=== PATIENT | female | born 1950 | race Caucasian/White ===

== ENCOUNTER 2022-01-06 03:29 | Day surgery (SDC) | payer BC, SELFPAY ==
[2021-12-20 15:04] VITALS: BMI 33.0
--- NOTE | 2022-01-05 16:10 | PM.HPGS ---
History of Present Illness History of Present Illness Consent: Risks, benefits, and alternatives have been discussed and questions answered. Patient agrees to proceed with procedure. Chief complaint: neoplasm screening Narrative: Lawanda Worthy is a 71 year old female Referred for colon cancer screening. Her last colonoscopy was 20 years ago Review of Systems Review of Systems: All systems reviewed & are unremarkable except as noted in HPI and below PMFSH Past Medical History Medical History Graves disease Hypothyroidism, unspecified Obesity Ovary removal, prophylactic Rotator cuff dysfunction Surgical History Surgical History H/O radioactive iodine thyroid ablation History of carpal tunnel release Hx of tonsillectomy Family History Family History Other Diabetes mellitus Family history of alcoholism Social History Social History Smoking status: Never smoker Alcohol intake: current Alcohol use details: 1 drink per month Substance use: never Substance use type: does not use Other substance usage details: CBD Living arrangements: with family Spiritual care concerns: No Meds Home Medications and Allergies Home Medications Medication Instructions Recorded Confirmed Type losartan 100 mg tablet 100 mg PO DAILY 02/28/19 12/20/21 History atorvastatin 10 mg tablet 10 mg PO QPM 02/27/20 12/20/21 History docusate sodium 100 mg capsule 100 mg PO ONCE PRN Constipation 02/27/20 12/20/21 History (Colace) baclofen 20 mg tablet 20 mg PO TID 09/01/20 12/20/21 History Jef's wort 300 mg capsule 300 mg PO DAILY 09/07/21 12/20/21 History ascorbic acid (vitamin C) 500 mg 500 mg PO DAILY 09/07/21 12/20/21 History capsule biotin 1 mg capsule 1 mg PO 3XW 09/07/21 12/20/21 History calcium carbonate 500 mg-vitamin 1 tablet PO DAILY 09/07/21 12/20/21 History D3 10 mcg (400 unit) tablet fluticasone propionate 50 1 spray intranasal DAILY PRN 09/07/21 12/20/21 History mcg/actuation nasal Allergy Symptoms spray,suspension (Allergy Relief (fluticasone)) magnesium 30 mg tablet 30 mg PO DAILY 09/07/21 12/20/21 History multivit with 1 tablet PO DAILY 09/07/21 12/20/21 History tneaglda-brvn-IR-lutein 8 mg iron-400 mcg-300 mcg tablet (Multivitamin Women 50 Plus) olopatadine 0.1 % eye drops 1 drp EACH EYE DAILY 09/07/21 12/20/21 History oxycodone-acetaminophen 5 mg-325 1 tablet PO DAILY 09/07/21 12/20/21 History mg tablet (Percocet) vitamin E 200 unit capsule 200 unit PO DAILY 09/07/21 12/20/21 History levothyroxine 137 mcg tablet 137 mcg PO DAILY #90 tabs 10/04/21 12/20/21 Rx (Synthroid) lidocaine 5 % topical patch 1 patch topical PRN PRN Pain 12/20/21 12/20/21 History lifitegrast 5 % eye drops in a 1 drp EACH EYE BID 12/20/21 12/20/21 History dropperette (Xiidra) valacyclovir 500 mg tablet 500 mg PO DAILY PRN other 12/20/21 12/20/21 History liothyronine 5 mcg tablet See Rx Instructions .Route 12/23/21 Rx .COMPLEX #90 tabs sodium,potassium,mag sulfates 17.5 See Rx Instructions .Route 01/04/22 Rx gram-3.13 gram-1.6 gram oral soln .COMPLEX #1 dose pk (Suprep Bowel Prep Kit) Allergies Allergy/AdvReac Type Severity Reaction Status Date / Time diclofenac AdvReac Unknown unknown Verified 01/06/22 07:19 gluten AdvReac Unknown Unknown Verified 01/06/22 07:19 lactose AdvReac Unknown Unknown Verified 01/06/22 07:19 Exam Resp: Auscultation: clear to auscultation bilaterally Cardio: Rate: regular rate Rhythm: regular rhythm GI: GI Palp: Yes Soft to palpation and No Tenderness to palpation present (GI) Assessment and Plan Assessment and plan (1) Colon cancer screening: Code(s): Z12.11 - Encounter for screening for malignant neoplasm
[2022-01-06 07:20] VITALS: BP 167/91; PULSE 81; RESP 18; TEMP 36.2; O2SAT 99
[2022-01-06] MEDS: LACTATED RINGERS 1,000 ML 150 ML IV CONT (07:32)
--- NOTE | 2022-01-06 08:17 | WPDANESEPPF ---
Anes - Initial Pre Proc Eval Procedure: Operation Date: 01/06/22 08:30 Proposed Procedures p Screening Colonoscopy - Izaiah Del Rosario MD Date/Time: 01/06/22 08:17 Surgeon: Izaiah Del Rosario MD Pre Op Diagnosis: neoplasm screening Patient Data Age: 71 Gender: F Height: 1.63 m Weight: 87 kg Last Vital Signs Temp 97.2 F L 01/06/22 07:20 Pulse 81 01/06/22 07:20 Resp 18 01/06/22 07:20 BP 167/91 H 01/06/22 07:20 Pulse Ox 99 01/06/22 07:20 O2 Del Method Room Air 01/06/22 07:20 Allergies Allergy/AdvReac Type Severity Reaction Status Date / Time diclofenac AdvReac Unknown unknown Verified 01/06/22 07:19 gluten AdvReac Unknown Unknown Verified 01/06/22 07:19 lactose AdvReac Unknown Unknown Verified 01/06/22 07:19 Home Medications Medication Instructions Recorded Confirmed Type losartan 100 mg tablet 100 mg PO DAILY 02/28/19 12/20/21 History atorvastatin 10 mg tablet 10 mg PO QPM 02/27/20 12/20/21 History docusate sodium 100 mg capsule 100 mg PO ONCE PRN Constipation 02/27/20 12/20/21 History (Colace) baclofen 20 mg tablet 20 mg PO TID 09/01/20 12/20/21 History [place]'s wort 300 mg capsule 300 mg PO DAILY 09/07/21 12/20/21 History ascorbic acid (vitamin C) 500 mg 500 mg PO DAILY 09/07/21 12/20/21 History capsule biotin 1 mg capsule 1 mg PO 3XW 09/07/21 12/20/21 History calcium carbonate 500 mg-vitamin 1 tablet PO DAILY 09/07/21 12/20/21 History D3 10 mcg (400 unit) tablet fluticasone propionate 50 1 spray intranasal DAILY PRN 09/07/21 12/20/21 History mcg/actuation nasal Allergy Symptoms spray,suspension (Allergy Relief (fluticasone)) magnesium 30 mg tablet 30 mg PO DAILY 09/07/21 12/20/21 History multivit with 1 tablet PO DAILY 09/07/21 12/20/21 History mszoxbeo-wekp-QF-lutein 8 mg iron-400 mcg-300 mcg tablet (Multivitamin Women 50 Plus) olopatadine 0.1 % eye drops 1 drp EACH EYE DAILY 09/07/21 12/20/21 History oxycodone-acetaminophen 5 mg-325 1 tablet PO DAILY 09/07/21 12/20/21 History mg tablet (Percocet) vitamin E 200 unit capsule 200 unit PO DAILY 09/07/21 12/20/21 History levothyroxine 137 mcg tablet 137 mcg PO DAILY #90 tabs 10/04/21 12/20/21 Rx (Synthroid) lidocaine 5 % topical patch 1 patch topical PRN PRN Pain 12/20/21 12/20/21 History lifitegrast 5 % eye drops in a 1 drp EACH EYE BID 12/20/21 12/20/21 History dropperette (Xiidra) valacyclovir 500 mg tablet 500 mg PO DAILY PRN other 12/20/21 12/20/21 History liothyronine 5 mcg tablet See Rx Instructions .Route 12/23/21 Rx .COMPLEX #90 tabs sodium,potassium,mag sulfates 17.5 See Rx Instructions .Route 01/04/22 Rx gram-3.13 gram-1.6 gram oral soln .COMPLEX #1 dose pk (Suprep Bowel Prep Kit) Patient hx anesthesia problems: none Family hx anesthesia problems: none Results Review: All pre-operative results and documents have been reviewed as part of the pre-operative evaluation. [facility] Past Medical History Medical History Graves disease Hypothyroidism, unspecified Obesity Ovary removal, prophylactic Rotator cuff dysfunction Surgical History Surgical History H/O radioactive iodine thyroid ablation History of carpal tunnel release Hx of tonsillectomy Family History Family History Other Diabetes mellitus Family history of alcoholism Social History Social History Smoking status: Never smoker Alcohol intake: current Alcohol use details: 1 drink per month Substance use: never Substance use type: does not use Other substance usage details: CBD Living arrangements: with family Spiritual care concerns: No Anes - Eval Final PreProcedure Day of Procedure 10/13/22 08:17 Patient weight: obese Heart: regular rate and rhythm Lungs
[2022-01-06 08:58] VITALS: BP 145/70; PULSE 65; RESP 18; O2SAT 97
[2022-01-06 09:08] VITALS: BP 121/69; PULSE 66; RESP 23; O2SAT 97
[2022-01-06 09:18] VITALS: BP 146/70; PULSE 61; RESP 20; O2SAT 100
== END 2022-01-06 09:30 | disposition home or self-care (01) ==
PROVIDERS: PCP Family Medicine; Visit Provider Internal Medicine Gastroenterology
PROC: 0DJD8ZZ Inspection of Lower Intestinal Tract, Via Natural or Artificial Opening Endoscopic (ICD-10-PCS; CPT 45378; principal; 2022-01-06 08:30)
DX: Z12.11 Encounter for screening for malignant neoplasm of colon (principal); K57.30 Diverticulosis of large intestine without perforation or abscess without bleeding; E89.0 Postprocedural hypothyroidism; E66.9 Obesity, unspecified; Z68.32 Body mass index [BMI] 32.0-32.9, adult
CPT/HCPCS: 45378; J2704; J7120

== ENCOUNTER 2022-05-24 13:41 | Outpatient (CLI) | payer BC, SELFPAY ==
--- NOTE | ~2022-05-24 | XR_ITS ---
EXAM: XR shoulder LT min 2V DATE: 05/24/2022 14:25 HISTORY: PAIN IN UNSP HAND, PAIN IN UNSP KNEE, PAIN IN UNSP SHOULDER, . COMPARISON: None available. FINDINGS: Decreased mineralization. No fracture or dislocation. No lytic or blastic lesion. Senescen t changes in the lungs. Moderate AC joint and glenohumeral joint degenerative change. Subacromial sheryl rowing. Acromial tip enthesopathy and osteophytosis. Incidental note of multilevel degenerative loyola e in the thoracic spine. No erosion or periosteal change. Soft tissues within normal limits. 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 Likely rotator cuff pathology . Reviewed, dictated and finalized at location K. LATOR ASSEMBLER IMPRESSION: Moderate polyarticular osteoarthritis of the left shoulder. Likely rotator cuff pathology.
--- NOTE | ~2022-05-24 | XR_ITS ---
XR lumbar spine 2-3V 05/24/2022 14:25 Indication: Low back pain Procedure: 3 views of the lumbar spine Comparison: 08/21/2015 Findings: There is disc narrowing at all lumbar levels. There is advanced multilevel facet hypertroph y. There is grade 1 degenerative spondylolisthesis at L4-5. There is mild dextrocurvature of the lumb ar spine. Sacral foramen are symmetric. Impression: 1: Progression of severe lumbar spondylosis. Reviewed, dictated and finalized at location L. ETRICAL NURSE Impression: 1: Progression of severe lumbar spondylosis.
--- NOTE | ~2022-05-24 | XR_ITS ---
. XR cervical spine 4-5V 05/24/2022 14:25 Indication: Neck pain Procedure: 4 views of the cervical spine Comparison: No prior studies for comparison. Findings: Vertebral body heights are maintained. There is disc narrowing at C3-4, C4-5 and C5-6. No p revertebral soft tissue abnormality. There is facet osteoarthropathy at C3-4 through C6-C7, more so o n the left. Lung apices are normal. Odontoid process is normal. Impression: 1: Moderate cervical spondylosis. Reviewed, dictated and finalized at location L. T ROCK LAYER Impression: 1: Moderate cervical spondylosis.
--- NOTE | ~2022-05-24 | XR_ITS ---
EXAM: XR shoulder RT min 2V DATE: 05/24/2022 14:25 HISTORY: PAIN IN UNSP HAND, PAIN IN UNSP KNEE, PAIN IN UNSP SHOULDER, . COMPARISON: None available. FINDINGS: Decreased mineralization. No fracture or dislocation. No lytic or blastic lesion. Moderate AC joint and glenohumeral joint degenerative change. Acromial tip enthesopathy and osteophytosis wit h subacromial space narrowing. No erosion or periosteal change. Soft tissues within normal limits. Se nescent changes in the lungs IMPRESSION: Moderate polyarticular osteoarthritis. Likely rotator cuff pathology. Reviewed, dictated and finalized at location K. OYMENT ENGINEER IMPRESSION: Moderate polyarticular osteoarthritis. Likely rotator cuff patholog yRuma
--- NOTE | ~2022-05-24 | XR_ITS ---
EXAM: XR thoracic spine 3V DATE: 05/24/2022 14:25 HISTORY: PAIN IN UNSP HAND, PAIN IN UNSP KNEE, PAIN IN UNSP SHOULDER, . COMPARISON: 08/29/2017. FINDINGS: The T12-L1 disc space is not completely included in the [id number]-ye-lbgq. Calcified right uppe r lobe granuloma. Senescent changes in the lungs. Exaggerated thoracic kyphosis. 2 mm anterolisthesis at T2-3, alignment otherwise intact. Mild anterior wedge deformity at T11 and T12, stable. Remaining vertebral body heights are maintained. Multilevel disc space narrowing and marginal osteophytosis in cluding bridging anterior and lateral osteophytes at multiple levels. No traumatic malalignment or fr acture. Visualized lung parenchyma is clear. IMPRESSION: Exam limited by field of view, as noted above. Thoracic kyphosis. Minimal grade 1 anterol isthesis at T2-3. Multilevel moderate degenerative disc disease in the thoracic spine. Reviewed, dictated and finalized at location K. LANCE MODEL IMPRESSION: Exam limited by field of view, as noted above. Thoracic kyphosis. M inimal grade 1 anterolisthesis at T2-3. Multilevel moderate degenerative disc d isease in the thoracic spine.
--- NOTE | ~2022-05-24 | XR_ITS ---
EXAM: XR hand LT min 3V, XR hand RT min 3V DATE: 05/24/2022 14:25 HISTORY: PAIN IN UNSP HAND, PAIN IN UNSP KNEE, PAIN IN UNSP SHOULDER, . COMPARISON: None available. FINDINGS: Decreased mineralization. No fracture or dislocation. No lytic or blastic lesion. Scattere d mild-moderate degenerative changes in multiple joints in the bilateral hands, most evident in the D IP joints of the fingers and bilateral triscaphe joints. Mild chondrocalcinosis. No erosion or perios teal change. Soft tissues within normal limits. IMPRESSION: Mild-moderate polyarticular degenerative change, most evident in the DIP joints of the fi ngers and bilateral triscaphe joints. Chondrocalcinosis. Reviewed, dictated and finalized at location K. HAND IMPRESSION: Mild-moderate polyarticular degenerative change, most evident in th e DIP joints of the fingers and bilateral triscaphe joints. Chondrocalcinosis.
--- NOTE | ~2022-05-24 | XR_ITS ---
EXAM: XR_[id number]_CR, XR_[id number]_CR DATE: 05/24/2022 14:25 HISTORY: PAIN IN UNSP HAND, PAIN IN UNSP KNEE, PAIN IN UNSP SHOULDER, . COMPARISON: None available. FINDINGS: Decreased mineralization. No fracture or dislocation. No lytic or blastic lesion. Moderate bilateral medial joint space narrowing. Mild bilateral tricompartmental osteophytosis. No erosion or periosteal change. Soft tissues within normal limits. IMPRESSION: Tricompartmental bilateral knee osteoarthritis, moderate in the medial compartments. Reviewed, dictated and finalized at location K. ATTENDANT IMPRESSION: Tricompartmental bilateral knee osteoarthritis, moderate in the med ial compartments.
== END 2022-05-24 13:42 | disposition home or self-care (01) ==
LOC: ANHIMG 13:46
PROVIDERS: PCP Family Medicine; Visit Provider Pain Medicine Interventional Pain Medicine
DX: M79.643 Pain in unspecified hand (principal); M25.569 Pain in unspecified knee; M25.519 Pain in unspecified shoulder; M40.204 Unspecified kyphosis, thoracic region; M51.34 Other intervertebral disc degeneration, thoracic region; M47.26 Other spondylosis with radiculopathy, lumbar region; M47.22 Other spondylosis with radiculopathy, cervical region; M11.242 Other chondrocalcinosis, left hand; M11.241 Other chondrocalcinosis, right hand; M15.9 Polyosteoarthritis, unspecified
CPT/HCPCS: 72050; 72072; 72100; 73030; 73130; 73560

== ENCOUNTER → 2023-04-05 13:00 | Outpatient (CLI) | payer BC, SELFPAY ==
--- NOTE | ~2023-04-05 | DEXA_ITS ---
Bone Density Report Name: FLOR ALMARAZ Age: 72 Sex: Female Ethnicity: White Date of : 1950 Indication: postmenopausal; screening for osteoporosis; height loss; Referring Provider: Cassy Hamilton Study: Bone densitometry was performed. Exam Date: April 05, 2023 Accession number: [id number] Bone Density: Region BMD T-score Z-score Classification AP Spine (L1, L2) 1.063 0.8 3.0 Normal Femoral Neck (Left) 0.764 -0.8 1.3 Normal Total Hip (Left) 0.790 -1.2 0.5 Osteopenia Femoral Neck (Right) 0.713 -1.2 0.8 Osteopenia Total Hip (Right) 0.750 -1.6 0.2 Osteopenia Total Hip Mean 0.770 -1.4 0.4 Osteopenia World Health Organization criteria for BMD impression classify patients as: Normal (T-score at or above -1.0), Osteopenia (T-score between -1.0 and -2.5), or Osteoporosis (T-score at or below -2.5). 10-year Fracture Risk(1): Major Osteoporotic Fracture 10% Hip Fracture 1.7% Reported Risk Factors: [place] (), Neck BMD=0.713, BMI=27.9 (1) FRAX(R) Version 3.08. Fracture probability calculated for an untreated patient. Fracture probability may be lower if the patient has received treatment. Clinical Information Provided by Patient: Has used the following medications: Calcium, MTV Patient maximum height was 64 Menopause Age: 63 No regular weight bearing exercise Does not regularly consume dairy products Drinks caffeinated beverages Onset of menses at age 11 Number of children 4 Impression: The patient has low bone mass, based on the Right Total Hip T-score. The patient has an estimated ten-year risk of hip fracture of 1.7% and an estimated ten-year risk of major fracture of 10%, based on the WHO FRAX algorithm. Discussion: BONE DENSITY IS LOW AT ONE OR MORE SKELETAL SITES. This patient's lowest T-score is low at one or more skeletal sites. It meets the World Health Organization's (WHO) criteria for ?low bone mass? (T-score between -1.0 and -2.5). The patient's 10-year risk of fracture as calculated by FRAX is less than the threshold where pharmacological therapy is recommended by the National Osteoporosis Foundation (NOF). However, all treatment decisions require clinical judgment and consideration of individual patient factors, including patient preferences, comorbidities, previous drug use, risk factors not captured in the FRAX model (e.g., frailty, falls, vitamin D deficiency, increased bone turnover, interval significant decline in bone density) and possible under or overestimation of fracture risk by FRAX. The patient should follow a healthful lifestyle (good nutrition with adequate calcium and vitamin D, and appropriate weight-bearing exercise). Follow-Up: Consider repeating this study in 2 to 3 years to reassess this patient's status, or sooner if there is some new clinica
== END ==
PROVIDERS: PCP Internal Medicine Endocrinology, Diabetes & Metabolism; Visit Provider Internal Medicine Endocrinology, Diabetes & Metabolism
DX: Z78.0 Asymptomatic menopausal state (principal); M85.852 Other specified disorders of bone density and structure, left thigh; M85.851 Other specified disorders of bone density and structure, right thigh
CPT/HCPCS: 77080

== ENCOUNTER → 2023-04-05 13:01 | Outpatient (CLI) | payer BC, SELFPAY ==
--- NOTE | ~2023-04-05 | MM_ITS ---
EXAMINATION: MM screening chad BI w keisha HISTORY: Screening mammogram TECHNIQUE: Craniocaudal and mediolateral oblique 3-D tomosynthesis images were obtained and synthetic 2-D images were generated. CAD analysis was submitted and interpreted. COMPARISON: 04/15/2008 BREAST PARENCHYMAL COMPOSITION: The breasts are almost entirely fatty. FINDINGS: No suspicious mass, calcification, or architectural distortion are identified in either erika ast to suggest malignancy. There has been no suspicious interval change. IMPRESSION: 1. No mammographic evidence of malignancy. 2. Recommend routine screening mammography in one year. BI-RADS Category 1: Negative Reviewed, dictated and finalized at location A. ICAL APPLICATION MANAGER
== END ==
PROVIDERS: PCP Family Medicine; Visit Provider Family Medicine
DX: Z12.31 Encounter for screening mammogram for malignant neoplasm of breast (principal)
CPT/HCPCS: 77063; 77067

== ENCOUNTER 2023-06-16 12:17 | Outpatient (CLI) | payer BC, SELFPAY ==
--- NOTE | ~2023-06-16 | XR_ITS ---
XR lumbar spine 2-3V DATE: 06/16/2023 12:41 INDICATION: Back pain, radiculopathy. TECHNIQUE: AP, lateral, coned lateral lumbosacral views COMPARISON: May 24, 2022 lumbar spine FINDINGS: There is grade 1 anterolisthesis at L4-5 due to prominent degenerative changes apophyseal j oints. Multilevel degenerative disc disease, moderately severe at L4-5 and severe at the remaining lumbar an d lumbosacral interspaces, especially L5-S1. Minimal dextroscoliosis. The lumbar pedicles are intact. No fracture or bone destruction is evident. Normal alignment at the sacroiliac joints. Osteopenia. IMPRESSION: Osteopenia Minimal dextroscoliosis Multilevel moderately severe to severe degenerative disc disease Grade 1 anterolisthesis at L4-5 due to prominent degenerative change at the apophyseal joints. Reviewed, dictated and finalized at location B. IMPRESSION: Osteopenia Minimal dextroscoliosis Multilevel moderately severe to severe degenerative disc disease Grade 1 anterolisthesis at L4-5 due to prominent degenerative change at the apo physeal joints.
--- NOTE | ~2023-06-16 | XR_ITS ---
XR cervical spine 4-5V DATE: 06/16/2023 12:40 INDICATION: Chronic neck pain, radiculopathy. TECHNIQUE: AP, open-mouth, lateral and flexion and extension lateral views COMPARISON: May 24, 2022 cervical spine FINDINGS: C1 and C2 are normally aligned and the odontoid process is intact. There is stable minimal anterolisthesis at C2-3 and C3-4. No cervical instability is noted on flexion or extension. There is mild loss of interspace height at C4-5 moderately prominent loss of interspace height at C5- 6. There is posterior spurring at C5-6. No fracture or dislocation or locked facet or prevertebral soft tissue swelling is evident. There is prominent anterior change at the apophyseal joints of the cervical spine. IMPRESSION: Prominent degenerative changes of apophyseal joints Minimal anterolisthesis at C2-3 and C3-4 Mild loss of height at C4-5, moderately prominent loss of interspace height and mild posterior spurri ng at C5-6. Reviewed, dictated and finalized at location B. IMPRESSION: Prominent degenerative changes of apophyseal joints Minimal anterolisthesis at C2-3 and C3-4 Mild loss of height at C4-5, moderately prominent loss of interspace height and mild posterior spurring at C5-6.
--- NOTE | ~2023-06-16 | XR_ITS ---
XR thoracic spine 3V DATE: 06/16/2023 12:41 INDICATION: Chronic back pain, radiculopathy TECHNIQUE: AP, lateral, swimmer views COMPARISON: None FINDINGS: Osteopenia. Diffuse idiopathic skeletal hyperostosis of the thoracic spine. No fracture or dislocation or bone destruction. The thoracic pedicles appear intact. No paraspinal so ft tissue thickening. IMPRESSION: Osteopenia Diffuse idiopathic skeletal hyperostosis of the thoracic spine Reviewed, dictated and finalized at location B.
== END 2023-06-16 12:18 | disposition home or self-care (01) ==
LOC: ANHIMG 12:18
PROVIDERS: PCP Family Medicine; Visit Provider Pain Medicine Interventional Pain Medicine
DX: M51.36 Other intervertebral disc degeneration, lumbar region (principal); M85.88 Other specified disorders of bone density and structure, other site; M48.04 Spinal stenosis, thoracic region
CPT/HCPCS: 72050; 72072; 72100

== ENCOUNTER 2024-06-18 14:52 | Outpatient (CLI) | payer BC, SELFPAY ==
--- NOTE | ~2024-06-18 | XR_ITS ---
XR thoracic spine 3V 06/18/2024 15:23 Indication: Radiculopathy Procedure: 3 views thoracic spine Comparison: No prior studies for comparison. Findings: There is advanced multilevel degenerative spondylosis of the thoracic spine with accentuate d kyphosis. There are prominent marginal osteophytes of the mid and lower thoracic spine. Surrounding osseous structures within normal limits. No acute fracture is identified Impression: 1: Severe thoracic spondylosis with accentuated kyphosis. Reviewed, dictated and finalized at location A. Impression: 1: Severe thoracic spondylosis with accentuated kyphosis.
--- NOTE | ~2024-06-18 | XR_ITS ---
XR_CERV2-3V_CR 06/18/2024 15:23 Indication: Radiculopathy Procedure: 3 views cervical spine Comparison: 06/16/2023 Findings: Vertebral body heights are maintained. Normal alignment. No prevertebral soft tissue swelli ng. No acute fracture or traumatic dislocation. There is severe multilevel facet hypertrophy, left gr eater than right. There is multilevel uncinate hypertrophy. Lung apices are normal Impression: 1: Severe cervical spondylosis similar to prior examination. Reviewed, dictated and finalized at location A. Impression: 1: Severe cervical spondylosis similar to prior examination.
--- NOTE | ~2024-06-18 | XR_ITS ---
XR lumbar spine 2-3V 06/18/2024 15:23 Indication: Back pain Procedure: 3 views lumbar spine Comparison: 06/16/2023 Findings: There is disc narrowing at all visualized lower thoracic and lumbar disc levels. There is g rade 1-2 degenerative spondylolisthesis at L4-5 secondary to facet hypertrophy. There is severe facet hypertrophy at L3-4 through L5-S1. There is endplate degenerative change and marginal osteophytes at most levels. There is mild dextrocurvature of the lumbar spine. No fracture or traumatic malalignmen t. Impression: 1: Severe lumbar spondylosis. Reviewed, dictated and finalized at location A. Impression: 1: Severe lumbar spondylosis.
--- OUTSIDE RECORDS SUMMARY | 2024-06-18 17:28 | XMS_ITS | Clinical Summary ---
Author Organization [facility] Address [address] [place] [address] Phone Care Team Providers Care [employer] Certified Network Associate Name Role Phone Janet Adame MD Primary Care Provider [phone] Allergies No known active allergies Medications oxyCODONE-acetami nophen (PERCOCET) 5-325 mg tablet Take 1-2 Tablet by mouth every 6 hours as needed for Pain. Max Daily Amount: 8 Tablet 50 Tablet 0 08/11/19 16 Active atorvastatin (LIPITOR) 10 mg tablet Take 10 mg by mouth Daily LATE. Active baclofen (LIORESAL) 20 mg tablet Take 20 mg by mouth 3 times daily as needed for Pain. Active levothyroxine 125 mcg tablet Take 125 mcg by mouth daily manager of exhibitions and collections. Active liothyronine (CYTOMEL) 5 mcg Tablet Take 5 mcg by mouth daily. Active lisinopril (PRINIVIL) 40 mg tablet Take 40 mg by mouth daily. Active cetirizine (ZYRTEC) 10 mg tablet Take 10 mg by mouth daily. Active multivitamin,tx-i mel-ca-min (THERA-M) 27-0.4 mg Tablet Take 1 Tablet by mouth daily. Active calcium citrate-vitamin D3 (CITRACAL WITH VIT D) 200 mg calcium -250 unit Tablet Take by mouth. Activ e magnesium oxide 250 mg Tablet Take 250 mg by mouth. Active VITAMIN E, DL,TOCOPHERYL ACET, (VITAMIN E, DL,ACETATE,) 400 unit Capsule Take 400 Units by mouth daily. Active ascorbic acid (VITAMIN C) 1,000 mg Tablet Take 1,000 mg by mouth 2 times daily. Active docusate sodium (COLACE) 100 mg capsule Take 100 mg by mouth 2 times daily. Active fluticasone (FLONASE) 50 mcg/spray [place], Suspension Administer 2 Sprays in each nostril daily. Active losartan (COZAAR) 100 mg tablet Take 100 mg by mouth daily. Active omeprazole (PriLOSEC) 40 mg Capsule, Delayed Release(E.C.) 06/23/19 18 Active XIIDRA 5 % Dropperette 07/03/19 18 Active baclofen (LIORESAL) 20 mg tablet Take 1 Tablet (20 mg) by mouth every 8 hours as needed. 270 Tablet 2 12:45 PM CDT 08/27/19 22 Active lifitegrast (Xiidra) 5 % Dropperette Instill one drop into both eyes twice a day. 60 Each 11 3 1:15 PM CDT 09/10/19 22 Active clotrimazole-beta methasone (LOTRISONE) 1-0.05 % Cream APPLY TO THE AFFECTED AND SURROUNDING AREAS OF SKIN TWO TIMES A DAY (MORNING AND EVENING) FOR 2 WEEKS 45 Gram 3 2 2:01 PM CDT 09/14/19 22 Active sodium, potassium and magnesium sulfates (Suprep Bowel Prep Kit) 17.5-3.13-1.6 gram Recon Soln DILUTE; drink full amount early evening before AND next morning at least 2 hr before procedure; follow w 960 mL water 354 mL 2 12:09 PM CDT 01/05/20 22 Active lidocaine (LIDODERM) 5 % Adhesive Patch, Medicated Apply 1-2 patches to the skin daily as needed for 12 hours on and 12 hours off. 60 Patch 1 3 11:12 AM RACING MANAGER 01/29/20 22 Active oxyCODONE-acetami nophen (PERCOCET) 5-325 mg tablet Take 1 tablet by mouth once to twice daily as needed 40 Tablet 3 2:13 PM RACING MANAGER 04/22/19 23 Active trifluridine (VIROPTIC) 1 % solution Administer 1 Drop in right eye every 2 hours while awake. 7.5 mL 3 4:21 PM RACING MANAGER 04/29/19 23 Active valACYclovir (VALTREX) 1 gram tablet Take 1 tablet (1 gram) by mouth 3 times daily for 10 days. 30 Tablet 3 12:42 PM RACING MANAGER 04/29/19 23 Active valACYclovir (VALTREX) 500 mg tablet TAKE ONE TABLET BY MOUTH ONCE DAILY 30 Tablet 5 05/15/19 23 Active baclofen (LIORESAL) 20 mg tablet Take 1 Tablet (20 mg) by mouth every 8 hours as needed. 270 Tablet 1 3 5:40 PM RACING MANAGER 05/20/19 23 Active baclofen (LIORESAL) 20 mg tablet Take 1 Tablet (20 mg) by mouth every 8 hours as needed. 270 Tablet 05/28/19 23 Active oxyCODONE-acetami nophen (PERCOCET) 5-325 mg tablet Take 1 Tablet by mouth 2 times daily as needed. (Do not refill until 07/04/22) 10 Tablet 3 4:27 PM CDT 06/24/19 23 Active baclofen (LIORESAL) 20 mg tablet Take 1 tablet by mouth 3 times daily as needed. 270 Tablet 3 12:38 PM CDT 08/02/19 23 Active oxyCODONE-acetami nophen (PERCOCET) 5-325 mg tablet TAKE ONE TABLET BY MOUTH TWICE DAILY NEEDED. 40 Tablet 3 12:38 PM CDT 08/02/19 23 Active diclofenac sodium ([place]aid) 20 mg/gram /actuation(2 %) solution in metered-dose pumpIndications:P rimary osteoarthritis of both knees Apply 40 mg to affected area 2 times daily. 1 Each 1 08/09/19 23 Active neomycin-polymyxi n-dexAMETHasone (MAXITROL) 3.5mg/mL-10,000 unit/mL-0.1 % suspension Administer 1 Drop into affected eye(s) every 3-4 hours. 5 mL 3 3:16 PM CDT 08/18/19 23 Active oxyCODONE-acetami nophen (PERCOCET) 5-325 mg tablet Take 1 Tablet by mouth 2 times daily as needed. 40 Tablet 3 1:06 PM CDT 08/30/19 23 Active valACYclovir (VALTREX) 500 mg tablet Take 1 Tablet (500 mg) by mouth daily. 30 Tablet 5 3 1:16 PM CDT 09/06/19 23 Active liothyronine (CYTOMEL) 5 mcg Tablet Take 1 Tablet (5 mcg) by mouth daily. 90 Tablet 1 09/13/19 23 Active oxyCODONE-acetami nophen (PERCOCET) 5-325 mg tablet Take 1 Tablet by mouth 2 times daily as needed. 40 Tablet 3 2:03 PM CDT 12/06/19 23 Active lidocaine (LIDODERM) 5 % Adhesive Patch, Medicated APPLY 1-2 PATCHES TO AFFECTED AREA NEEDED. LEAVE ON FOR 12 HOURS, REMOVE FOR 12 HOURS. 60 Patch 1 4 4:38 PM CDT 01/03/20 23 Active esomeprazole (NexIUM) 40 mg Capsule, Delayed Release(E.C.) TAKE 1 CAPSULE BY MOUTH DAILY BEFORE MEALS 30 Capsule 3 3:25 PM RACING MANAGER 02/23/20 23 Active esomeprazole (NexIUM) 40 mg Capsule, Delayed Release(E.C.) TAKE 1 CAPSULE BY MOUTH DAILY BEFORE MEALS 30 Capsule 6 02/23/20 23 Active ondansetron (ZOFRAN ODT) 4 mg Tablet, Rapid Dissolve DISSOLVE 1 TABLET BY MOUTH THREE TIMES DAILY NEEDED 30 Tablet 2 3 3:25 PM RACING MANAGER 02/23/20 23 Active baclofen (LIORESAL) 20 mg tablet Take 1 Tablet (20 mg) by mouth 3 times daily as needed. 270 Tablet 3 4:05 PM RACING MANAGER 02/25/20 23 Active oxyCODONE-acetami nophen (PERCOCET) 5-325 mg tablet Take 1 Tablet by mouth 2 times daily as needed. 40 Tablet 3 10:55 AM RACING MANAGER 02/28/20 23 Active losartan (COZAAR) 100 mg tablet Take 1 Tablet (100 mg) by mouth daily. 90 Tablet 3 4 2:00 PM CDT 05/04/19 24 Active valACYclovir (VALTREX) 500 mg tablet Take 1 Tablet (500 mg) by mouth daily. 30 Tablet 5 4 11:21 AM CDT 06/26/19 24 Active oxyCODONE-acetami nophen (PERCOCET) 5-325 mg tablet Take one tablet by mouth twice daily as needed. m54.17 lumbar region radiculopathy 40 Tablet 4 5:04 PM CDT 09/06/19 24 Active baclofen (LIORESAL) 20 mg tablet Take 1 Tablet (20 mg) by mouth 3 times daily as needed. 270 Tablet 4 4:38 PM CDT 10/04/19 24 Active atorvastatin (LIPITOR) 10 mg tablet TAKE ONE TABLET BY MOUTH ONCE DAILY 90 Tablet 4 5 2:13 PM RACING MANAGER 10/31/19 24 Active losartan (COZAAR) 100 mg tablet Take 1 Tablet (100 mg) by mouth daily. 90 Tablet 3 5 2:18 PM RACING MANAGER 10/31/19 24 Active lifitegrast (Xiidra) 5 % Dropperette Instill one drop into both eyes twice a day 180 Each 4 5 4:22 PM CDT 11/01/19 24 Active Lidocaine 5 % Cream Apply topically to affected area two times daily as needed. 100 Gram 1 11/01/19 24 Active baclofen (LIORESAL) 20 mg tablet Take 1 Tablet (20 mg) by mouth 3 times daily as needed. 270 Tablet 4 12:48 PM CDT 12/27/19 24 Active Lidocaine 5 % Cream Apply to the affected area(s) twice daily as needed 100 Gram 1 12/27/19 24 Active lidocaine (LIDODERM) 5 % Adhesive Patch, Medicated APPLY 1-2 PATCHES ONCE DAILY NEEDED. LEAVE ON FOR 12 HOURS, OFF FOR 12 HOURS. 60 Patch 1 4 2:54 PM CDT 12/29/19 24 Active lidocaine (LIDODERM) 5 % Adhesive Patch, Medicated Apply 1-2 Patches to affected area for 12 hours on, then 12 hours off as needed 60 Patch 1 5 1:12 PM RACING MANAGER 02/20/20 24 Active liothyronine (CYTOMEL) 5 mcg Tablet Take 1 Tablet (5 mcg) by mouth daily. 90 Tablet 1 5 2:07 PM RACING MANAGER 03/11/20 24 Active valACYclovir (VALTREX) 500 mg tablet Take 1 Tablet (500 mg) by mouth 1 time daily as needed. 90 Tablet 4 11:39 AM RACING MANAGER 03/25/20 24 Active baclofen (LIORESAL) 20 mg tablet Take 1 Tablet (20 mg) by mouth 3 times daily as needed. 270 Tablet 5 2:44 PM RACING MANAGER 05/08/19 25 Active oxyCODONE-acetami nophen (PERCOCET) 5-325 mg tablet Take 1 Tablet by mouth 2 times daily as needed. Max Daily Amount: 2 Tablets 40 Tablet 5 2:44 PM RACING MANAGER 05/08/19 25 Active levothyroxine 100 mcg tablet Take 1 Tablet (100 mcg) by mouth daily. 90 Tablet 1 5 2:07 PM RACING MANAGER 05/29/19 25 Active lidocaine (LIDODERM) 5 % Adhesive Patch, Medicated APPLY 1-2 PATCHES TO AFFECTED AREA DAILY NEEDED. LEAVE ON FOR 12 HOURS, REMOVE FOR 12 HOURS. 60 Patch 1 5 4:22 PM CDT 06/11/19 25 Active levothyroxine 100 mcg tablet Take 1 Tablet (100 mcg) by mouth daily. 90 Tablet 1 4 12:03 PM RACING MANAGER 09/18/19 24 025 Discontin [facility], or Other Facility Administered Medication Ordered Dose Route Frequency Start Date End Date Status methylPREDNISolone acetate (DEPO-Medrol) 40 mg/mL injection 80 mgIndications:Troch anteric bursitis of left hip 80 mg Intra-arTICu ONE TIME ONLY 05/10/2016 Active Active Problems No known active problems Encounters Date Type Department Care Team Description 06/12/2024 External Device Data [facility] ABSTRACTION Provider, Abstract 06/01/2024 External Device Data [facility] ABSTRACTION Provider, Abstract 05/31/2024 External Device Data [facility] ABSTRACTION Provider, Abstract 05/28/2024 External Device Data [facility]STRACTION Provider, Abstract 05/14/2024 External Device Data [facility]STRACTION Provider, Abstract 04/23/2024 External Device Data [facility] ABSTRACTION Provider, Abstract 04/17/2024 External Device Data [facility] ABSTRACTION Provider, Abstract 04/17/2024 External Device Data [facility] ABSTRACTION Provider, Abstract 04/10/2024 External Device Data [facility] ABSTRACTION Provider, Abstract from Last 3 Months Immunizations Immunization Administration Dates Next Due (SHINGRIX)(50 YRS UP) ZOSTER VACCINE RECOMBINANT, 0.5 ML, IM 07/04/2023,04/21/2023 INFLUENZA VACCINE HIGH DOSE QUADRIVALENT 65 YR UP PF IM 02/04/2023,12/27/2021 INFLUENZA VACCINE HIGH DOSE TRIVALENT SPLIT VIRUS, (65 YR UP), 0.5ML (PF), IM 12/29/2023 Social History Tobacco Use Types Packs/Day Years Used Date Smoking Tobacco: Never Alcohol Use Standard Drinks/Week Comments Not Asked 0 (1 standard drink = 0.6 oz pur e alcohol) Comments Unknown Sex and Gender Information Value Date Recorded Sex Assigned at Not on file Legal Sex Female 4:44 PM CDT Gender Identity Not on file Sexual Orientation Not on file Last Filed Vital Signs Vital Sign Reading Time Taken Comments Blood Pressure 129/80 08/11/2015 10:42 AM CDT Pulse 73 08/11/2015 10:42 AM CDT Temperature - - Respiratory Rate - - Oxygen Saturation - - Inhaled Oxygen Concentration - - Weight 86.2 kg (190 lb) 09/02/2021 10:47 AM CDT Height 162.6 cm (5' 4 ) 09/02/2021 10:47 AM CDT Body Mass Index 32.61 09/02/2021 10:47 AM CDT Plan of Treatment Health Maintenance Due Date Last Done Comments DTAP/TDAP/TD VACCINES (1 - Tdap) 09/11/1967 COLORECTAL SCREENING 1993 Colorectal Cancer Screening 1993 FIT-DNA Q 3 years 1993 FIT/FOBT Q 1 year 1993 Flex Sig/CT Colonography Q 5 years 1993 PNEUMOCOCCAL VACCINE 50+ YEA RS (1 of 1 - PCV) 1998 OSTEOPOROSIS SCREENING 2013 RSV VACCINE (60+ or ) (1 - 1-dose 75+ series) 09/11/2023 ZOSTER VACCINE Completed 07/04/2023, 04/21/2023 INFLUENZA VACCINE Completed 12/29/2023, , 12/27/2021 Insurance [facility] FEDERAL RX [facility] [employer] Commercial RX DO PLANS (INTERNAL) [facility] Internal Plans Care Teams [employer] Certified Network Associate Relationship Specialty Start Date End Date Janet Adame MD PCP - General Family Practice 08/11/15
--- OUTSIDE RECORDS SUMMARY | 2024-06-18 17:29 | XMS_ITS | CONTINUITY OF CARE DOCUMENT ---
Author Name tuan kekemanuel Address Unknown Organization [facility] Address [address] [place] [address] [address] [place] [address] Phone [phone] Care Team Providers Care Route Relief Driver Name Role Phone Jovani De La Paz MD Unavailable [phone] DAVE ALBERT, MICHELADA Unavailable FRANCINE ACOSTA MD Unavailable PROBLEMS Condition Status Date Provider Notes HYPERCHOLESTEROLEMIA active ? Jovani De La Paz MD HTN ESSENTIAL-03/07 NUC NL EF 66 active ? Ryder Moeller RN HYPOTHYROIDISM active ? Jovani De La Paz MD ABN EKG- 02/05 HOLTER SR PVC HR 48-122 active ? Ryder Moeller RN ENCOUNTERS Date Type Provider Location Encounter Diag nosis - In-person encounter Office Visit Jovani De La Paz MD [facility] - In-person encounter Office Visit Jovani De La Paz MD [facility] HYPERCHOLESTEROLEMIAHTN ESSENTIAL-03/07 NUC NL EF 66HYPOTHYROIDISMABN EKG- 02/05 HOLTER SR PVC HR 48-122 VITAL SIGNS Date Observation Value Provider Body Mass Index (Ratio) 34.77 kg/m2 Eduardo [place] blood pressure, diastolic, left arm 96 mm [Hg] Karel [place] blood pressure, systolic, left arm 140 mm [Hg] Karel [place] blood pressure, diastolic, right arm 89 m m[Hg] Karel [place] blood pressure, systolic, right arm 146 m m[Hg] Karel [place] blood pressure, diastolic 89 mm[Hg] Marga olvera [place] blood pressure, systolic 146 mm[Hg] Dom rizzo [place] pulse rate 74 /min Karel [place] oxygen saturation, oximetry 96 % Karel [place] respiratory rate E&M 16 /min Karel [place] weight E&M 195.6 [lb_av] [facility], [facility], left arm 77 mm [Hg] Ryder Moeller RN blood pressure, systolic, left arm 138 mm [Hg] Ryder Moeller RN blood pressure, diastolic, right arm 88 m m[Hg] Ryder Moeller RN blood pressure, systolic, right arm 133 m m[Hg] Ryder Moeller RN blood pressure, diastolic 77 mm[Hg] Silvestre Moeller RN blood pressure, systolic 138 mm[Hg] Ryder Moeller RN pulse rate 63 /min Ryder Moeller RN oxygen saturation, oximetry 97 % Ryder Moeller RN respiratory rate E&M 16 /min Ryder mendoza RN weight E&M 194 [lb_av] Ryder Moeller RN height E&M 63 [in_i] Ryder Moeller RN ALLERGIES No Known Drug Allergies RESULTS Date Observation Value Provider Reference Range Interpretation Location lipoprotein, beta, serum, point, quantitative, calculated 84 mg/dL Brunilda Carballo cholesterol, serum 157 mg/dL Brunilda Carballo thyroid stimulating hormone, serum 0.126 u[IU]/mL Brunilda Carballo alanine aminotransferase (SGPT), serum 42 1/L Brunilda Carballo aspartate aminotransferase (SGOT), serum 26 1/L Brunilda Carballo creatinine, serum 0.69 mg/dL Brunilda Carballo potassium, serum 4.2 mmol/L Brunilda Carballo sodium, serum 143 mmol/L Brunilda Carballo HISTORY OF MEDICATION USE Medication Status Instructions Dates Provider Indications Com ments NYSTATIN-TRIAMCINOL ONE CREAM active Ryder Moeller RN FLUTICASONE PROPIONATE 50 MCG/ACT NASAL SUSPENSION active Ryder Moeller RN BACLOFEN 20 MG ORAL TABLET active THREE TIMES DAILY Ryder Meoller RN OXAPROZIN 600 MG ORAL TABLET active DAILY Ryder Moeller RN WAL-ZYR 10 MG ORAL TABLET active daily Ryder Moeller RN ATORVASTATIN CALCIUM 10 MG ORAL TABLET active daily Ryder Moeller RN ASPIRIN 81 MG ORAL TABLET active ONE TAB. DAILY Ryder Moeller RN LEVOTHYROXINE SODIUM 200 MCG ORAL TABLET active one tab daily Ryder Moeller RN LISINOPRIL 40 MG ORAL TABLET active ONE TAB. DAILY Ryder Moeller RN SOCIAL HISTORY Date Observation Value Provider social history reviewed E&M reviewed Ryder Moeller RN drug use no Ryder Moeller RN passive cigarette smoke exposure no Ryder Moeller RN social history E&M E thnicity: Ryder Moeller RN caffeine use, average drinks per day yes Ryder Moeller RN smoking status never smoker Ryder Moeller RN social history reviewed E&M reviewed Ryder Moeller RN MENTAL STATUS Date Observation Value Provider assessment of judgme nt and insight E&M Alert and oriented to time, place and person. Mood and affect are normal. Ryder Moeller RN assessment of judgme nt and insight E&M Alert and oriented to time, place and person. Mood and affect are normal. Ryder Moeller RN INSURANCE PROVIDERS Payer name Policy type / Coverage type [place] red [employer] party ID BLUE PREFERRED HMO Blue [facility] [id number] TREATMENT PLAN Date Name Holter Monitor 24 Hr Stress Test - Nuclea r Complete Echo
--- OUTSIDE RECORDS SUMMARY | 2024-06-18 17:29 | XMS_ITS | Data Portability ---
Author Organization [facility] [employer], Main Office Address [address] [place] [address] Assessment No assessment recorded. Plan of Treatment Reminders Order Date Submit Date Provider Last Modified By Organization Details Last Modified Time Details Appointments None recorded. Lab lipase, serum or plasma 2022 023 [email or web address] 11 vivio [facility], [address], [place], [address], 3 11:26:14 amylase, serum or plasma 2022 023 atolliver 11 vivio [facility], [address], [place], [address], 3 11:26:14 CBC w/ auto diff 2022 023 [email or web address] 11 vivio [facility], [address], [place], [address], 3 11:26:14 H. pylori, fingerstick 2022 023 [facility] 200 [facility] [address] Young, [place], [address], 3 11:54:28 TSH + free T4, serum 2022 023 [email or web address] 11 vivio [facility], [address], [place], [address], 3 11:26:15 CMP, serum or plasma 2022 023 [email or web address] 11 [employer], [address], [place], [address], 3 11:26:14 lipid panel, serum 2022 023 [email or web address] 11 [employer] [facility], [address], [place], [address], 3 11:26:14 CK (creatine kinase), total, serum 2022 023 [email or web address] 11 [employer] [facility] [facility], [address], Omar Desouza, [place], [address], 3 11:26:15 Referral None recorded. Procedures None recorded. Surgeries None recorded. Imaging MAMMO, screening, bilateral [address] (Imaging), [address] [place] [address] [address], [place], [address], 3 09:03:03 Medication Orders ondansetron 4 mg disintegrat ing tablet 2022 023 ANDERSON [facility], [address], [place], [place], [id number], 3 11:55:13 esomeprazol e magnesium 40 mg capsule,del ayed release 2022 023 [place] 200 [facility], [address], [place], [place], [id number], 3 11:54:26 Patient TargetsNo targets recorded. Patient Instructions Encounter Date Encounter Id Patient Instructions Last Modified By Organization Details Last Modified Time 02/22/2023 [id number] avoid the foods that aggravate this. Go to ED if not improving [id number] Not available 02/26/2023 10:05:24 Reason for Referral None Reported. Results Created Date Observation Date Name Description Value Unit Range Abnormal Flag Note LastModifiedBy Organization Detail LastModifiedTime 07/07/19 22 07/07/2021 COMPR EHENS RAFY METAB OLIC PANEL glucose 81 mg/dL 65-99 normal Fasti ng refer ence inter laron Not Available [address] [address] [place], [address], 07/07/2021 03:17:57 07/07/19 22 07/07/2021 COMPR EHENS RAFY METAB OLIC PANEL urea nitrogen (BUN) 17 mg/dL 7-25 normal Not Available [address], [address], 07/07/2021 03:17:57 07/07/19 22 07/07/2021 COMPR EHENS RAFY METAB OLIC PANEL creatinine 0.62 mg/dL 0.60-0 .93 normal For patie nts >49 years of age, the refer ence limit for Creat inine is appro ximat eugenio 13% highe r for peopl e ident ified as Afric an-Am forest n. Not Available [address] [address] [place], [address], 07/07/2021 03:17:57 07/07/19 22 07/07/2021 COMPR EHENS RAFY METAB OLIC PANEL eGFR non-afr. trinidadian 90 mL/mi n/1.7 3m2 > or = 60 normal Not Available [employer] [address] [address] [place], [address], 07/07/2021 03:17:57 07/07/19 22 07/07/2021 COMPR EHENS RAFY METAB OLIC PANEL eGFR 104 mL/mi n/1.7 3m2 > or = 60 normal Not Available [employer] [address] [address] [place], [address], 07/07/2021 03:17:57 07/07/19 22 07/07/2021 COMPR EHENS RAFY METAB OLIC PANEL BUN/creatini ne ratio not applic able (calc ) 6-22 Not Available [address], [address], 07/07/2021 03:17:57 07/07/19 22 07/07/2021 COMPR EHENS RAFY METAB OLIC PANEL sodium 144 mmol/ L 135-14 6 normal Not Available [address], [address], 07/07/2021 03:17:57 07/07/19 22 07/07/2021 COMPR EHENS RAFY METAB OLIC PANEL potassium 4.3 mmol/ L 3.5-5. 3 normal Not Available [address], [address], 07/07/2021 03:17:57 07/07/19 22 07/07/2021 COMPR EHENS RAFY METAB OLIC PANEL chloride 106 mmol/ L 98-110 normal Not Available [address], [address], 07/07/2021 03:17:57 07/07/19 22 07/07/2021 COMPR EHENS RAFY METAB OLIC PANEL carbon dioxide 31 mmol/ L 20-32 normal Not Available [address], [address], 07/07/2021 03:17:57 07/07/19 22 07/07/2021 COMPR EHENS RAFY METAB OLIC PANEL calcium 9.4 mg/dL 8.6-10 .4 normal Not Available [address], [address], 07/07/2021 03:17:57 07/07/19 22 07/07/2021 COMPR EHENS RAFY METAB OLIC PANEL protein, total 6.7 g/dL 6.1-8. 1 normal Not Available [address], [address], 07/07/2021 03:17:57 07/07/19 22 07/07/2021 COMPR EHENS RAFY METAB OLIC PANEL albumin 3.9 g/dL 3.6-5. 1 normal Not Available [address], [address], 07/07/2021 03:17:57 07/07/19 22 07/07/2021 COMPR EHENS RAFY METAB OLIC PANEL globulin 2.8 g/dL_ (calc ) 1.9-3. 7 normal Not Available [address], [address], 07/07/2021 03:17:57 07/07/19 22 07/07/2021 COMPR EHENS RAFY METAB OLIC PANEL albumin/glob ulin ratio 1.4 (calc ) 1.0-2. 5 normal Not Available [address], [address], 07/07/2021 03:17:57 07/07/19 22 07/07/2021 COMPR EHENS RAFY METAB OLIC PANEL bilirubin, total 0.5 mg/dL 0.2-1. 2 normal Not Available [address], [address], 07/07/2021 03:17:57 07/07/19 22 07/07/2021 COMPR EHENS RAFY METAB OLIC PANEL alkaline phosphatase 86 U/L 37-153 normal Not Available [address], [address], 07/07/2021 03:17:57 07/07/19 22 07/07/2021 COMPR EHENS RAFY METAB OLIC PANEL AST 17 U/L 10-35 normal Not Available [address], [address], 07/07/2021 03:17:57 07/07/19 22 07/07/2021 COMPR EHENS RAFY METAB OLIC PANEL ALT 20 U/L 6-29 normal Not Available [address] [address] [place], [address], 07/07/2021 03:17:57 07/07/19 22 07/07/2021 LIPID PANEL , STAND BARRY cholesterol, total 181 mg/dL <200 normal Not Available [address] [address] [place], [address], 07/07/2021 03:17:57 07/07/19 22 07/07/2021 LIPID PANEL , STAND BARRY HDL cholesterol 66 mg/dL > or = 50 normal Not Available [facility] [address] [address] [place], [address], 07/07/2021 03:17:57 07/07/19 22 07/07/2021 LIPID PANEL , STAND BARRY triglyceride s 121 mg/dL <150 normal Not Available [address] [address] [place], [address], 07/07/2021 03:17:57 07/07/1907/07/2021 LIPID PANEL , STAND BARRY LDL-choleste rol 93 mg/dL _(alexandra c) normal Refer ence range : <100 Karen able range <100 mg/dL for prima ry preve ntion ; <70 mg/dL for patie nts with CHD or diabe tic patie nts with > or = 2 CHD risk facto rs. LDL-C is now calcu lated using the Ana n-Hop kins calcu amy n, which is a valid ated novel metho d provi karyn simmons r accur acy than the Fried renetta equat ion in the estim ation of LDL-C . Ana iraheta SS et al. ENMANUEL. 2013; 310(1 9): 2061- 2068 (http ://ed ucati on.Qu Harish bagley tics. com/f aq/FA Q164) Not Available [facility] [address] [address] [place], [address], 07/07/2021 03:17:57 07/07/19 22 07/07/2021 LIPID PANEL , STAND BARRY chol/HDLC ratio 2.7 (calc ) <5.0 normal Not Available [facility] [address] [place], [address], 07/07/2021 03:17:57 07/07/19 22 07/07/2021 LIPID PANEL , STAND BARRY non HDL cholesterol 115 mg/dL _(alexandra c) <130 normal For patie nts with diabe edith plus 1 major ASCVD risk facto r, treat ing to a non-H DL-C goal of <100 mg/dL (LDL- C of <70 mg/dL ) is consi moreliad a thera peuti c optio n. Not Available [facility] [address] [address], [place], [address], 07/07/2021 03:17:57 02/23/20 23 02/22/2023 H. pylor i, stevee rstic k H PYLORI negati ve Not Available [facility] [address], [place], [address], 02/22/2023 11:41:00 04/05/19 24 04/05/2023 MAMMO , scree celine, bilat eral No observ ation record ed. [email or web address] [facility] [address], [place], [address], 04/24/2023 17:44:47 06/16/19 24 06/16/2023 XR, cervi alexandra spine , 2 or 3 view No observ ation record ed. [address] [facility] [address], [place], [address], 06/19/2023 10:51:55 06/16/19 24 06/16/2023 XR, thora cic spine , 3 view No observ ation record ed. [address] [facility] [address], [place], [address], 06/19/2023 10:51:34 06/16/19 24 06/16/2023 XR, lumba r spine , 2 view No observ ation record ed. [id number] [facility] [address], [place], [address], 06/19/2023 10:19:29 Result Notes None recorded. Problems Name Problem SNOMED Code Status Onset Date Resolution Date Notes Provider Name and Address Organization Details Recorded Time Achilles tendiniti s 07958541 Active Not Available [facility] 3 08:09:15 Disorder of shoulder 886181761 Active Not Available [facility] 3 08:09:15 On examinati on - lip swelling Active Not Available [facility] 3 08:09:15 Osteoarth ritis of knee 062650431 Active [facility] Available [facility] 3 08:09:16 Urinary symptoms 833237660 Active Not Available [facility] 3 08:09:16 Shoulder joint pain 602745074 Active Not Available [facility] 3 08:09:16 Loss of hair 807926891 Active Not Available [facility] 3 08:09:16 Low back pain 584485865 Active seeing pain management , they prescribe her Percocet EdSHEN Jones [address] [place] [address], [facility] [address], [place], [address] , [place] - [facility] 3 11:56:04 Orthostat ic hypotensi on 33754068 Active Not Available [facility] 3 08:09:16 Right upper quadrant pain 496062759 Active Not Available [facility] 3 08:09:16 Enthesopa thy of hip region 45910148 Active Not Available [facility] 3 08:09:16 Lesion of ulnar nerve 702174152 Active Not Available [facility] 3 08:09:16 Osteoarth ritis 634885517 Active Not Available [facility] 3 08:09:16 Visual impairmen t 888180383 Active Not Available [facility] 3 08:09:16 Dizziness 965704659 Active Not Available [facility] 3 08:09:16 Hypothyro idism 08253802 Active Not Available [facility] 3 08:09:16 Disorder of rotator cuff 306476487 Active Not Available [facility] 3 08:09:17 Ulcer of duodenum 63952001 Active Not Available [facility] 3 08:09:17 Hyperlipi demia 38341012 Active Not Available [facility] 3 08:09:17 Essential hypertens ion 76460950 Active Not Available [facility] 3 08:09:17 Degenerat ion of cervical intervert ebral disc 82987219 Active Not Available [facility] 3 08:09:17 Hemorrhoi ds 27521830 Active Not Available [facility] 3 08:09:17 Degenerat ion of intervert ebral disc 90526320 Active Not Available [facility] 3 08:09:17 Tinea corporis 02303761 Active Not Available [facility] 3 08:09:17 Acute conjuncti vitis 91579020 Active 2022 Janet Adame MD [address], [place], [address] , [employer] 3 12:48:08 Gastroeso phageal reflux disease 355550669 Active 2022 SHEN Minor [address], [place], [address] , [employer] 3 11:34:29 Nausea 566604739 Active 2022 SHEN Minor [address], [place], [address] , [employer] 3 11:53:46 Problem Notes None recorded. Procedures Surgical History Date Name Laterality Status Provider Name and Address Organization Details Recorded Time Tubal Ligation completed Not Available [facility] 05/25/2022 08:05:51 Rotator cuff surgery completed Not Available [facility] 05/25/2022 08:05:51 Tonsillectomy completed Not Available [facility] 05/25/2022 08:05:51 Imaging Results Imaging Date Name Status LastModified by Organiz ation Details LastModified Time 04/05/2023 MAMMO, screening, bilateral completed [email or web address] [place] [address] Imaging [address], [place], [address], 04/24/2023 17:44:47 06/16/2023 XR, cervical spine, 2 or 3 view completed [address], [address], 06/19/2023 10:51:55 06/16/2023 XR, thoracic spine, 3 view completed [address], [address], 06/19/2023 10:51:34 06/16/2023 XR, lumbar spine, 2 view completed [address], [address], 06/19/2023 10:19:29 Procedure Notes None recorded. Medical Equipment None Reported. Allergies Allergen ID Allergen Name Allergen Category Reaction Reaction Severity Criticality Documentation Date Start Date Code Code System Note Provider Name and Address Organization Details Recorded Time 39313 hydrocodo ne Not available other Not available Not available 05/25/2022 5489 RxNorm depre ssion Not Available [facility] 3 08:13:24 86354 diclofena c Not available diarrhea Not available Not available 05/25/2022 3355 RxNorm Not Available [facility] 3 08:13:24 Medications Name Sig Start Date Stop Date Status Note LastModified by Organization Details LastModified Time budesonide 32 mcg/actuati on nasal spray 12/08 completed Not Available Not Available Not Available fluconazole 100 mg tablet Take 1 tablet every day by oral route. active Not Available Not Available No t Available levothyroxi ne 175 mcg tablet active Not Available Not Available Not Available levothyroxi ne 137 mcg tablet active Not Available Not Available Not Available prednisone 10 mg tablet Take by oral route 3 pills daily x 3 days , 2pills daily for 3 days, 1 pill daily for 3 days then d/c active Not Available Not Available No t Available Anusol-HC 2.5 % rectal cream with applicator Insert 1 applicati on 3 times a day by rectal route. active Not Available Not Available No t Available albuterol sulfate 2.5 mg/3 mL (0.083 %) solution for nebulizatio n active Not Available Not Available Not Available atorvastati n 10 mg tablet TAKE ONE TABLET BY MOUTH ONCE DAILY active Not Available Not Available No t Available azithromyci n 250 mg tablet active Not Available Not Available Not Available valacyclovi r 1 gram tablet Take 2 tablets every 12 hours by oral route for 1 day. 09/14 completed Not Available Not Available Not Available hydrocodone 5 mg-acetamin ophen 325 mg tablet active Not Available Not Available No t Available DesOwen 0.05 % topical cream APPLY SPARINGLY AND RUB GENTLY INTO THE AFFECTED AREA(S) BY TOPICAL ROUTE 2 TIMES PER DAY 12/08 completed Not Available Not Available Not Available phenazopyri dine 200 mg tablet 10/02 completed Not Available Not Available Not Available [place] Thyroid 120 mg tablet active Not Available Not Available No t Available Zyrtec 10 mg tablet Take 1 tablet every day by oral route. 10/02 completed 03/28 tab Not Available Not Available Not Available valacyclovi r 500 mg tablet Take 1 Tablet (500 mg) by mouth daily. 2023 active Not Available Not Available Not Avai lable omeprazole 40 mg capsule,del ayed release 1 po daily active Not Available Not Available No t Available liothyronin e 5 mcg tablet TAKE ONE TABLET BY MOUTH ONCE DAILY active Not Available Not Available No t Available tramadol 50 mg tablet Take 1-2 TABLET EVERY 6 HOURS by oral route. 10/02 completed Not Available Not Available Not Available triamcinolo ne acetonide 0.1 % topical cream Apply 1 applicati on twice a day by topical route for 30 days. active Not Available Not Available No t Available baclofen 20 mg tablet 1 po TID active Not Available Not Available N ot Available trifluridin e 1 % eye drops 09/14 completed Not Available Not Available Not Available levothyroxi ne 100 mcg tablet Take 1 tablet every day by oral route. active Not Available Not Available No t Available oxycodone-a cetaminophe n 5 mg-325 mg tablet active Not Available Not Available No t Available prednisolon e acetate 1 % eye drops,suspe nsion active Not Available Not Available Not Available triamcinolo ne acetonide 0.025 % topical cream APPLY A THIN LAYER TO THE AFFECTED AREA(S) BY TOPICAL ROUTE 2 TIMES PER DAY active Not Available Not Available No t Available cephalexin 500 mg capsule Take 1 capsule twice a day by oral route for 7 days. 09/14 completed Not Available Not Available Not Available esomeprazol e magnesium 40 mg capsule,del ayed release Take 1 capsule every day by oral route before meals for 30 days. active Not Available Not Available No t Available levothyroxi ne 125 mcg tablet 09/14 completed Not Available Not Available Not Available neomycin-po lymyxin-dex ameth 3.5 mg/mL-10,00 0 unit/mL-0.1 % eye drops INSTILL 1 DROP INTO AFFECTED EYE(S) BY OPHTHALMI C ROUTE EVERY 3-4 HOURS active Not Available Not Available No t Available Cipro 500 mg tablet Take 1 tablet every 12 hours by oral route. 06/24 completed Not Available Not Available Not Available clotrimazol e-betametha sone 1 %-0.05 % topical cream APPLY TO THE AFFECTED AND SURROUNDI NG AREAS OF SKIN TWO TIMES A DAY (MORNING AND EVENING) FOR 2 WEEKS 09/14 completed Not Available Not Available Not Available lidocaine 5 % topical patch active Not Available Not Available Not Available Antivert 25 mg tablet Take 1 tablet 4 times a day by oral route for 30 days. 01/20 completed Not Available Not Available Not Available levothyroxi ne 150 mcg tablet Take 1 tablet every day by oral route. active Not Available Not Available No t Available gabapentin 300 mg capsule 10/02 completed Not Available Not Available Not Available diclofenac sodium 75 mg tablet,kojo yed release active Not Available Not Available Not Available hydrocortis one 2.5 % topical cream 12/08 completed Not Available Not Available Not Available codeine 10 mg-guaifene sin 100 mg/5 mL oral liquid active Not Available Not Available Not Available azelastine 137 mcg (0.1 %) nasal spray active Not Available Not Available Not Available oxaprozin 600 mg tablet 1 tab BID active Not Available Not Available No t Available methylpredn isolone 4 mg tablets in a dose pack Take by oral routeas directed 12/08 completed Not Available Not Available Not Available hydrocortis one 2.5 % topical ointment 10/02 completed Not Available Not Available Not Available lisinopril 40 mg tablet 1 po daily 12/08 completed Not Available Not Available Not Available ondansetron 4 mg disintegrat ing tablet Place 1 tablet 3 times a day by transling ual route as needed for 30 days. active Not Available Not Available No t Available cefdinir 300 mg capsule active Not Available Not Available Not Available losartan 100 mg tablet Take 1 Tablet (100 mg) by mouth daily. active Not Available Not Available No t Available fluticasone propionate 50 mcg/actuati on nasal spray,suspe nsion 2 sprays in each nostril daily 12/08 completed Not Available Not Available Not Available levothyroxi ne 112 mcg tablet active Not Available Not Available Not Available nabumetone 500 mg tablet active Not Available Not Available Not Available Tylenol 650 mg tablet,exte nded release Take 2 tablets every 8 hours by oral route. 12/08 completed Not Available Not Available Not Available [facility] Wort 300 mg tablet Take by oral route. 2013 active Not Available Not Available Not Avai lable Vigamox 0.5 % eye drops active Not Available Not Available Not Available nitrofurant oin monohydrate /macrocryst als 100 mg capsule 10/02 completed Not Available Not Available Not Available Nevanac 0.1 % eye drops,suspe nsion active Not Available Not Available Not Available magnesium 2015 active Not Available Not Available Not Avai lable melatonin 2013 active Not Available Not Available Not Avai lable Artificial Tears 06/24 completed Not Available Not Available Not Available Citracal plus D 2013 active Not Available Not Available Not Avai lable biotin 06/24 completed Not Available Not Available Not Available Colace once daily 06/24 completed Not Available Not Available Not Available ginkgo biloba 2013 active Not Available Not Available Not Avai lable Prilosec 2015 active Not Available Not Available Not Avai lable Mar Aspirin 81 mg daily 09/14 completed Not Available Not Available Not Available Centrum 2013 active Not Available Not Available Not Avai lable ProAir HFA 90 mcg/actuati on aerosol inhaler active Not Available Not Available Not Available levothyroxi ne 150 mcg capsule Take 1 capsule every day by oral route. 2012 active Not Available Not Available Not Avai lable B12 09/14 completed Not Available Not Available Not Available Afluria 2819-6349(P F) 45 mcg (15 mcg x 3)/0.5 mL intramuscul ar syringe active Not Available Not Available N ot Available Pennsaid 20 mg/gram/act uation (2 %) topical soln in metered-dos e pump APPLY 2 PUMPS TO THE AFFECTED AREA(S) TWICE A DAY FOR 30 DAYS 06/24 completed Not Available Not Available Not Available Afluria 4374-7871(P F) 45 mcg (15 mcg x 3)/0.5 mL intramuscul ar syringe active Not Available Not Available N ot Available Fluarix Quad 6670-7991 (PF) 60 mcg (15 mcg x 4)/0.5 mL IM syringe active Not Available Not Available N ot Available Fluarix Quad 4484-7244 (PF) 60 mcg (15 mcg x 4)/0.5 mL IM syringe 12/08 completed Not Available Not Available Not Available Xiidra 5 % eye drops in a dropperette active Not Available Not Available Not Available Afluria Quad 4928-9594 (PF) 60 mcg/0.5 mL intramuscul ar syringe 10/02 completed Not Available Not Available Not Available Flucelvax Quad 60 mcg (15 mcg x 4)/0.5 mL IM suspension 10/02 completed Not Available Not Available Not Available Vitals Date Recorded Body mass index (BMI) Body height Oxygen saturation Oxygen saturation in Arterial blood by Pulse oximetry Heart rate Body temperature Body weight Systolic blood pressure Diastolic blood pressure Provider Name and Address Organization Details Last Updated DateTime 2 34.2 kg/m2 162.56 cm 95 % 95 % 79 /min 98.1 [degF] 02072.8 8 g 138 mm[Hg] 80 mm[Hg] Not Available [facility] 3 08:07:50 Date Recorded Body height Body mass index (BMI) Body weight Body temperature Heart rate Oxygen saturation Oxygen saturation in Arterial blood by Pulse oximetry Systolic blood pressure Diastolic blood pressure Provider Name and Address Organization Details Last Updated DateTime 3 162.56 cm 29.7 kg/m2 27497.4 8 g 97.9 [degF] 64 /min 97 % 97 % 142 mm[Hg] 82 mm[Hg] SUZANNA Molina [place] - [facility] [employer] [facility] 3 14:53:31 Date Recorded Body height Body mass index (BMI) Body weight Body temperature Heart rate Oxygen saturation Oxygen saturation in Arterial blood by Pulse oximetry Systolic blood pressure Diastolic blood pressure Provider Name and Address Organization Details Last Updated DateTime 3 162.56 cm 27.8 kg/m2 96811.9 6 g 97.4 [degF] 85 /min 95 % 95 % 118 mm[Hg] 62 mm[Hg] Mary Delgado [place] Collect [facility] [employer] [facility] 3 11:19:41 Social History Question Answer Notes LastModified by [employer] Details LastModified Time Tobacco Smoking Status Never Smoker Not Available [facility] 05/25/2022 08:05:40 What Is Your Level Of Caffeine Consumption? Moderate [id number] Information not available 05/25/2022 What Type Of Diet Are You Following? GLUTENFREE [id number] Information not available 05/25/2022 Are You Following A Low Salt Diet? No [id number] Information not available 05/25/2022 Do You Use Any Illicit Or Recreational Drugs? No [id number] Information not available 05/25/2022 Do You Have Any Dietary Restrictions? Yes Gluten Sensitive [id number] Information not available 05/25/2022 Sex: Unknown Functional Status Question Answer Note LastModified by [employer] Details LastModified Time What is your exercise level? Occasional [id number] Information not available 05/25/2022 Mental Status None recorded. Family History Relationship Description Onset Age of this Age Resolved Age Notes LastModified by Organization Details LastModified Time Father No current problems or disability [id number] Not available 05/25/2022 08:05:52 Mother No current problems or disability [id number] Not available 05/25/2022 08:05:52 Medical History No medical history recorded. Gynecological HistoryNo gynecological history recorded. Obstetrics History GPAL:G 0 P 0 0 0 0 Past Encounters Encounter ID Performer Location Encounter Start Date Encounter Closed Date Diagnosis/Indication Diagnosis SNOMED-CT Code Diagnosis ICD10 Code Diagnosis Note [id number] [facility] [place] [address] [facility] [place] [address] [address] 06/24/2021 00:00:00 06/24/2021 19:56:49 [id number] Janet Adame MD [facility] [place] [address] [facility] [place] [address] 09/14/2022 14:41:19 09/14/2022 15:50:05 Adult health examination 624770509 Z00.00 Screening for malignant neoplasm of breast 976010414 Z12.39 [id number] SHEN Minor [facility] [place] [address] [facility] [place] [address] [address] 02/22/2023 11:09:54 02/22/2023 11:55:44 Gastroesophageal reflux disease 632460811 K21.9 Hyperlipidemia 37017726 E78.5 Hypothyroidism 00021345 E03.9 Nausea 562516515 R11.0 Health Concerns Section Related Observation LastModified by Organization Detai ls LastModified Time None Recorded Concern Status LastModified by Organization Details LastModified Time None Recorded Advance Directives Directive None Recorded Payers Encounter Date Sequence Insurance Name Policy Number Policy Richardson Covered Member ID Richardson Member ID Guarantor Name 09/14/2022 1 [place]) 106 Telly Worthy [id number] Lawanda Worthy 02/22/2023 1 [place] 106 Telly Worthy [id number] Lawanda Worthy Notes Date Note Type Note Provider Name and Address Organization Details Recorded Time 09/14/2022 text/html Here today for annual physical. Eyes are bothering her and has gone to ophthomologist. Had herpes of the eye. Has spine issues being kept at bay. No BW needed. Not UTD with mammogram. Janet Adame MD [address], [facility] [address], [place], [address], [facility] Pick a Student [facility] 09/15/2022 06:38:21 02/22/2023 text/html nausea , vomiting (projectile). is keeping some things down. no fever , no bad food , no bad water SHEN Minor [address], [facility] [address], [place], [address], [facility] Collect [facility] Pick a Student [facility] 02/26/2023 10:05:37 OBGyn Episode No OBEpisode recorded.
== END 2024-06-18 14:53 | disposition home or self-care (01) ==
PROVIDERS: PCP Internal Medicine; Visit Provider Pain Medicine Interventional Pain Medicine
DX: M47.23 Other spondylosis with radiculopathy, cervicothoracic region (principal); M47.24 Other spondylosis with radiculopathy, thoracic region; M47.25 Other spondylosis with radiculopathy, thoracolumbar region; M47.22 Other spondylosis with radiculopathy, cervical region; M47.26 Other spondylosis with radiculopathy, lumbar region
CPT/HCPCS: 72040; 72072; 72100

== ENCOUNTER 2024-11-14 07:31 | Inpatient (IN) | payer MEDICARE, BC, SELFPAY ==
[2024-11-14] VITALS (23 sets, daily range): BP systolic 150–185; BP diastolic 62–83; PULSE 64–78; RESP 16–18; TEMP 36.6–37; O2SAT 94–99; BMI 29.9
--- NOTE | ~2024-11-14 | CT_ITS ---
EXAM: CT abdomen pelvis w con - 11/14/2024 8:35 CDT History: 74 years old Female with upper abdominal pain TECHNIQUE: Multidetector CT of the abdomen and pelvis with intravenous contrast. Coronal and sagittal reformats were also provided for review. Automatic exposure control was used for this study. CONTRAST: 100 cc of Optiray 350 was used for this study. COMPARISON: None Available. FINDINGS: VISUALIZED CHEST: Mild dependent changes. ABDOMEN and PELVIS: LIVER: Within normal limits. GALLBLADDER: Cholelithiasis. BILE DUCTS: No dilatation. SPLEEN: Within normal limits. PANCREAS: Within normal limits. ADRENAL GLANDS: Within normal limits. KIDNEYS and URETERS: 5 mm calculus in right kidney. Mild hydroureteronephrosis without obstructive calculus. Multiple bilateral subcentimeter hypodensities, too small to accurately characterize. 1.1 cm mass in left kidney, incompletely evaluated on current examination. URINARY BLADDER: Within normal limits. STOMACH and BOWEL: Diffuse wall thickening, mucosal hyperenhancement and surrounding fat stranding around the stomach, duodenum, proximal jejunum and splenic flexure of the colon. Findings are concerning for gastroenteritis / enterocolitis. Colonic diverticulosis without acute diverticulitis. REPRODUCTIVE ORGANS: Within normal limits. MESENTERY/PERITONEAL CAVITY: No free fluid or pneumoperitoneum. LYMPH NODES: No abdominal or pelvic lymphadenopathy. ABDOMINAL WALL: Within normal limits. VASCULATURE: Within normal limits. MUSCULOSKELETAL: Multilevel degenerative changes of the spine.. Grade 1 anterolisthesis of L4 on L5, likely degenerative. IMPRESSION: 1. Diffuse wall thickening and surrounding fat stranding around the stomach, duodenum and proximal jejunum. Findings are concerning for gastroenteritis. 2. 5 mm calculus in right kidney. Mild hydroureteronephrosis without obstructive calculus. 3. 1.1 cm mass in left kidney, incompletely evaluated on current examination. Correlate with prior imaging if available to document stability otherwise renal mass protocol MRI or CT is recommended for further evaluation. Reviewed, dictated and finalized at location A. IMPRESSION: 1. Diffuse wall thickening and surrounding fat stranding around the stomach, d uodenum and proximal jejunum. Findings are concerning for gastroenteritis. 2. 5 mm calculus in right kidney. Mild hydroureteronephrosis without obstructi ve calculus. 3. 1.1 cm mass in left kidney, incompletely evaluated on current examination. Correlate with prior imaging if available to document stability otherwise renal mass protocol MRI or CT is recommended for further evaluation.
--- NOTE | ~2024-11-14 | US_ITS ---
US abdomen limited EXAMINATION: US Abdomen Complete INDICATION: Pancreatitis PROCEDURE: Realtime High Resolution abdomen ultrasound. COMPARISON: CT abdomen pelvis 11/14/2024 FINDINGS: Visualized pancreas is heterogeneous with a small amount of surrounding peripancreatic fluid. Visualized liver is unremarkable. Portal vein was not visualized. There are a few gallstones in the gallbladder. Right kidney measures 11.7 x 6.5 x 7.1 cm. There are multiple renal cysts, largest measures 1.8 cm. This study is limited due to patient imaging characteristics. Common duct measures 7 mm. Positive Mojica's sign according to the technologist. IMPRESSION: 1: Visualized pancreas is heterogeneous with a small amount of surrounding peripancreatic fluid. Findings are concerning for acute pancreatitis. Correlate clinically. Recommend follow-up to resolution. 2. Cholelithiasis. 3. Multiple right renal cysts. 4. Positive Mojica's sign according to the technologist was suggest the possibility of acute cholecystitis. Gallbladder wall is mildly thickened. If of concern, consider a HIDA scan. Reviewed, dictated and finalized at location Q. IMPRESSION: 1: Visualized pancreas is heterogeneous with a small amount of surrounding chris pancreatic fluid. Findings are concerning for acute pancreatitis. Correlate cli nically. Recommend follow-up to resolution. 2. Cholelithiasis. 3. Multiple right renal cysts. 4. Positive Mojica's sign according to the technologist was suggest the possibi lity of acute cholecystitis. Gallbladder wall is mildly thickened. If of concer n, consider a HIDA scan.
--- NOTE | ~2024-11-14 | XR_ITS ---
EXAMINATION: 11/17/2024 11:41 DATE: 11/17/2024 11:54 CDT INDICATION: Cholecystectomy, intraoperative cholangiogram TECHNIQUE: Intraoperative cholangiogram with a single contrast run(s) provided for review. FINDINGS: There is cannulation and contrast administration into the cystic duct remnant. There is no discrete filling defect in the common bile duct to suggest common bile duct stone. Contrast flows freely into the duodenum. IMPRESSION: 1. Patent cystic duct remnant and common bile duct, without common bile duct stone. Reviewed, dictated and finalized at location O. IMPRESSION: 1. Patent cystic duct remnant and common bile duct, without common bile duct s tone.
--- NOTE | 2024-11-14 07:38 | ED.ABDPAIN ---
HPI - Abdominal Pain General Chief Complaint: Abdominal Pain Stated Complaint: abdominal pain Time Seen by Provider: 11/14/24 07:38 Source: patient Mode of arrival: ambulatory Limitations: no limitations History of Present Illness HPI narrative: 74 years old white female came to the ED from home with her complaining of nausea, a lot of vomiting started yesterday noon associated with epigastric pain. She denies any fever or chills. She denies radiation of pain, unable to keep her home medication down. History of hypertension hyperlipidemia, hypothyroidism And peptic ulcer disease Does not smoke or drink or use drugs. Currently her main complaint is feeling thirsty Related Data Home Medications ?Medication ?Instructions ?Recorded ?Confirmed ?Last Taken ?Type baclofen 20 mg tablet 20 mg PO TID 09/01/20 11/14/24 Unknown History ascorbic acid (vitamin C) 500 mg 500 mg PO DAILY 09/07/21 11/14/24 Unknown History capsule calcium 500 mg (as 1 tablet PO DAILY 09/07/21 11/14/24 Unknown History carbonate)-vitamin D3 10 mcg (400 unit) tablet fluticasone propionate 50 1 spray intranasal DAILY PRN 09/07/21 11/14/24 Unknown History mcg/actuation nasal Allergy Symptoms spray,suspension (Allergy Relief (fluticasone)) magnesium 30 mg tablet 30 mg PO DAILY 09/07/21 11/14/24 Unknown History olopatadine 0.1 % eye drops 1 drp EACH EYE DAILY 09/07/21 11/14/24 Unknown History lifitegrast 5 % eye drops in a 1 drp EACH EYE BID 12/20/21 11/14/24 Unknown History dropperette (Xiidra) melatonin 10 mg capsule 10 mg PO QHS 09/12/22 11/14/24 Unknown History oxycodone-acetaminophen 5 mg-325 0.5 tablet PO DAILY PRN pain 06/07/24 11/14/24 Unknown History mg tablet (Percocet) escitalopram oxalate 5 mg tablet 2.5 mg PO DAILY 11/11/24 11/14/24 Unknown History (Lexapro) multivitamin (Daily Multi-Vitamin 1 tablet PO DAILY 11/11/24 11/14/24 Unknown History tablet) omeprazole 20 mg capsule,delayed 20 mg PO DAILY 11/11/24 11/14/24 Unknown History release lidocaine 5 % topical patch 1 patch topical Q24H 11/14/24 11/14/24 Unknown History Allergies Allergy/AdvReac Type Severity Reaction Status Date / Time diclofenac AdvReac Unknown unknown Verified 11/11/24 10:52 gluten AdvReac Unknown Unknown Verified 11/11/24 10:52 lactose AdvReac Unknown Unknown Verified 11/11/24 10:52 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 Graves disease Obesity Hypothyroidism, unspecified Rotator cuff dysfunction Ovary removal, prophylactic Surgical History Surgical History H/O radioactive iodine thyroid ablation Hx of tonsillectomy History of carpal tunnel release Family History Family History Other Diabetes mellitus Family history of alcoholism Social History Social History Smoking status: Never smoker Alcohol intake: current Alcohol use details: maybe 1 glass of wine per month Substance use: never Do You Feel Safe in your Home?: Yes Lack of Transportation: No Lack of Food: Never True Current Housing: I Have Housing Concerned About Future Housing: No Difficulty Paying Gas/Electric Bills: No Difficulty Paying for Meds: No Currently Unemployed: No Education: Associate Degree Difficulty w/ Childcare or Family Care: No Living arrangements: with family Spiritual care concerns: No Exam Narrative: General appearance: Well-developed, well-nourished Skin: Normal color Head: Normocephalic, nontraumatic Eyes: Clear conjunctiva ENT: dry oral cavity Neck: Supple, nontender Chest and respiratory: Airway patent, no respiratory distress, no accessory muscle use Heart: Regular rate/rhythm Abdomen: Soft, epigastric tenderness, no organomegaly, quiet bowel sounds Vascular: Normal peripheral pulses, normal capillary refill. Musculoskeletal: Normal range of motion, nontender back Neurologic: Alert and oriented ?3, CAPACITOR REPAIRER is normal as tested, no gross motor deficit Course Vital Signs Vital signs: Vital Signs Temperature 36.6 C 11/14/24 07:37 Pulse Rate 78 11/14/24 07:37 Respiratory Rate 18 11/14/24 07:37 Blood Pressure 185/79 H 11/14/24 07:37 Pulse Oximetry 97 11/14/24 07:37 Oxygen Delivery Room Air 11/14/24 07:37 Temperature 36.4 C 11/15/24 19:51 Pulse Rate 81 11/15/24 19:51 Respiratory Rate 16 11/15/24 19:51 Blood Pressure 154/83 H 11/15/24 19:51 Pulse Oximetry 95 11/15/24 19:51 Oxygen Delivery Room Air 11/14/24 20:00 MDM - Abdominal Pain MDM Narrative Medical decision making narrative: patient presents with nausea and vomiting and epigastric pain Vital signs showing blood pressure 185/79 otherwise within normal limit Physical examination showing dry oral mouth and epigastric tenderness Differential diagnosis include pancreatitis, esophagitis, gastritis, peptic ulcer disease, cholecystitis blood workup today includes CBC, CMP, lipase showed WBC 17.5, BUN 21, creatinine 0.6, lactic acid 3.2 total bilirubin 1.[address] abdomen and pelvis with IV contrast showed finding concerning for gastroenteritis,, 1.1 cm mass left kidney Diagnosis pancreatitis, gastroenteritis Admit to hospitalist Consult the GI Differential Diagnosis Differential diagnosis: Likely abdominal pain, constipation, diverticulitis, gastroenteritis, pancreatitis and small bowel obstruction Medical Records Attestation: I reviewed the patient's medical records. Lab Data Attestation: I reviewed the patient's lab results. 11/15/24 04:40 11/15/24 04:40 Labs: Lab Results 11/14/24 11/14/24 Range/Units 07:55 09:35 WBC 17.5 H (4.5-10.0) K/mm3 RBC 5.83 H (4.2-5.4) M/mm3 Hgb 17.2 H (12.0-15.0) g/dL Hct 52.6 H (37.0-47.0) % MCV 90.2 (80-100) fl MCH 29.5 (26-34) pg MCHC 32.7 (32-36) g/dl RDW 15.1 H (11.5-14.5) % Plt Count 274 (150-375) k/mm3 MPV 10.2 (7.4-10.4) fl Immature Gran % (Auto) 0.5 (0-0.5) % Neut % (Auto) 83.1 H (45.5-73.1) % Lymph % (Auto) 7.8 L (18.3-44.2) % Dare % (Auto) 8.3 (2.6-8.5) % Eos % (Auto) 0.1 (0-4.4) % Baso % (Auto) 0.2 (0.2-1.2) % Lymph # (Auto) 1.36 (0.9-3.2) K/mm3 Dare # (Auto) 1.5 H (0.1-0.6) K/mm3 Eos # (Auto) 0.0 (0-0.3) K/mm3 Baso # (Auto) 0.0 (0.0-0.1) K/mm3 Abs Immat Gran (auto) 0.08 H (0.00-0.031) K/mm3 Absolute Neuts (auto) 14.6 H (1.3-6.7) K/mm3 Absolute Nucleated RBC 0.000 (0.0-0.012) K/mm3 Nucleated RBC % 0.0 (0.0-0.2) % Sodium 138 (137-145) mmol/L Potassium 3.8 (3.4-5.0) mmol/L Chloride 105 (98-107) mmol/L Carbon Dioxide 23 (22-30) mmol/L Anion Gap 10 (4-12) mmol/L BUN 21 H (7-17) mg/dL Creatinine 0.60 L (0.7-1.0) mg/dL Estim Creat Clear Calc 63 ml/min Estimated GFR > 60 (59 - ) Glucose 179 H (65-110) mg/dL Lactic Acid 3.2 H (0.7-2.0) mmol/L Calcium 9.4 (8.4-10.2) mg/dL Total Bilirubin 1.5 H (0.2-1.3) mg/dL AST 41 H (14-36) U/L ALT 37 H (6-35) U/L Alkaline Phosphatase 71 (38-126) U/L Total Protein 7.5 (6.3-8.2) g/dL Albumin 4.3 (3.5-5.1) g/dL Lipase 3343 H (23-300) U/L Urine Color Yellow (Yellow) Urine Appearance Clear (Clear) Urine pH 7.0 (5.0-9.0) Ur Specific Dixon > 1.045 H (1.001-1.035) Urine Protein Negative (Negative) mg/dL Urine Glucose (UA) Negative (Negative) mg/dL Urine Ketones Negative (Negative) mg/dL Ur Blood (Man) 2+ H (Negative) Urine Nitrate Negative (Negative) Urine Bilirubin Negative (Negative) Urine Urobilinogen 0.2 (<2.0) mg/dL Leukocyte Esterase Rfl Negative (Negative) BROOKS/UL Urine RBC 11-20 H (0-2) /hpf Urine WBC 6-10 H (0-3) /hpf Ur Squamous Epith Cells None seen (Few) /hpf Urine Bacteria None seen /hpf Urine Casts 0-2 MANOJ Screen Pending Influenza A (RT-PCR) Negative (Negative) Influenza B (RT-PCR) Negative (Negative) RSV (RT-PCR) Negative (Negative) SARS-CoV-2 RNA (RT-PCR) Negative (Negative) Imaging Data Radiologist's impression: ITS Impressions Abdomen/Pelvis CT 11/14/24 08:53 IMPRESSION: 1. Diffuse wall thickening and surrounding fat stranding around the stomach, duodenum and proximal jejunum. Findings are concerning for gastroenteritis. 2. 5 mm calculus in right kidney. Mild hydroureteronephrosis without obstructive calculus. 3. 1.1 cm mass in left kidney, incompletely evaluated on current examination. Correlate with prior imaging if available to document stability otherwise renal mass protocol MRI or CT is recommended for further evaluation. Abdomen Ultrasound 11/14/24 15:35 IMPRESSION: 1: Visualized pancreas is heterogeneous with a small amount of surrounding peripancreatic fluid. Findings are concerning for acute pancreatitis. Correlate clinically. Recommend follow-up to resolution. 2. Cholelithiasis. 3. Multiple right renal cysts. 4. Positive Mojica's sign according to the technologist was suggest the possibility of acute cholecystitis. Gallbladder wall is mildly thickened. If of concern, consider a HIDA scan. Critical Care Time Critical Care Time Critical Care Time: Yes Total Critical Care Time: 30 Discharge Plan Discharge Clinical Impression: Acute pancreatitis Patient Disposition: Still a Patient Condition: Stable
[2024-11-14] MEDS: SODIUM CHLORIDE 0.9% IV 1,000 ML 999 ML IV CONT (07:48)
[2024-11-14 08:04] LABS: Hematocrit 52.6 % (37.0-47.0); Hemoglobin 17.2 g/dL (12.0-15.0); Immature Granulocyte Percent A 0.5 % (0-0.5); Lymphocytes Absolute Auto 1.36 K/mm3 (0.9-3.2); Mean Corpuscular HGB Conc 32.7 g/dl (32-36); Mean Corpuscular Hemoglobin 29.5 pg (26-34); Mean Corpuscular Volume 90.2 fl (80-100); Nucleated Red Blood Cells Absolute Auto 0.000 K/mm3 (0.0-0.012); Nucleated Red Blood Cells Perc 0.0 % (0.0-0.2); Platelet Count Result 274 k/mm3 (150-375); Red Blood Count 5.83 M/mm3 (4.2-5.4); White Blood Count 17.5 K/mm3 (4.5-10.0)
[2024-11-14] MEDS: MORPHINE SULFATE (*CRX) 4 MG/ML INJ IV PUSH (08:21)
[2024-11-14] MEDS: ONDANSETRON INJ 4 MG/2 ML VIAL 8 MG IV PUSH (08:21)
[2024-11-14 08:24] LABS: Alanine Aminotransferase 37 U/L (6-35); Albumin Level 4.3 g/dL (3.5-5.1); Alkaline Phosphatase 71 U/L (38-126); Anion Gap 10 mmol/L (4-12); Aspartate Amino Transferase 41 U/L (14-36); Bilirubin,Total 1.5 mg/dL (0.2-1.3); Blood Urea Nitrogen 21 mg/dL (7-17); Calcium 9.4 mg/dL (8.4-10.2); Carbon Dioxide 23 mmol/L (22-30); Chloride 105 mmol/L (98-107); Estimated CRCL calculation 63 ml/min; Estimated Glomerular Filt Rate > 60; Glucose 179 mg/dL (65-110); Potassium 3.8 mmol/L (3.4-5.0); Sodium 138 mmol/L (137-145); Total Protein 7.5 g/dL (6.3-8.2)
[2024-11-14 08:42] LABS: Lipase 3343 U/L (23-300)
--- OUTSIDE RECORDS SUMMARY | 2024-11-14 08:43 | XMS_ITS | Clinical Summary ---
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 Active liothyronine (CYTOMEL) 5 mcg Tablet Take 5 mcg by mouth daily. Active lisinopril (PRINIVIL) 40 mg tablet Take 40 mg by mouth daily. Active cetirizine (ZYRTEC) 10 mg tablet Take 10 mg by mouth daily. Active multivitamin,tx-ir on-ca-min (THERA-M) 27-0.4 mg Tablet Take 1 Tablet by mouth daily. Active calcium citrate-vitamin D3 (CITRACAL WITH VIT D) 200 mg calcium -250 unit Tablet Take by mouth. Active magnesium oxide 250 mg Tablet Take 250 mg by mouth. Active VITAMIN E, DL,TOCOPHERYL ACET, (VITAMIN E, DL,ACETATE,) 400 unit Capsule Take 400 Units by mouth daily. Active ascorbic acid (VITAMIN C) 1,000 mg Tablet Take 1,000 mg by mouth 2 times daily. Active docusate sodium (COLACE) 100 mg capsule Take 100 mg by mouth 2 times daily. Active fluticasone (FLONASE) 50 mcg/spray [place], Suspension Administer 2 Sprays in each nostril [...] 3 1:15 PM CDT 09/10/19 22 Active clotrimazole-betam ethasone (LOTRISONE) 1-0.05 % Cream APPLY TO THE [...] off. 60 Patch 1 3 11:12 AM UNION STEWARD 01/29/20 22 Active oxyCODONE-acetamin ophen (PERCOCET) 5-325 mg tablet Take 1 tablet by mouth once to twice daily as needed 40 Tablet 3 2:13 PM UNION STEWARD 04/22/19 23 Active trifluridine (VIROPTIC) 1 % solution Administer 1 Drop in right eye every 2 hours while awake. 7.5 mL 3 4:21 PM UNION STEWARD 04/29/19 23 Active valACYclovir (VALTREX) 1 gram tablet Take 1 tablet (1 gram) by mouth 3 times daily for 10 days. 30 Tablet 3 12:42 PM UNION STEWARD 04/29/19 23 Active valACYclovir (VALTREX) 500 mg tablet TAKE ONE TABLET BY MOUTH ONCE DAILY 30 Tablet 5 05/15/19 23 Active baclofen (LIORESAL) 20 mg tablet Take 1 Tablet (20 mg) by mouth every 8 hours as needed. 270 Tablet 1 3 5:40 PM UNION STEWARD 05/20/19 23 Active baclofen (LIORESAL) 20 mg tablet Take 1 Tablet (20 mg) by mouth every 8 hours as needed. 270 Tablet 05/28/19 23 Active oxyCODONE-acetamin ophen (PERCOCET) 5-325 mg tablet Take 1 Tablet by mouth 2 times daily as needed. (Do not refill until 07/04/22) 10 Tablet 3 4:27 PM CDT 06/24/19 23 Active baclofen (LIORESAL) 20 mg tablet Take 1 tablet by mouth 3 times daily as needed. 270 Tablet 3 12:38 PM CDT 08/02/19 23 Active oxyCODONE-acetamin ophen (PERCOCET) 5-325 mg tablet TAKE ONE TABLET BY MOUTH TWICE DAILY NEEDED. 40 Tablet 3 12:38 PM CDT 08/02/19 23 Active diclofenac sodium (Pennsaid) 20 mg/gram /actuation(2 %) solution in metered-dose pumpIndications:Pr imary osteoarthritis of both knees Apply 40 mg to affected area 2 times daily. 1 Each 1 08/09/19 23 Active neomycin-polymyxin -dexAMETHasone (MAXITROL) 3.5mg/mL-10,000 unit/mL-0.1 % suspension Administer 1 Drop into affected eye(s) every 3-4 hours. 5 mL 3 3:16 PM CDT 08/18/19 23 Active oxyCODONE-acetamin ophen (PERCOCET) 5-325 mg tablet Take 1 Tablet [...] daily. 90 Tablet 1 09/13/19 23 Active oxyCODONE-acetamin ophen (PERCOCET) 5-325 mg tablet Take 1 Tablet [...] BEFORE MEALS 30 Capsule 3 3:25 PM UNION STEWARD 02/23/20 23 Active esomeprazole (NexIUM) 40 mg Capsule, Delayed Release(E.C.) TAKE 1 CAPSULE BY MOUTH DAILY BEFORE MEALS 30 Capsule 6 02/23/20 23 Active ondansetron (ZOFRAN ODT) 4 mg Tablet, Rapid Dissolve DISSOLVE 1 TABLET BY MOUTH THREE TIMES DAILY NEEDED 30 Tablet 2 3 3:25 PM UNION STEWARD 02/23/20 23 Active baclofen (LIORESAL) 20 mg tablet Take 1 Tablet (20 mg) by mouth 3 times daily as needed. 270 Tablet 3 4:05 PM UNION STEWARD 02/25/20 23 Active oxyCODONE-acetamin ophen (PERCOCET) 5-325 mg tablet Take 1 Tablet by mouth 2 times daily as needed. 40 Tablet 3 10:55 AM UNION STEWARD 02/28/20 23 Active losartan (COZAAR) 100 mg tablet Take 1 Tablet (100 mg) by mouth daily. 90 Tablet 3 4 2:00 PM CDT 05/04/19 24 Active valACYclovir (VALTREX) 500 mg tablet Take 1 Tablet (500 mg) by mouth daily. 30 Tablet 5 4 11:21 AM CDT 06/26/19 24 Active oxyCODONE-acetamin ophen (PERCOCET) 5-325 mg tablet Take one tablet [...] MOUTH ONCE DAILY 90 Tablet 4 5 11:10 AM CDT 10/31/19 24 Active losartan (COZAAR) 100 mg tablet Take 1 Tablet (100 mg) by mouth daily. 90 Tablet 3 5 11:10 AM CDT 10/31/19 24 Active lifitegrast (Xiidra) 5 % Dropperette Instill one drop into both eyes twice a day 180 Each 4 5 11:29 AM CDT 11/01/19 24 Active Lidocaine 5 % [...] OFF FOR 12 HOURS. 60 Patch 1 5 3:00 PM CDT 12/29/19 24 Active lidocaine (LIDODERM) 5 % Adhesive Patch, Medicated Apply 1-2 Patches to affected area for 12 hours on, then 12 hours off as needed 60 Patch 1 5 1:12 PM UNION STEWARD 02/20/20 24 Active oxyCODONE-acetamin ophen (PERCOCET) 5-325 mg tablet Take 1 Tablet by mouth 2 times daily as needed. Max Daily Amount: 2 Tablets 40 Tablet 5 2:44 PM UNION STEWARD 05/08/19 25 Active levothyroxine 100 mcg tablet Take 1 Tablet (100 mcg) by mouth daily. 90 Tablet 1 5 11:25 AM CDT 05/29/19 25 Active lidocaine (LIDODERM) 5 % Adhesive Patch, Medicated APPLY 1-2 PATCHES TO AFFECTED AREA DAILY NEEDED. LEAVE ON FOR 12 HOURS, REMOVE FOR 12 HOURS. 60 Patch 1 5 12:26 PM CDT 06/11/19 25 Active naloxone (Narcan) 4 mg/spray Ripon, Non-Aerosol Use one spray as directed, only as needed. 2 Each 1 08/09/19 25 Active liothyronine (CYTOMEL) 5 mcg Tablet Take 1 Tablet (5 mcg) by mouth daily. 90 Tablet 1 5 11:25 AM CDT 08/21/19 25 Active oxyCODONE-acetamin ophen (PERCOCET) 5-325 mg tablet Take 1 Tablet by mouth 1-2 times daily as needed. Max Daily Amount: 2 Tablets 30 Tablet 09/06/19 25 Active baclofen (LIORESAL) 20 mg tablet Take 1 Tablet (20 mg) by mouth 3 times daily as needed. 270 Tablet 5 12:50 PM CDT 09/07/19 25 Active lidocaine (LIDODERM) 5 % Adhesive Patch, Medicated Apply 1 - 2 patches once daily. (12 hours on, 12 hours off) 60 Patch 1 09/10/19 25 Active escitalopram oxalate (LEXAPRO) 5 mg tablet Take 1 Tablet (5 mg) by mouth daily. Do not take with Tracy's Wort. 90 Tablet 1 5 10:14 AM CDT 09/14/19 25 Active valACYclovir (VALTREX) 500 mg tablet Take 1 Tablet (500 mg) by mouth 1 time daily as needed. 90 Tablet 5 11:10 AM CDT 10/11/19 25 Active lidocaine (LIDODERM) 5 % Adhesive Patch, Medicated APPLY 1-2 PATCHES TO AFFECTED AREA DAILY NEEDED. LEAVE ON FOR 12 HOURS, REMOVE FOR 12 HOURS. 60 Patch 1 5 11:21 AM CDT 10/22/19 25 Active Hospital, Clinic, or Other Facility Administered Medication Ordered Dose Route Frequency Start Date End Date Status methylPREDNISolone acetate (DEPO-Medrol) 40 mg/mL injection 80 mgIndications:Troch anteric bursitis of left hip 80 mg Intra-arTICu ONE TIME ONLY 05/10/2016 Active Active Problems No known active problems Encounters Date Type Department Care Team Description 10/09/2024 External Device Data [facility] ABSTRACTION Provider, Abstract 10/08/2024 External Device Data [facility]STRACTION Provider, Abstract 09/17/2024 External Device Data [facility]STRACTION Provider, Abstract 2024 External Device Data [facility]STRACTION Provider, Abstract 08/20/2024 External Device Data [facility]CTION Provider, Abstract 08/15/2024 External Device Data [facility] ABSTRACTION Provider, Abstract 08/14/2024 External Device Data [facility] ABSTRACTION Provider, Abstract [...] 10:47 AM CDT Height 162.6 cm (5' 4) 09/02/2021 10:47 AM CDT Body Mass Index 32.61 09/02/2021 10:47 AM CDT Plan of Treatment Health Maintenance Due Date Last Done Comments DTAP/TDAP/TD VACCINES (1 - Tdap) 09/11/1967 PNEUMOCOCCAL VACCINE 50+ YEA RS (1 of 1 - PCV) 1998 OSTEOPOROSIS SCREENING 2013 RSV VACCINE (60+ or ) (1 - 1-dose 75+ series) 09/11/2023 INFLUENZA VACCINE (#1) 2024 , 02/04/2023, 12/27/2021 ZOSTER VACCINE Completed 07/04/2023, 04/21/2023 Insurance [facility] FEDERAL RX [facility] [employer] DO PLANS (INTERNAL) [facility] [employer] Commercial Care Teams Orchestrator Relationship Specialty Start Date End Date Janet Adame MD PCP - General Family Practice 08/11/15
[2024-11-14 09:51] LABS: Add Urine Microscopic? YES; Appearance Urine Clear (Clear); Glucose Urine UA Negative (Negative); Leukocyte Esterase Ur Negative LEU/UL (Negative); Nitrate Urine Negative (Negative); Non Pathogenic Casts 0-2; Specific Grav Ur > 1.045 (1.001-1.035)
--- NOTE | 2024-11-14 09:57 | PC.NURSE ---
per EDCatarina Soliz, patient given ice chips.
[2024-11-14 10:21] LABS: Influenza A QL RT-PCR Negative (Negative); Influenza B QL RT-PCR Negative (Negative); RSV RNA, RT-PCR Negative (Negative); SARS-CoV-2 RNA PCR Negative (Negative)
[2024-11-14] MEDS: HYDROmorphone HCL INJ (*CRX) 1 MG/ML SYR 0.5 MG IV PUSH (11:25)
[2024-11-14] MEDS: SODIUM CHLORIDE 0.9% IV 1,000 ML 250 ML IV CONT (11:26)
--- NOTE | 2024-11-14 11:37 | PM.IMHP ---
H&P: HPI History of Present Illness Date/Time: 11/14/24 11:37 Chief Complaint: abd pain Narrative: Patient with history of HLD, HTN, hypothyroidism, gastritis presented with nausea vomiting and abdominal pain since yesterday. Patient notes yesterday around noon she started to have nausea vomiting after eating food. She also started to have epigastric pressure 3-8/10 pain. Pain is constant. Getting better with rest. Getting worse with palpation. Does not radiate. Patient takes atenolol for chronic pain. Abdomen taking any NSAIDs. She drinks alcohol occasionally. Last drink was about 1 week ago. Reviewed previous chart. Patient received cortisone shot in her shoulder on 11/11/2024. in the Er vital sign was unremarkable except for blood pressure 178/99. Lab test WBC 17.5, hemoglobin 17.2. Mildly elevated liver enzyme. Lipase 3343. CT showed:Diffuse wall thickening and surrounding fat stranding around the stomach, duodenum and proximal jejunum. Findings are concerning for gastroenteritis. 2. 5 mm calculus in right kidney. Mild hydroureteronephrosis without obstructive calculus. 3. 1.1 cm mass in left kidney, incompletely evaluated on current examination. Correlate with prior imaging if available to document stability otherwise renal mass protocol MRI or CT is recommended for further evaluation. Treatment started with IV fluid. Patient was admitted for further management. 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 Graves disease Obesity Hypothyroidism, unspecified Rotator cuff dysfunction Ovary removal, prophylactic Surgical History Surgical History H/O radioactive iodine thyroid ablation Hx of tonsillectomy History of carpal tunnel release Family History Family History Other Diabetes mellitus Family history of alcoholism Social History Social History Smoking status: Never smoker Alcohol intake: current Alcohol use details: maybe 1 glass of wine per month Substance use: never Do You Feel Safe in your Home?: Yes Lack of Transportation: No Lack of Food: Never True Current Housing: I Have Housing Concerned About Future Housing: No Difficulty Paying Gas/Electric Bills: No Difficulty Paying for Meds: No Currently Unemployed: No Education: Associate Degree Difficulty w/ Childcare or Family Care: No Living arrangements: with family Spiritual care concerns: No Meds Home Medications and Allergies Home Medications ?Medication ?Instructions ?Recorded ?Confirmed ?Type baclofen 20 mg tablet 20 mg PO TID 09/01/20 11/14/24 History ascorbic acid (vitamin C) 500 mg 500 mg PO DAILY 09/07/21 11/14/24 History capsule calcium 500 mg (as 1 tablet PO DAILY 09/07/21 11/14/24 History carbonate)-vitamin D3 10 mcg (400 unit) tablet fluticasone propionate 50 1 spray intranasal DAILY PRN 09/07/21 11/14/24 History mcg/actuation nasal Allergy Symptoms spray,suspension (Allergy Relief (fluticasone)) magnesium 30 mg tablet 30 mg PO DAILY 09/07/21 11/14/24 History olopatadine 0.1 % eye drops 1 drp EACH EYE DAILY 09/07/21 11/14/24 History lifitegrast 5 % eye drops in a 1 drp EACH EYE BID 12/20/21 11/14/24 History dropperette (Xiidra) melatonin 10 mg capsule 10 mg PO QHS 09/12/22 11/14/24 History atorvastatin 10 mg tablet See Rx Instructions .Route 10/31/23 11/14/24 Rx .COMPLEX #90 tabs losartan 100 mg tablet 100 mg PO DAILY #90 tabs 10/31/23 11/14/24 Rx levothyroxine 100 mcg tablet 100 mcg PO DAILY #90 tabs 05/28/24 11/14/24 Rx oxycodone-acetaminophen 5 mg-325 0.5 tablet PO DAILY PRN pain 06/07/24 11/14/24 History mg tablet (Percocet) liothyronine 5 mcg tablet See Rx Instructions .Route 08/20/24 11/14/24 Rx .COMPLEX #90 tabs valacyclovir 500 mg tablet 500 mg PO DAILY PRN other #90 tabs 10/10/24 11/14/24 Rx escitalopram oxalate 5 mg tablet 2.5 mg PO DAILY 11/11/24 11/14/24 History (Lexapro) multivitamin (Daily Multi-Vitamin 1 tablet PO DAILY 11/11/24 11/14/24 History tablet) omeprazole 20 mg capsule,delayed 20 mg PO DAILY 11/11/24 11/14/24 History release lidocaine 5 % topical patch 1 patch topical Q24H 11/14/24 11/14/24 History Allergies Allergy/AdvReac Type Severity Reaction Status Date / Time diclofenac AdvReac Unknown unknown Verified 11/11/24 10:52 gluten AdvReac Unknown Unknown Verified 11/11/24 10:52 lactose AdvReac Unknown Unknown Verified 11/11/24 10:52 Vital Signs Vital Signs - 24 hr 11/14/24 07:37 11/14/24 08:00 11/14/24 08:04 Temperature 97.8 F Pulse Rate 78 Respiratory Rate 18 Blood Pressure 185/79 H 178/79 H Pulse Oximetry 97 99 96 Oxygen Delivery Room Air 11/14/24 08:15 11/14/24 08:16 11/14/24 08:30 Temperature Pulse Rate Respiratory Rate Blood Pressure 180/68 H Pulse Oximetry 95 96 96 Oxygen Delivery 11/14/24 08:31 11/14/24 08:46 11/14/24 08:47 Temperature Pulse Rate Respiratory Rate Blood Pressure 177/66 H 176/67 H Pulse Oximetry 95 96 97 Oxygen Delivery 11/14/24 09:00 11/14/24 09:01 11/14/24 09:33 Temperature Pulse Rate Respiratory Rate Blood Pressure 168/70 H 173/83 H Pulse Oximetry 95 94 98 Oxygen Delivery 11/14/24 09:34 11/14/24 09:45 11/14/24 09:46 Temperature Pulse Rate Respiratory Rate Blood Pressure 166/66 H Pulse Oximetry 97 95 95 Oxygen Delivery 11/14/24 09:47 11/14/24 10:05 11/14/24 10:22 Temperature Pulse Rate Respiratory Rate Blood Pressure Pulse Oximetry 95 95 95 Oxygen Delivery 11/14/24 10:30 11/14/24 10:31 Temperature Pulse Rate Respiratory Rate Blood Pressure 169/70 H Pulse Oximetry 96 95 Oxygen Delivery Exam Narrative: General appearance: Well-developed, well-nourished Skin: Normal color Head: Normocephalic, nontraumatic Eyes: Clear conjunctiva ENT: dry oral cavity Neck: Supple, nontender Chest and respiratory: Airway patent, no respiratory distress, no accessory muscle use Heart: Regular rate/rhythm Abdomen: Soft, epigastric tenderness, no organomegaly, quiet bowel sounds Vascular: Normal peripheral pulses, normal capillary refill. Musculoskeletal: Normal range of motion, nontender back Neurologic: Alert and oriented ?3, HOUSE SUPERINTENDENT is normal as tested, no gross motor deficit H&P: Results Labs Labs: Short CBC 11/14/24 Range/Units 07:55 WBC 17.5 H (4.5-10.0) K/mm3 Hgb 17.2 H (12.0-15.0) g/dL Hct 52.6 H (37.0-47.0) % Plt Count 274 (150-375) k/mm3 BMP 11/14/24 07:55 Sodium 138 Potassium 3.8 Chloride 105 Carbon Dioxide 23 BUN 21 H Creatinine 0.60 L Glucose 179 H Calcium 9.4 Liver Function 11/14/24 Range/Units 07:55 Total Bilirubin 1.5 H (0.2-1.3) mg/dL AST 41 H (14-36) U/L ALT 37 H (6-35) U/L Alkaline Phosphatase 71 (38-126) U/L Albumin 4.3 (3.5-5.1) g/dL Urine 11/14/24 Range/Units 09:35 Urine Color Yellow (Yellow) Urine Appearance Clear (Clear) Urine pH 7.0 (5.0-9.0) Ur Specific [place] > 1.045 H (1.001-1.035) Urine Protein Negative (Negative) mg/dL Urine Glucose (UA) Negative (Negative) mg/dL Assessment and Plan Assessment and plan (1) Pre-diabetes: Code(s): R73.03 - Prediabetes Status: Acute (2) Alcohol use: Code(s): F10.90 - Alcohol use, unspecified, uncomplicated Status: Acute (3) Anxiety with depression: Code(s): F41.8 - Other specified anxiety disorders Status: Acute (4) Rotator cuff tear arthropathy of both shoulders: Code(s): M75.101 - Unspecified rotator cuff tear or rupture of right shoulder, not specified as traumatic; M12.811 - Other specific arthropathies, not elsewhere classified, right shoulder; M12.812 - Other specific arthropathies, not elsewhere classified, left shoulder; M75.102 - Unspecified rotator cuff tear or rupture of left shoulder, not specified as traumatic Status: Acute (5) Hypertension: Qualifiers: Hypertension type: unspecified Qualified Code(s): I10 - Essential (primary) hypertension Code(s): I10 - Essential (primary) hypertension Status: Acute (6) Obesity: Code(s): E66.9 - Obesity, unspecified Status: Acute (7) Hypothyroidism, unspecified: Code(s): E03.9 - Hypothyroidism, unspecified Status: Acute (8) Pancreatitis: Code(s): K85.90 - Acute pancreatitis without necrosis or infection, unspecified Status: Acute Plan abd pain, nausea vomiting Possible secondary to pancreatitis versus gastritis Elevated liver enzyme Elevated lipase. Continue IV fluid, pain medication Will get liver ultrasound NPO for now. IV PPI Continue monitor ? Sepsis Leukocytosis, elevated lactic acid lactic acid improved will start Rocephin and flagyl. monitor for now Hypothyroidism Levothyroxine HTN losartan kidney mass Found on CT. MRI as outpatient
[2024-11-14] MEDS: cefTRIAXone 2 GM in SODIUM CHLORIDE 0.9% IV 100 ML 200 ML IVPB (12:52)
[2024-11-14] MEDS: PANTOPRAZOLE SODIUM IV 40 MG VIAL IV PUSH ×2 (12:53→21:01)
[2024-11-14] MEDS: metroNIDAZOLE 500 MG/ISO 100ML 500 MG/100 ML BAG 100 MG IVPB ×2 (13:59→21:01)
[2024-11-14] MEDS: SODIUM CHLORIDE 0.9% IV 1,000 ML 150 ML IV CONT (19:40)
[2024-11-14] MEDS: MORPHINE SULFATE (*CRX) 2 MG/ML INJ IV PUSH (19:41)
[2024-11-14] MEDS: ONDANSETRON INJ 4 MG/2 ML VIAL IV PUSH (19:41)
[2024-11-15] MEDS: ONDANSETRON INJ 4 MG/2 ML VIAL IV PUSH ×4 (00:47→20:26)
[2024-11-15] MEDS: MORPHINE SULFATE (*CRX) 2 MG/ML INJ IV PUSH ×4 (00:47→20:26)
[2024-11-15] MEDS: SODIUM CHLORIDE 0.9% IV 1,000 ML 150 ML IV CONT ×2 (04:05→13:21)
[2024-11-15 04:34] VITALS: BP 144/64; PULSE 65; RESP 16; TEMP 36.5; O2SAT 93
[2024-11-15 05:03] LABS: Hematocrit 42.7 % (37.0-47.0); Hemoglobin 14.1 g/dL (12.0-15.0); Mean Corpuscular HGB Conc 33.0 g/dl (32-36); Mean Corpuscular Hemoglobin 30.1 pg (26-34); Mean Corpuscular Volume 91.0 fl (80-100); Platelet Count Result 182 k/mm3 (150-375); Red Blood Count 4.69 M/mm3 (4.2-5.4); White Blood Count 20.9 K/mm3 (4.5-10.0)
[2024-11-15 05:24] LABS: Alanine Aminotransferase 19 U/L (6-35); Albumin Level 3.1 g/dL (3.5-5.1); Alkaline Phosphatase 59 U/L (38-126); Anion Gap 4 mmol/L (4-12); Aspartate Amino Transferase 36 U/L (14-36); Bilirubin,Total 1.7 mg/dL (0.2-1.3); Blood Urea Nitrogen 14 mg/dL (7-17); Calcium 8.3 mg/dL (8.4-10.2); Carbon Dioxide 24 mmol/L (22-30); Chloride 108 mmol/L (98-107); Estimated CRCL calculation 75 ml/min; Estimated Glomerular Filt Rate > 60; Glucose 94 mg/dL (65-110); Potassium 3.3 mmol/L (3.4-5.0); Sodium 136 mmol/L (137-145); Total Protein 5.8 g/dL (6.3-8.2)
[2024-11-15] MEDS: metroNIDAZOLE 500 MG/ISO 100ML 500 MG/100 ML BAG 100 MG IVPB ×2 (05:25→13:22)
--- NOTE | 2024-11-15 07:54 | WPDGICN ---
Assessment and Plan Assessment and plan (1) Pancreatitis: Qualifiers: Acute pancreatitis complication: no infection or necrosis Chronicity: acute Pancreatitis type: unspecified pancreatitis type Qualified Code(s): K85.90 - Acute pancreatitis without necrosis or infection, unspecified Code(s): K85.90 - Acute pancreatitis without necrosis or infection, unspecified Status: Acute (2) Nausea and vomiting: Qualifiers: Vomiting type: bilious vomiting Qualified Code(s): R11.14 - Bilious vomiting Code(s): R11.2 - Nausea with vomiting, unspecified Status: Acute (3) Cholelithiasis: Qualifiers: Biliary obstruction: without biliary obstruction Cholecystitis acuity: acute Cholecystitis presence: with cholecystitis Cholelithiasis location: gallbladder Qualified Code(s): K80.00 - Calculus of gallbladder with acute cholecystitis without obstruction Code(s): K80.20 - Calculus of gallbladder without cholecystitis without obstruction Status: Acute (4) Abnormal digestive system diagnostic imaging: Code(s): R93.3 - Abnormal findings on diagnostic imaging of other parts of digestive tract Status: Acute (5) Gastroenteritis: Code(s): K52.9 - Noninfective gastroenteritis and colitis, unspecified Status: Acute Plan 1. Acute pancreatitis/nausea/vomiting/BUQ pain: Ultrasound visualized pancreas is heterogeneous with a small amount of surrounding peripancreatic fluid. Findings are concerning for acute pancreatitis. Pancreas normal on CT. Lipase on admission 3343 and LFT's are normal. Triglycerides were normal at 58 on 08/13/2024, levels weren't rechecked this admission. Patient denies prior Hx of pancreatitis. Nausea and vomiting has improved since admission. She is still having upper abdominal pain with palpation that she describes as a constant dull pain. She had had no oral intake since Monday. Labs ordered to r/o autoimmune pancreatitis trial clear liquid diet and advance if tolerated Continue supportive care with pain management and antiemetics if change in clinical presentation may also consider MRCP 2. Cholelithiasis/possible acute cholecystitis: US findings include positive Mojica's sign according to the technologist was suggest the possibility of acute cholecystitis. Gallbladder wall is mildly thickened. No mention of biliary ductal dilation. Elevated lipase at 3343 and normal LFT's. further gallbladder work up can be done outpatient 3. Abnormal imaging digestive-gastroenteritis: CT shows diffuse wall thickening and surrounding fat stranding around the stomach, duodenum and proximal jejunum. Findings are concerning for gastroenteritis. CT findings may be secondary to acute pancreatitis with reactive gastroduodenitis plan for EGD Monday if patient remains asymptomatic Thank you very much for allowing me to share in the care of this very nice patient. This report may have been done utilizing a voice recognition system. Attempts have been made to correct errors. However, there may be uncorrected grammatical, spelling, and recognition errors present. GI Consult Note Consult date/time: 11/15/24 07:54 Reason for consult: Acute pancreatitis HPI: Lawanda Worthy is a 74 year old female with PMSH of hypothyroidism, Graves disease, H/O radioactive iodine thyroid ablation, HTN and HLD. She presented to the ER yesterday with complaints of nausea and vomiting. GI has been consulted for acute pancreatitis. During today's visit the patient admits to bilateral upper quadrant abdominal pain that she describes as a dull constant pain that has been occurring since Monday. She states that the pain increases with palpation especially during her recent abdominal ultrasound. Nausea and vomiting has resolved since admission. Denies abdominal bloating, odynophagia, dysphagia, reflux, regurgitation, early satiety, appetite or weight loss. Prior to admission she was having daily bowel movements that were formed and non Urgent. Denies diarrhea, constipation, hematochezia, or melena. Denies any NSAID, aspirin, or anticoagulant use. She states that she only drinks on an occasional basis at which time she will have a few shots of Tayler's. Denies any tobacco or marijuana use. Family history negative for CRC or IBD. ENDOSCOPY HISTORY: EGD: 10/07/[address] Harris Findings: The esophagus was examined and no abnormalities were seen. The gastroesophageal junction (upper level of gastric folds) was located 40cm from the incisors. The stomach was examined and no abnormalities were seen. The duodenum was examined and no abnormalities were seen. 50 bahamian Jack dilation was performed. Previously noted duodenal ulcer was healed. Bx results: [ ] EGD: 07/22/[address] Obey for epigastric pain Findings: The esophagus was examined no abnormalities were seen The GE junction was located 39 cm from the incisors In the antrum, moderate chronic patchy gastritis seen. The gastritis had the following findings: Erythematous. There was no mucosal bleeding. A single superficial chronic benign appearing 6 mm ulcer was visualized. There was no signs of bleeding from ulcer In the duodenal bulb, a benign-appearing, intrinsic stenosis was noted. The stenosis was not transverse. A single crater chronic benign-appearing 40 mm ulcer was visualized. There was no signs of bleeding from ulcer. COLONOSCOPY: 01/06/[address] Del Rosario for CRC screening Findings: Multiple diverticula were present in the sigmoid colon without active bleeding No repeat colonoscopy recommended LABS AND STOOL STUDIES: Labs 11/15/2024: WBC 21, Hgb 14, Hct 43, MCV 91, platelets 182 Sodium 136, potassium 3.3, BUN 14, creatinine 0.50, GFR >60, calcium 8.3 Total bilirubin 1.7, AST 36, ALT 19, Alkaline Phos 59, albumin 3.1 Labs 11/14/2024: WBC 18, Hgb 17, Hct 53, MCV 90, platelets 274 Sodium 138, potassium 3.8, BUN 21, creatinine 0.60, GFR >60, calcium 9.4, lactic acid 3.2 Total bilirubin 1.5, AST 41, ALT 37, Alkaline Phos 71, albumin 4.3, lipase 3343 IMAGING: CT abd/pelvis w/contrast 11/14/2024: IMPRESSION: 1. Diffuse wall thickening and surrounding fat stranding around the stomach, duodenum and proximal jejunum. Findings are concerning for gastroenteritis. 2. 5 mm calculus in right kidney. Mild hydroureteronephrosis without obstructive calculus. 3. 1.1 cm mass in left kidney, incompletely evaluated on current examination. Correlate with prior imaging if available to document stability otherwise renal mass protocol MRI or CT is recommended for further evaluation. Abdominal Ultrasound 11/14/2024: IMPRESSION: 1: Visualized pancreas is heterogeneous with a small amount of surrounding peripancreatic fluid. Findings are concerning for acute pancreatitis. Correlate clinically. Recommend follow-up to resolution. 2. Cholelithiasis. 3. Multiple right renal cysts. 4. Positive Mojica's sign according to the technologist was suggest the possibility of acute cholecystitis. Gallbladder wall is mildly thickened. If of concern, consider a HIDA scan. Review of Systems Constitutional: Constitutional: Reports as per HPI ENT: Reports as per HPI Cardiovascular: Cardiovascular: Reports as per HPI, Denies chest pain and Denies dyspnea Respiratory: Respiratory: Denies cough and Denies dyspnea Gastrointestinal: Gastrointestinal: Reports as per HPI Musculoskeletal: Musculoskeletal: Reports as per HPI Integumentary/Breasts: Skin/Breast: Reports as per HPI Psychiatric: Psychiatric: Reports as per HPI Endocrine: Endocrine: Reports no additional endocrine complaints Hematologic/Lymphatic: Hematologic/Lymphatic: Reports no additional hematologic/lymphatic complaints [facility] Past Medical History Medical History 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 Graves disease Obesity Hypothyroidism, unspecified Rotator cuff dysfunction Ovary removal, prophylactic Surgical History Surgical History H/O radioactive iodine thyroid ablation Hx of tonsillectomy History of carpal tunnel release Family History Family History Other Diabetes mellitus Family history of alcoholism Social History Social History Smoking status: Never smoker Alcohol intake: current Alcohol use details: maybe 1 glass of wine per month Substance use: never Do You Feel Safe in your Home?: Yes Lack of Transportation: No Lack of Food: Never True Current Housing: I Have Housing Concerned About Future Housing: No Difficulty Paying Gas/Electric Bills: No Difficulty Paying for Meds: No Currently Unemployed: No Education: Associate Degree Difficulty w/ Childcare or Family Care: No Living arrangements: with family Spiritual care concerns: No Meds Home Medications and Allergies Home Medications ?Medication ?Instructions ?Recorded ?Confirmed ?Type baclofen 20 mg tablet 20 mg PO TID 09/01/20 11/14/24 History ascorbic acid (vitamin C) 500 mg 500 mg PO DAILY 09/07/21 11/14/24 History capsule calcium 500 mg (as 1 tablet PO DAILY 09/07/21 11/14/24 History carbonate)-vitamin D3 10 mcg (400 unit) tablet fluticasone propionate 50 1 spray intranasal DAILY PRN 09/07/21 11/14/24 History mcg/actuation nasal Allergy Symptoms spray,suspension (Allergy Relief (fluticasone)) magnesium 30 mg tablet 30 mg PO DAILY 09/07/21 11/14/24 History olopatadine 0.1 % eye drops 1 drp EACH EYE DAILY 09/07/21 11/14/24 History lifitegrast 5 % eye drops in a 1 drp EACH EYE BID 12/20/21 11/14/24 History dropperette (Xiidra) melatonin 10 mg capsule 10 mg PO QHS 09/12/22 11/14/24 History atorvastatin 10 mg tablet See Rx Instructions .Route 10/31/23 11/14/24 Rx .COMPLEX #90 tabs losartan 100 mg tablet 100 mg PO DAILY #90 tabs 10/31/23 11/14/24 Rx levothyroxine 100 mcg tablet 100 mcg PO DAILY #90 tabs 05/28/24 11/14/24 Rx oxycodone-acetaminophen 5 mg-325 0.5 tablet PO DAILY PRN pain 06/07/24 11/14/24 History mg tablet (Percocet) liothyronine 5 mcg tablet See Rx Instructions .Route 08/20/24 11/14/24 Rx .COMPLEX #90 tabs valacyclovir 500 mg tablet 500 mg PO DAILY PRN other #90 tabs 10/10/24 11/14/24 Rx escitalopram oxalate 5 mg tablet 2.5 mg PO DAILY 11/11/24 11/14/24 History (Lexapro) multivitamin (Daily Multi-Vitamin 1 tablet PO DAILY 11/11/24 11/14/24 History tablet) omeprazole 20 mg capsule,delayed 20 mg PO DAILY 11/11/24 11/14/24 History release lidocaine 5 % topical patch 1 patch topical Q24H 11/14/24 11/14/24 History Allergies Allergy/AdvReac Type Severity Reaction Status Date / Time diclofenac AdvReac Unknown unknown Verified 11/11/24 10:52 gluten AdvReac Unknown Unknown Verified 11/11/24 10:52 lactose AdvReac Unknown Unknown Verified 11/11/24 10:52 Vital Signs Vital Signs - 24 hr 11/14/24 08:00 11/14/24 08:04 11/14/24 08:15 Temperature Pulse Rate Respiratory Rate Blood Pressure 178/79 H Pulse Oximetry 99 96 95 Oxygen Delivery 11/14/24 08:16 11/14/24 08:30 11/14/24 08:31 Temperature Pulse Rate Respiratory Rate Blood Pressure 180/68 H 177/66 H Pulse Oximetry 96 96 95 Oxygen Delivery 11/14/24 08:46 11/14/24 08:47 11/14/24 09:00 Temperature Pulse Rate Respiratory Rate Blood Pressure 176/67 H Pulse Oximetry 96 97 95 Oxygen Delivery 11/14/24 09:01 11/14/24 09:33 11/14/24 09:34 Temperature Pulse Rate Respiratory Rate Blood Pressure 168/70 H 173/83 H Pulse Oximetry 94 98 97 Oxygen Delivery 11/14/24 09:45 11/14/24 09:46 11/14/24 09:47 Temperature Pulse Rate Respiratory Rate Blood Pressure 166/66 H Pulse Oximetry 95 95 95 Oxygen Delivery 11/14/24 10:05 11/14/24 10:22 11/14/24 10:30 Temperature Pulse Rate Respiratory Rate Blood Pressure Pulse Oximetry 95 95 96 Oxygen Delivery 11/14/24 10:31 11/14/24 14:00 11/14/24 14:18 Temperature 98.6 F Pulse Rate 64 Respiratory Rate 16 Blood Pressure 169/70 H 167/62 H Pulse Oximetry 95 95 Oxygen Delivery Room Air 11/14/24 20:00 11/14/24 22:21 11/15/24 04:34 Temperature 98.6 F 97.7 F Pulse Rate 64 64 65 Respiratory Rate 16 16 16 Blood Pressure 150/62 H 144/64 H Pulse Oximetry 95 95 93 Oxygen Delivery Room Air Exam Const: General: cooperative, healthy appearing, comfortable, no acute distress and well developed Orientation/consciousness: oriented to person, oriented to place, oriented to time and patient oriented x3 HENMT: Head: normal to inspection, normocephalic and atraumatic Mouth: Yes Normal oral and palatal mucosa present and Yes moist mucous membranes Eyes: General: appearance normal, both eyes and all related structures Conjunctivae: conjunctivae normal Sclera: sclerae normal Pupils: Equal, round and reactive pupils present Neck: Neck: normal visual inspection Chest: Chest palpation & inspection: normal inspection of the chest Resp: Effort & Inspection: normal respiratory effort and able to speak in complete sentences Auscultation: clear to auscultation bilaterally Cardio: Jugular venous distension: no JVD Rate: regular rate Rhythm: regular rhythm Heart sounds: S1 normal heart sound present and S2 normal heart sound present GI: GI Palp: Yes Soft to palpation, Yes Tenderness to palpation present (GI) (upper abdominal pain with palpation) and Yes No hepatosplenomegaly present Auscultation: normal bowel sounds Rectal Exam: deferred Skin: General skin exam: normal color and no rashes or lesions noted Neuro: General: oriented to person, oriented to place, oriented to time and patient oriented x3 Cranial nerves: Yes Equal, round and reactive pupils present Speech: normal speech Extrem: General: normal to inspection and no clubbing, cyanosis or edema Psych: Appearance: grossly normal and well kempt Affect: normal affect Results Labs 11/15/24 04:40 11/15/24 04:40 Labs: Short CBC 11/14/24 11/15/24 Range/Units 07:55 04:40 WBC 17.5 H 20.9 H (4.5-10.0) K/mm3 Hgb 17.2 H 14.1 D (12.0-15.0) g/dL Hct 52.6 H 42.7 (37.0-47.0) % Plt Count 274 182 (150-375) k/mm3 BMP 11/14/24 11/15/24 07:55 04:40 Sodium 138 136 L Potassium 3.8 3.3 L Chloride 105 108 H Carbon Dioxide 23 24 BUN 21 H 14 D Creatinine 0.60 L 0.50 L Glucose 179 H 94 Calcium 9.4 8.3 L Liver Function 11/14/24 11/15/24 Range/Units 07:55 04:40 Total Bilirubin 1.5 H 1.7 H (0.2-1.3) mg/dL AST 41 H 36 (14-36) U/L ALT 37 H 19 (6-35) U/L Alkaline Phosphatase 71 59 (38-126) U/L Albumin 4.3 3.1 L (3.5-5.1) g/dL Urine 11/14/24 Range/Units 09:35 Urine Color Yellow (Yellow) Urine Appearance Clear (Clear) Urine pH 7.0 (5.0-9.0) Ur Specific [place] > 1.045 H (1.001-1.035) Urine Protein Negative (Negative) mg/dL Urine Glucose (UA) Negative (Negative) mg/dL
[2024-11-15] MEDS: PANTOPRAZOLE SODIUM IV 40 MG VIAL IV PUSH (08:11)
[2024-11-15] MEDS: BACLOFEN 10 MG TABLET 20 MG PO ×2 (12:18→16:47)
[2024-11-15] MEDS: ATORVASTATIN 10 MG TABLET PO (12:18)
[2024-11-15] MEDS: cefTRIAXone 2 GM in SODIUM CHLORIDE 0.9% IV 100 ML 200 ML IVPB (12:19)
[2024-11-15 13:31] VITALS: BP 138/56; PULSE 70; RESP 14; TEMP 36.6; O2SAT 94
--- NOTE | 2024-11-15 15:29 | PM.IMPN ---
Progress Note: A&P Assessment and Plan (1) Pre-diabetes: Code(s): R73.03 - Prediabetes Status: Acute (2) Alcohol use: Code(s): F10.90 - Alcohol use, unspecified, uncomplicated Status: Acute (3) Anxiety with depression: Code(s): F41.8 - Other specified anxiety disorders Status: Acute (4) Rotator cuff tear arthropathy of both shoulders: Code(s): M75.101 - Unspecified rotator cuff tear or rupture of right shoulder, not specified as traumatic; M12.811 - Other specific arthropathies, not elsewhere classified, right shoulder; M12.812 - Other specific arthropathies, not elsewhere classified, left shoulder; M75.102 - Unspecified rotator cuff tear or rupture of left shoulder, not specified as traumatic Status: Acute (5) Hypertension: Qualifiers: Hypertension type: unspecified Qualified Code(s): I10 - Essential (primary) hypertension Code(s): I10 - Essential (primary) hypertension Status: Acute (6) Obesity: Code(s): E66.9 - Obesity, unspecified Status: Acute (7) Hypothyroidism, unspecified: Code(s): E03.9 - Hypothyroidism, unspecified Status: Acute (8) Pancreatitis: Qualifiers: Chronicity: acute Pancreatitis type: unspecified pancreatitis type Acute pancreatitis complication: no infection or necrosis Qualified Code(s): K85.90 - Acute pancreatitis without necrosis or infection, unspecified Code(s): K85.90 - Acute pancreatitis without necrosis or infection, unspecified Status: Acute Plan abd pain, nausea vomiting Possible secondary to pancreatitis versus gastritis Elevated liver enzyme Elevated lipase. Continue IV fluid, pain medication .Us concerning for acute cholecystitis. will get HIDA scan. GI and surgery team on board Continue monitor ? Sepsis Leukocytosis, elevated lactic acid lactic acid improved continue Rocephin and flagyl. monitor for now Hypothyroidism Levothyroxine HTN losartan kidney mass Found on CT. MRI as outpatient Subjective Date/time seen: 11/15/24 15:29 Interval history: per HPI: Patient with history of HLD, HTN, hypothyroidism, gastritis presented with nausea vomiting and abdominal pain since yesterday. Patient notes yesterday around noon she started to have nausea vomiting after eating food. She also started to have epigastric pressure 3-8/10 pain. Pain is constant. Getting better with rest. Getting worse with palpation. Does not radiate. Patient takes atenolol for chronic pain. Abdomen taking any NSAIDs. She drinks alcohol occasionally. Last drink was about 1 week ago. Reviewed previous chart. Patient received cortisone shot in her shoulder on 11/11/2024. in the Er vital sign was unremarkable except for blood pressure 178/99. Lab test WBC 17.5, hemoglobin 17.2. Mildly elevated liver enzyme. Lipase 3343. CT showed:Diffuse wall thickening and surrounding fat stranding around the stomach, duodenum and proximal jejunum. Findings are concerning for gastroenteritis. 2. 5 mm calculus in right kidney. Mild hydroureteronephrosis without obstructive calculus. 3. 1.1 cm mass in left kidney, incompletely evaluated on current examination. Correlate with prior imaging if available to document stability otherwise renal mass protocol MRI or CT is recommended for further evaluation. Treatment started with IV fluid. Patient was admitted for further management. patient was seen and examined at bedside . she is feeling better but still has abd pain.Us concerning for acute cholecystitis. will get HIDA scan. GI and surgery team onboard clear liquid diet and possible EGD on Monday if she stay in the hospital . Review of Systems Review of Systems: All systems reviewed & are unremarkable except as noted in HPI and below Exam Narrative: General appearance: Well-developed, well-nourished Skin: Normal color Head: Normocephalic, nontraumatic Eyes: Clear conjunctiva ENT: dry oral cavity Neck: Supple, nontender Chest and respiratory: Airway patent, no respiratory distress, no accessory muscle use Heart: Regular rate/rhythm Abdomen: Soft, epigastric tenderness, no organomegaly, quiet bowel sounds Vascular: Normal peripheral pulses, normal capillary refill. Musculoskeletal: Normal range of motion, nontender back Neurologic: Alert and oriented ?3, CLAIM INVESTIGATOR is normal as tested, no gross motor deficit Objective Data Vital Signs Vital Signs: Vital Signs - 24 hr 11/14/24 20:00 11/14/24 22:21 11/15/24 04:34 Temperature 98.6 F 97.7 F Pulse Rate 64 64 65 Respiratory Rate 16 16 16 Blood Pressure 150/62 H 144/64 H Pulse Oximetry 95 95 93 Oxygen Delivery Room Air 11/15/24 13:31 Temperature 97.8 F Pulse Rate 70 Respiratory Rate 14 Blood Pressure 138/56 L Pulse Oximetry 94 Oxygen Delivery Intake/Output Intake/Output: Intake & Output 11/12/24 11/13/24 11/14/24 11/15/24 23:59 23:59 23:59 23:59 Intake Total 1300 2100 Balance 1300 2100 Meds/Results Medications: Active Medications Generic Name Dose Route Start Last Admin Trade Name Parkerq PRN Reason Stop Dose Admin Atorvastatin Calcium 10 mg 11/15/24 12:00 11/15/24 12:18 Atorvastatin 10 Mg Tablet PO 10 mg DAILY JUNIE Administration Baclofen 20 mg 11/15/24 13:00 11/15/24 12:18 Baclofen 10 Mg Tablet PO 20 mg TID JUNIE Administration Calcium Carbonate 500 mg 11/16/24 09:00 Calcium/Vitamin D 500 Mg/5 Mcg (200 I.U.) Tablet PO DAILY [facility] Escitalopram Oxalate 2.5 mg 11/16/24 09:00 Escitalopram Oxalate 2.5 Mg Tablet PO DAILY [facility] Fluticasone Propionate 1 spray 11/15/24 11:37 Fluticasone Propionate 0.05% Na Spr 16 Gm Btl (*Bkc) NASAL DAILY PRN Allergy Symptoms Hydralazine HCl 10 mg 11/14/24 11:50 Hydralazine Hcl 20 Mg/Ml Vial IV PUSH Q8H PRN Blood Pressure - High SBP>180 Sodium Chloride 1,000 mls @ 150 mls/hr 11/14/24 11:35 11/15/24 13:21 Normal Saline Iv IV CONT 150 mls/hr .Q6H40M JUNIE Administration Ceftriaxone Sodium 2 gm/ 100 mls @ 200 mls/hr 11/14/24 12:00 11/15/24 12:19 Sodium Chloride IVPB 200 mls/hr Q24H JUNIE Administration Metronidazole 500 mg in 100 mls @ 100 mls/hr 11/14/24 13:00 11/15/24 13:22 Flagyl 500 Mg/Iso Soln 100 Ml IVPB 100 mls/hr Q8HR JUNIE Administration Levothyroxine Sodium 100 mcg 11/16/24 06:30 Levothyroxine Sodium 100 Mcg Tablet PO DAILY@0630 [facility] Lidocaine 1 patch 11/15/24 21:00 Lidocaine 5% Patch TOPICAL QHS [facility] Liothyronine Sodium 5 mcg 11/16/24 09:00 Liothyronine Sodium 5 Mcg Tablet PO DAILY [facility] Losartan Potassium 100 mg 11/16/24 09:00 Losartan Potassium 100 Mg Tablet PO DAILY [facility] Magnesium Oxide 600 mg 11/15/24 13:10 Magnesium Oxide 200 Mg Tablet PO DAILY PRN leg cramps Melatonin 10 mg 11/15/24 21:00 Melatonin 5 Mg Tablet PO QHS [facility] Morphine Sulfate 2 mg 11/14/24 11:36 11/15/24 09:42 Morphine Sulfate (*Crx) 2 Mg/Ml Inj IV PUSH 2 mg Q4H PRN Administration Pain Rated 7-10 Multivitamins Therapeutic 1 tablet 11/16/24 09:00 Multivitamins Therapeutic Tab (*Bkc) PO DAILY [facility] Non-Formulary Medication 1 drop 11/15/24 17:00 Lifitegrast [Xiidra] EACH EYE 12/15/24 16:59 BID [facility] Olopatadine HCl 1 drop 11/16/24 09:00 Olopatadine 0.1% Ophth Soln 5 Ml Btl EACH EYE DAILY [facility] Ondansetron HCl 4 mg 11/14/24 09:46 11/15/24 09:46 Ondansetron Inj 4 Mg/2 Ml Vial IV PUSH 4 mg Q4H PRN Administration Nausea Oxycodone/Acetaminophen 0.5 tablet 11/15/24 11:37 Oxycodone/Acetaminophen (*Crx) 5-325 Mg Tablet PO DAILY PRN Pain 4-6 Pantoprazole Sodium 40 mg 11/14/24 11:40 11/15/24 08:11 Pantoprazole Sodium Iv 40 Mg Vial IV PUSH 40 mg Q12HR JUNIE Administration Pantoprazole Sodium 40 mg 11/16/24 09:00 Pantoprazole 40 Mg Tablet PO QAM [facility] Valacyclovir HCl 500 mg 11/15/24 11:37 Valacyclovir Hcl 500 Mg Tablet PO DAILY PRN other Radiology Results: ITS Impressions Abdomen/Pelvis CT 11/14/24 08:53 IMPRESSION: 1. Diffuse wall thickening and surrounding fat stranding around the stomach, duodenum and proximal jejunum. Findings are concerning for gastroenteritis. 2. 5 mm calculus in right kidney. Mild hydroureteronephrosis without obstructive calculus. 3. 1.1 cm mass in left kidney, incompletely evaluated on current examination. Correlate with prior imaging if available to document stability otherwise renal mass protocol MRI or CT is recommended for further evaluation. Abdomen Ultrasound 11/14/24 15:35 IMPRESSION: 1: Visualized pancreas is heterogeneous with a small amount of surrounding peripancreatic fluid. Findings are concerning for acute pancreatitis. Correlate clinically. Recommend follow-up to resolution. 2. Cholelithiasis. 3. Multiple right renal cysts. 4. Positive Mojica's sign according to the technologist was suggest the possibility of acute cholecystitis. Gallbladder wall is mildly thickened. If of concern, consider a HIDA scan. Labs Labs: Laboratory Results - last 24 hr 11/15/24 04:40 WBC 20.9 H RBC 4.69 Hgb 14.1 D Hct 42.7 MCV 91.0 MCH 30.1 MCHC 33.0 RDW 15.1 H Plt Count 182 MPV 10.4 Sodium 136 L Potassium 3.3 L Chloride 108 H Carbon Dioxide 24 Anion Gap 4 BUN 14 D Creatinine 0.50 L Estim Creat Clear Calc 75 Estimated GFR > 60 Glucose 94 Calcium 8.3 L Total Bilirubin 1.7 H AST 36 ALT 19 Alkaline Phosphatase 59 Total Protein 5.8 L Albumin 3.1 L
[2024-11-15] MEDS: POTASSIUM CHLORIDE 20 MEQ ER TABLET 40 MEQ PO (16:47)
[2024-11-15] MEDS: LIFITEGRAST 5% EACH EYE (16:48)
[2024-11-15] MEDS: [UNRECOGNIZED DRUG - OTHER] EACH EYE (16:48)
[2024-11-15] MEDS: LACTATED RINGERS 1,000 ML 150 ML IV CONT ×2 (16:50→23:50)
[2024-11-15 19:51] VITALS: BP 154/83; PULSE 81; RESP 16; TEMP 36.4; O2SAT 95
[2024-11-15 20:00] VITALS: PULSE 81; RESP 16; O2SAT 95
[2024-11-15] MEDS: LIDOCAINE 5% PATCH 1 PATCH TOPICAL (20:27)
[2024-11-16] MEDS: ONDANSETRON INJ 4 MG/2 ML VIAL IV PUSH ×6 (01:17→23:51)
[2024-11-16] MEDS: MORPHINE SULFATE (*CRX) 2 MG/ML INJ IV PUSH ×6 (01:18→23:54)
[2024-11-16 03:57] VITALS: BP 149/68; PULSE 77; RESP 16; TEMP 36.7; O2SAT 96
[2024-11-16 04:59] LABS: Hematocrit 38.8 % (37.0-47.0); Hemoglobin 12.5 g/dL (12.0-15.0); Mean Corpuscular HGB Conc 32.2 g/dl (32-36); Mean Corpuscular Hemoglobin 30.0 pg (26-34); Mean Corpuscular Volume 93.0 fl (80-100); Platelet Count Result 154 k/mm3 (150-375); Red Blood Count 4.17 M/mm3 (4.2-5.4); White Blood Count 18.3 K/mm3 (4.5-10.0)
[2024-11-16 05:14] LABS: Alanine Aminotransferase 16 U/L (6-35); Albumin Level 2.9 g/dL (3.5-5.1); Alkaline Phosphatase 56 U/L (38-126); Anion Gap 3 mmol/L (4-12); Aspartate Amino Transferase 32 U/L (14-36); Bilirubin,Total 1.3 mg/dL (0.2-1.3); Blood Urea Nitrogen 10 mg/dL (7-17); Calcium 8.2 mg/dL (8.4-10.2); Carbon Dioxide 21 mmol/L (22-30); Chloride 107 mmol/L (98-107); Estimated CRCL calculation 81 ml/min; Estimated Glomerular Filt Rate > 60; Glucose 84 mg/dL (65-110); Potassium 3.6 mmol/L (3.4-5.0); Sodium 131 mmol/L (137-145); Total Protein 5.5 g/dL (6.3-8.2)
[2024-11-16] MEDS: LEVOTHYROXINE SODIUM 100 MCG TABLET PO (05:20)
[2024-11-16] MEDS: LACTATED RINGERS 1,000 ML 150 ML IV CONT (06:31)
--- NOTE | 2024-11-16 07:30 | P.PNIM_ITS ---
Progress Note: A&P Assessment and Plan (1) Pre-diabetes: Code(s): R73.03 - Prediabetes Status: Acute (2) Alcohol use: Code(s): F10.90 - Alcohol use, unspecified, uncomplicated Status: Acute (3) Anxiety with depression: Code(s): F41.8 - Other specified anxiety disorders Status: Acute (4) Rotator cuff tear arthropathy of both shoulders: Code(s): M75.101 - Unspecified rotator cuff tear or rupture of right shoulder, not specified as traumatic; M12.811 - Other specific arthropathies, not elsewhere classified, right shoulder; M12.812 - Other specific arthropathies, not elsewhere classified, left shoulder; M75.102 - Unspecified rotator cuff tear or rupture of left shoulder, not specified as traumatic Status: Acute (5) Hypertension: Qualifiers: Hypertension type: unspecified Qualified Code(s): I10 - Essential (primary) hypertension Code(s): I10 - Essential (primary) hypertension Status: Acute (6) Obesity: Code(s): E66.9 - Obesity, unspecified Status: Acute (7) Hypothyroidism, unspecified: Code(s): E03.9 - Hypothyroidism, unspecified Status: Chronic (8) Pancreatitis: Qualifiers: Acute pancreatitis complication: no infection or necrosis Chronicity: acute Pancreatitis type: unspecified pancreatitis type Qualified Code(s): K85.90 - Acute pancreatitis without necrosis or infection, unspecified Code(s): K85.90 - Acute pancreatitis without necrosis or infection, unspecified Status: Acute Plan Pancreatitis/acute cholecystitis abd pain, nausea vomiting Possible secondary to pancreatitis versus gastritis Elevated liver enzyme Elevated lipase. Continue IV fluid, pain medication Us concerning for acute cholecystitis. will get HIDA scan if GI recommends. GI and surgery team on board Continue monitor Clear liquid diet Pain control ordered Currently on Zosyn Hypothyroidism Levothyroxine HTN losartan kidney mass Found on CT. MRI as outpatient Subjective Date/time seen: 11/16/24 07:30 Interval history: HPI: Patient with history of HLD, HTN, hypothyroidism, gastritis presented with nausea vomiting and abdominal pain on 11/14.Patient notes yesterday around noon she started to have nausea vomiting after eating food. She also started to have epigastric pressure 3-8/10 pain. Pain is constant. Getting better with rest. Getting worse with palpation. Does not radiate.Patient takes atenolol for chronic pain. She drinks alcohol occasionally. Last drink was about 1 week ago. Review of previous chart shows she received cortisone shot in her shoulder on 11/11/2024. In ER vital signs was unremarkable except for blood pressure 178/99. Lab test WBC 17.5, hemoglobin 17.2. Mildly elevated liver enzyme. Lipase 3343. CT showed:Diffuse wall thickening and surrounding fat stranding around the stomach, duodenum and proximal jejunum. Findings are concerning for gastroenteritis. 2. 5 mm calculus in right kidney. Mild hydroureteronephrosis without obstructive calculus. 3. 1.1 cm mass in left kidney, incompletely evaluated on current examination. Correlate with prior imaging if available to document stability otherwise renal mass protocol MRI or CT is recommended for further evaluation. US concerning for acute cholecystitis. will get HIDA scan. GI and surgery team onboard clear liquid diet and possible EGD on Monday if she stay in the hospital . 11/16: The patient is admitted in the setting of pancreatitis, acute cholecystitis and cholelithiasis. Surgery evaluated the patient advised to continue IV antibiotics, IV analgesic and IV fluid and possibly laparoscopic cholecystectomy once a pancreatitis resolves. Of note patient has a history of duodenal ulcer. Patient was evaluated by GI agrees with the pancreatitis and laparoscopic cholecystectomy once the acute episode has resolved. Review of Systems Review of Systems: All systems reviewed & are unremarkable except as noted in HPI and below Exam Narrative: General appearance: Well-developed, well-nourished Skin: Normal color Head: Normocephalic, nontraumatic Eyes: Clear conjunctiva ENT: dry oral cavity Neck: Supple, nontender Chest and respiratory: Airway patent, no respiratory distress, no accessory muscle use Heart: Regular rate/rhythm Abdomen: Soft, epigastric tenderness, no organomegaly, quiet bowel sounds Vascular: Normal peripheral pulses, normal capillary refill. Musculoskeletal: Normal range of motion, nontender back Neurologic: Alert and oriented ?3, [employer] is normal as tested, no gross motor deficit Objective Data Vital Signs Vital Signs: Vital Signs - 24 hr 11/15/24 13:31 11/15/24 19:51 11/15/24 20:00 Temperature 97.8 F 97.6 F Pulse Rate 70 81 81 Respiratory Rate 14 16 16 Blood Pressure 138/56 L 154/83 H Pulse Oximetry 94 95 95 Oxygen Delivery Room Air 11/16/24 03:57 Temperature 98.0 F Pulse Rate 77 Respiratory Rate 16 Blood Pressure 149/68 H Pulse Oximetry 96 Oxygen Delivery Intake/Output Intake/Output: Intake & Output 11/13/24 11/14/24 11/15/24 11/16/24 23:59 23:59 23:59 23:59 Intake Total 1300 3821 1300 Balance 1300 3821 1300 Meds/Results Medications: Active Medications Generic Name Dose Route Start Last Admin Trade Name Freq PRN Reason Stop Dose Admin Atorvastatin Calcium 10 mg 11/15/24 12:00 11/15/24 12:18 Atorvastatin 10 Mg Tablet PO 10 mg DAILY JUNIE Administration Baclofen 20 mg 11/15/24 13:00 11/15/24 16:47 Baclofen 10 Mg Tablet PO 20 mg TID JUNIE Administration Calcium Carbonate 500 mg 11/16/24 09:00 Calcium/Vitamin D 500 Mg/5 Mcg (200 I.U.) Tablet PO DAILY [facility] Escitalopram Oxalate 2.5 mg 11/16/24 09:00 Escitalopram Oxalate 2.5 Mg Tablet PO DAILY JUNIE Fluticasone Propionate 1 spray 11/15/24 11:37 Fluticasone Propionate 0.05% Na Spr 16 Gm Btl (*Bkc) NASAL DAILY PRN Allergy Symptoms Hydralazine HCl 10 mg 11/14/24 11:50 Hydralazine Hcl 20 Mg/Ml Vial IV PUSH Q8H PRN Blood Pressure - High SBP>180 Lactated Ringer's 1,000 mls @ 150 mls/hr 11/15/24 16:20 11/16/24 06:31 Lr - Lactated Ringers Iv IV CONT 150 mls/hr .Q6H40M JUNIE Administration Levothyroxine Sodium 100 mcg 11/16/24 06:30 11/16/24 05:20 Levothyroxine Sodium 100 Mcg Tablet PO 100 mcg DAILY@0630 JUNIE Administration Lidocaine 1 patch 11/15/24 21:00 11/15/24 20:27 Lidocaine 5% Patch TOPICAL 1 patch QHS JUNIE Administration Liothyronine Sodium 5 mcg 11/16/24 09:00 Liothyronine Sodium 5 Mcg Tablet PO DAILY [facility] Losartan Potassium 100 mg 11/16/24 09:00 Losartan Potassium 100 Mg Tablet PO DAILY [facility] Magnesium Oxide 600 mg 11/15/24 13:10 Magnesium Oxide 200 Mg Tablet PO DAILY PRN leg cramps Melatonin 10 mg 11/15/24 21:00 11/15/24 22:59 Melatonin 5 Mg Tablet PO Not Given QHS [facility] Morphine Sulfate 2 mg 11/14/24 11:36 11/16/24 05:20 Morphine Sulfate (*Crx) 2 Mg/Ml Inj IV PUSH 2 mg Q4H PRN Administration Pain Rated 7-10 Multivitamins Therapeutic 1 tablet 11/16/24 09:00 Multivitamins Therapeutic Tab (*Bkc) PO DAILY [facility] Non-Formulary Medication 1 drop 11/15/24 17:00 11/15/24 16:48 Lifitegrast [Xiidra] EACH EYE 12/15/24 16:59 1 drop BID JUNIE Administration Olopatadine HCl 1 drop 11/16/24 09:00 Olopatadine 0.1% Ophth Soln 5 Ml Btl EACH EYE DAILY [facility] Ondansetron HCl 4 mg 11/14/24 09:46 11/16/24 05:20 Ondansetron Inj 4 Mg/2 Ml Vial IV PUSH 4 mg Q4H PRN Administration Nausea Oxycodone/Acetaminophen 0.5 tablet 11/15/24 11:37 Oxycodone/Acetaminophen (*Crx) 5-325 Mg Tablet PO DAILY PRN Pain 4-6 Pantoprazole Sodium 40 mg 11/16/24 09:00 Pantoprazole 40 Mg Tablet PO QAM [facility] Valacyclovir HCl 500 mg 11/15/24 11:37 Valacyclovir Hcl 500 Mg Tablet PO DAILY PRN other Radiology Results: ITS Impressions Abdomen/Pelvis CT 11/14/24 08:53 IMPRESSION: 1. Diffuse wall thickening and surrounding fat stranding around the stomach, duodenum and proximal jejunum. Findings are concerning for gastroenteritis. 2. 5 mm calculus in right kidney. Mild hydroureteronephrosis without obstructive calculus. 3. 1.1 cm mass in left kidney, incompletely evaluated on current examination. Correlate with prior imaging if available to document stability otherwise renal mass protocol MRI or CT is recommended for further evaluation. Abdomen Ultrasound 11/14/24 15:35 IMPRESSION: 1: Visualized pancreas is heterogeneous with a small amount of surrounding peripancreatic fluid. Findings are concerning for acute pancreatitis. Correlate clinically. Recommend follow-up to resolution. 2. Cholelithiasis. 3. Multiple right renal cysts. 4. Positive Mojica's sign according to the technologist was suggest the possibility of acute cholecystitis. Gallbladder wall is mildly thickened. If of concern, consider a HIDA scan. Labs Labs: Laboratory Results - last 24 hr 11/16/24 04:51 WBC 18.3 H RBC 4.17 L Hgb 12.5 Hct 38.8 MCV 93.0 MCH 30.0 MCHC 32.2 RDW 15.5 H Plt Count 154 MPV 10.6 H Sodium 131 L Potassium 3.6 Chloride 107 Carbon Dioxide 21 L Anion Gap 3 L BUN 10 Creatinine 0.46 L Estim Creat Clear Calc 81 Estimated GFR > 60 Glucose 84 Calcium 8.2 L Total Bilirubin 1.3 AST 32 ALT 16 Alkaline Phosphatase 56 Total Protein 5.5 L Albumin 2.9 L Hospitalist MIPS Advance Care Plan I have confirmed that the patient's Advanced Care Plan is present, code status is documented, or surrogate decision maker is listed in patient medical record.: Yes Medication Reconciliation I have utilized all available resources to obtain, update and review the patients current medications (includes all prescriptions, OTC, herbals, cannabis, and nutritional supplements).: Yes
[2024-11-16 08:16] LABS: Lipase 74 U/L (23-300)
[2024-11-16] MEDS: BACLOFEN 10 MG TABLET 20 MG PO ×3 (09:28→17:18)
[2024-11-16] MEDS: ATORVASTATIN 10 MG TABLET PO (09:28)
[2024-11-16] MEDS: LIOTHYRONINE SODIUM 5 MCG TABLET PO (09:29)
[2024-11-16] MEDS: LOSARTAN POTASSIUM 100 MG TABLET PO (09:29)
[2024-11-16] MEDS: ESCITALOPRAM OXALATE 2.5 MG TABLET PO (09:29)
[2024-11-16] MEDS: MULTIVITAMINS THERAPEUTIC TAB (*BKC) 1 TABLET PO (09:29)
[2024-11-16 09:30] VITALS: BP 125/59; PULSE 71; O2SAT 95
[2024-11-16] MEDS: OLOPATADINE 0.1% OPHTH SOLN 5 ML BTL 1 DROP EACH EYE (09:30)
[2024-11-16] MEDS: LIFITEGRAST 5% EACH EYE ×2 (09:32→17:21)
[2024-11-16] MEDS: [UNRECOGNIZED DRUG - OTHER] EACH EYE ×2 (09:32→17:21)
[2024-11-16] MEDS: PIPERACILLIN/TAZOBACTAM SOD 3.375 GM in SODIUM CHLORIDE 0.9% IV 50 ML 100 ML IVPB ×4 (09:50→23:54)
[2024-11-16] MEDS: ENOXAPARIN 40 MG/0.4 ML SYRINGE SUB-Q (10:12)
[2024-11-16] MEDS: CALCIUM/VITAMIN D 500 MG/5 MCG (200 I.U.) TABLET PO (10:12)
--- NOTE | 2024-11-16 10:50 | PM.PNGS ---
Progress Note: A&P Assessment and Plan (1) Cholelithiasis with acute on chronic cholecystitis: Code(s): K80.12 - Calculus of gallbladder with acute and chronic cholecystitis without obstruction Status: Acute Assessment and Plan: Continues to feel bad due to right upper quadrant pain, poor appetite, intermittent nausea. She continues to have tenderness over her gallbladder. I discussed this with Dr. Neumann. Will try low-fat diet today but if not significantly better tomorrow will go ahead with laparoscopic cholecystectomy. Continue Zosyn antibiotics. Patient has history of ulcer disease but we both feel this is more consistent with cholecystitis. I discussed the procedure of laparoscopic cholecystectomy with her yesterday and again today. I explained that intraoperative cholangiogram would also be needed. Procedure, risks, benefits, usual recovery have all been discussed. All questions were answered. (2) Pancreatitis: Qualifiers: Chronicity: acute Pancreatitis type: unspecified pancreatitis type Acute pancreatitis complication: no infection or necrosis Qualified Code(s): K85.90 - Acute pancreatitis without necrosis or infection, unspecified Code(s): K85.90 - Acute pancreatitis without necrosis or infection, unspecified Status: Acute Assessment and Plan: Pancreas was never inflamed on CT scan although lipase was elevated on admission. Repeat lipase today is normal at 74. Suspect persistent symptoms are due to cholecystitis not pancreatitis. Will perform cholangiogram when cholecystectomy is done. Subjective Subjective Date/Time Seen: 11/16/24 10:50 Patient reports: still having pain, voiding w/o difficulty, bowel movement and afebrile Review of Systems Review of Systems: All systems reviewed & are unremarkable except as noted in HPI and below (HPI) Exam Const: General: cooperative, no acute distress, alert, awake, ill appearing, tired appearing and average body habitus Orientation/consciousness: patient oriented x3 Resp: Effort & Inspection: normal respiratory effort Auscultation: clear to auscultation bilaterally Cardio: Rate: regular rate Rhythm: regular rhythm GI: Inspection: non-distended and scaphoid GI Palp: Yes Soft to palpation, Yes Tenderness to palpation present (GI) (Still very tender over gallbladder), No Guarding due to palpation present (GI), No Palpable mass present (Gallbladder not palpable) and No Rebound tenderness present Auscultation: normal bowel sounds Neuro: General: patient oriented x3 and no focal motor deficits Extrem: General: no calf tenderness and no edema Psych: Speech and movement: Clear speech present Affect: Blunted affect present Attitude: cooperative Thought process: Normal thought process present Insight: Good insight present (Psych) Judgement: Good judgement present (Psych) Objective Data Vital Signs Vital Signs: Vital Signs - 24 hr 11/15/24 13:31 11/15/24 19:51 11/15/24 20:00 Temperature 36.6 C 36.4 C Pulse Rate 70 81 81 Respiratory Rate 14 16 16 Blood Pressure 138/56 L 154/83 H Pulse Oximetry 94 95 95 Oxygen Delivery Room Air 11/16/24 03:57 11/16/24 09:30 Temperature 36.7 C Pulse Rate 77 71 Respiratory Rate 16 Blood Pressure 149/68 H 125/59 L Pulse Oximetry 96 95 Oxygen Delivery Intake/Output Intake/Output: Intake & Output 11/13/24 11/14/24 11/15/24 11/16/24 23:59 23:59 23:59 23:59 Intake Total 1300 3821 1386 Balance 1300 3821 1386 Meds/Results Medications: Active Medications Generic Name Dose Route Start Last Admin Trade Name Freq PRN Reason Stop Dose Admin Atorvastatin Calcium 10 mg 11/15/24 12:00 11/16/24 09:28 Atorvastatin 10 Mg Tablet PO 10 mg DAILY JUNIE Administration Baclofen 20 mg 11/15/24 13:00 11/16/24 09:28 Baclofen 10 Mg Tablet PO 20 mg TID JUNIE Administration Calcium Carbonate 500 mg 11/16/24 09:00 11/16/24 10:12 Calcium/Vitamin D 500 Mg/5 Mcg (200 I.U.) Tablet PO 500 mg DAILY JUNIE Administration Enoxaparin Sodium 40 mg 11/16/24 09:00 11/16/24 10:12 Enoxaparin 40 Mg/0.4 Ml Syringe SUB-Q 40 mg DAILY JUNIE Administration Escitalopram Oxalate 2.5 mg 11/16/24 09:00 11/16/24 09:29 Escitalopram Oxalate 2.5 Mg Tablet PO 2.5 mg DAILY JUNIE Administration Fluticasone Propionate 1 spray 11/15/24 11:37 Fluticasone Propionate 0.05% Na Spr 16 Gm Btl (*Bkc) NASAL DAILY PRN Allergy Symptoms Hydralazine HCl 10 mg 11/14/24 11:50 Hydralazine Hcl 20 Mg/Ml Vial IV PUSH Q8H PRN Blood Pressure - High SBP>180 Potassium Chloride/Dextrose/Sod Cl 1,000 mls @ 100 mls/hr 11/16/24 08:00 Kcl 20 Meq/D5/0.9% Sod Chl IV CONT .Q10H JUNIE Piperacillin Sod/Tazobactam 50 mls @ 100 mls/hr 11/16/24 08:00 11/16/24 09:50 Sod 3.375 gm/ Sodium Chloride IVPB 100 mls/hr Q6HR JUNIE Administration Levothyroxine Sodium 100 mcg 11/16/24 06:30 11/16/24 05:20 Levothyroxine Sodium 100 Mcg Tablet PO 100 mcg DAILY@0630 JUNIE Administration Lidocaine 1 patch 11/15/24 21:00 11/15/24 20:27 Lidocaine 5% Patch TOPICAL 1 patch QHS JUNIE Administration Liothyronine Sodium 5 mcg 11/16/24 09:00 11/16/24 09:29 Liothyronine Sodium 5 Mcg Tablet PO 5 mcg DAILY JUNIE Administration Losartan Potassium 100 mg 11/16/24 09:00 11/16/24 09:29 Losartan Potassium 100 Mg Tablet PO 100 mg DAILY JUNIE Administration Magnesium Oxide 600 mg 11/15/24 13:10 Magnesium Oxide 200 Mg Tablet PO DAILY PRN leg cramps Melatonin 10 mg 11/15/24 21:00 11/15/24 22:59 Melatonin 5 Mg Tablet PO Not Given QHS [facility] Morphine Sulfate 2 mg 11/14/24 11:36 11/16/24 09:33 Morphine Sulfate (*Crx) 2 Mg/Ml Inj IV PUSH 2 mg Q4H PRN Administration Pain Rated 7-10 Multivitamins Therapeutic 1 tablet 11/16/24 09:00 11/16/24 09:29 Multivitamins Therapeutic Tab (*Bkc) PO 1 tablet DAILY JUNIE Administration Non-Formulary Medication 1 drop 11/15/24 17:00 11/16/24 09:32 Lifitegrast [Xiidra] EACH EYE 12/15/24 16:59 1 drop BID JUNIE Administration Olopatadine HCl 1 drop 11/16/24 09:00 11/16/24 09:30 Olopatadine 0.1% Ophth Soln 5 Ml Btl EACH EYE 1 drop DAILY JUNIE Administration Ondansetron HCl 4 mg 11/14/24 09:46 11/16/24 09:32 Ondansetron Inj 4 Mg/2 Ml Vial IV PUSH 4 mg Q4H PRN Administration Nausea Oxycodone/Acetaminophen 0.5 tablet 11/15/24 11:37 Oxycodone/Acetaminophen (*Crx) 5-325 Mg Tablet PO DAILY PRN Pain 4-6 Pantoprazole Sodium 40 mg 11/16/24 09:00 Pantoprazole 40 Mg Tablet PO On Hold: 11/16/24 09:00 QAM [facility] Comment: PT CURRENTLY ON IV PANTOPRAZOLE Valacyclovir HCl 500 mg 11/15/24 11:37 Valacyclovir Hcl 500 Mg Tablet PO DAILY PRN other Radiology Results: ITS Impressions Abdomen/Pelvis CT 11/14/24 08:53 IMPRESSION: 1. Diffuse wall thickening and surrounding fat stranding around the stomach, duodenum and proximal jejunum. Findings are concerning for gastroenteritis. 2. 5 mm calculus in right kidney. Mild hydroureteronephrosis without obstructive calculus. 3. 1.1 cm mass in left kidney, incompletely evaluated on current examination. Correlate with prior imaging if available to document stability otherwise renal mass protocol MRI or CT is recommended for further evaluation. Abdomen Ultrasound 11/14/24 15:35 IMPRESSION: 1: Visualized pancreas is heterogeneous with a small amount of surrounding peripancreatic fluid. Findings are concerning for acute pancreatitis. Correlate clinically. Recommend follow-up to resolution. 2. Cholelithiasis. 3. Multiple right renal cysts. 4. Positive Mojica's sign according to the technologist was suggest the possibility of acute cholecystitis. Gallbladder wall is mildly thickened. If of concern, consider a HIDA scan. Labs Labs: Laboratory Results - last 24 hr 11/16/24 04:51 WBC 18.3 H RBC 4.17 L Hgb 12.5 Hct 38.8 MCV 93.0 MCH 30.0 MCHC 32.2 RDW 15.5 H Plt Count 154 MPV 10.6 H Sodium 131 L Potassium 3.6 Chloride 107 Carbon Dioxide 21 L Anion Gap 3 L BUN 10 Creatinine 0.46 L Estim Creat Clear Calc 81 Estimated GFR > 60 Glucose 84 Calcium 8.2 L Total Bilirubin 1.3 AST 32 ALT 16 Alkaline Phosphatase 56 Total Protein 5.5 L Albumin 2.9 L Lipase 74
--- NOTE | 2024-11-16 10:57 | WPDGICN ---
Assessment and Plan Assessment and plan (1) Acute pancreatitis: Code(s): K85.90 - Acute pancreatitis without necrosis or infection, unspecified Status: Acute Assessment and Plan: The patient meets the diagnostic criteria for acute pancreatitis, presenting with both a lipase level greater than 3,000 and the classic severe, acute-onset epigastric pain. Although imaging doesn't show classic interstitial pancreatitis, the presence of peripancreatic stranding and fluid provides sufficient evidence to support the diagnosis. Given the presence of gallstones, a laparoscopic cholecystectomy is recommended once the acute episode has resolved. The elevated white blood cell count is likely due to a systemic inflammatory response rather than an infection, so discontinuing broad-spectrum antibiotics should be considered. GI Consult Note Consult date/time: 11/16/24 10:57 Reason for consult: Acute pancreatitis HPI: Lawanda Worthy, a 74-year-old female, was admitted on November 14, 2024, with a 24-hour history of nausea, vomiting, and severe epigastric pain. Initial lab work revealed a lipase level greater than 3,000, while her liver chemistry remained normal. Imaging studies showed a normal pancreas on CT scan but with fat stranding around the stomach, duodenum, and jejunum. An abdominal sonogram also noted peripancreatic fluid and the presence of gallstones. She has been receiving intravenous hydration, and this morning her condition has improved. While she reports mild abdominal distention and diffuse discomfort, her severe epigastric pain has resolved. The patient also has a remote history of peptic ulcer disease. 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 Graves disease Obesity Hypothyroidism, unspecified Rotator cuff dysfunction Ovary removal, prophylactic Surgical History Surgical History H/O radioactive iodine thyroid ablation Hx of tonsillectomy History of carpal tunnel release Family History Family History Other Diabetes mellitus Family history of alcoholism Social History Social History Smoking status: Never smoker Alcohol intake: current Alcohol use details: maybe 1 glass of wine per month Substance use: never Do You Feel Safe in your Home?: Yes Lack of Transportation: No Lack of Food: Never True Current Housing: I Have Housing Concerned About Future Housing: No Difficulty Paying Gas/Electric Bills: No Difficulty Paying for Meds: No Currently Unemployed: No Education: Associate Degree Difficulty w/ Childcare or Family Care: No Living arrangements: with family Spiritual care concerns: No Meds Home Medications and Allergies Home Medications ?Medication ?Instructions ?Recorded ?Confirmed ?Type baclofen 20 mg tablet 20 mg PO TID 09/01/20 11/14/24 History ascorbic acid (vitamin C) 500 mg 500 mg PO DAILY 09/07/21 11/14/24 History capsule calcium 500 mg (as 1 tablet PO DAILY 09/07/21 11/14/24 History carbonate)-vitamin D3 10 mcg (400 unit) tablet fluticasone propionate 50 1 spray intranasal DAILY PRN 09/07/21 11/14/24 History mcg/actuation nasal Allergy Symptoms spray,suspension (Allergy Relief (fluticasone)) magnesium 30 mg tablet 30 mg PO DAILY 09/07/21 11/14/24 History olopatadine 0.1 % eye drops 1 drp EACH EYE DAILY 09/07/21 11/14/24 History lifitegrast 5 % eye drops in a 1 drp EACH EYE BID 12/20/21 11/14/24 History dropperette (Xiidra) melatonin 10 mg capsule 10 mg PO QHS 09/12/22 11/14/24 History atorvastatin 10 mg tablet See Rx Instructions .Route 10/31/23 11/14/24 Rx .COMPLEX #90 tabs losartan 100 mg tablet 100 mg PO DAILY #90 tabs 10/31/23 11/14/24 Rx levothyroxine 100 mcg tablet 100 mcg PO DAILY #90 tabs 05/28/24 11/14/24 Rx oxycodone-acetaminophen 5 mg-325 0.5 tablet PO DAILY PRN pain 06/07/24 11/14/24 History mg tablet (Percocet) liothyronine 5 mcg tablet See Rx Instructions .Route 08/20/24 11/14/24 Rx .COMPLEX #90 tabs valacyclovir 500 mg tablet 500 mg PO DAILY PRN other #90 tabs 10/10/24 11/14/24 Rx escitalopram oxalate 5 mg tablet 2.5 mg PO DAILY 11/11/24 11/14/24 History (Lexapro) multivitamin (Daily Multi-Vitamin 1 tablet PO DAILY 11/11/24 11/14/24 History tablet) omeprazole 20 mg capsule,delayed 20 mg PO DAILY 11/11/24 11/14/24 History release lidocaine 5 % topical patch 1 patch topical Q24H 11/14/24 11/14/24 History Allergies Allergy/AdvReac Type Severity Reaction Status Date / Time diclofenac AdvReac Unknown unknown Verified 11/11/24 10:52 gluten AdvReac Unknown Unknown Verified 11/11/24 10:52 lactose AdvReac Unknown Unknown Verified 11/11/24 10:52 Vital Signs Vital Signs - 24 hr 11/15/24 13:31 11/15/24 19:51 11/15/24 20:00 Temperature 97.8 F 97.6 F Pulse Rate 70 81 81 Respiratory Rate 14 16 16 Blood Pressure 138/56 L 154/83 H Pulse Oximetry 94 95 95 Oxygen Delivery Room Air 11/16/24 03:57 11/16/24 09:30 Temperature 98.0 F Pulse Rate 77 71 Respiratory Rate 16 Blood Pressure 149/68 H 125/59 L Pulse Oximetry 96 95 Oxygen Delivery Exam Const: General: cooperative, no acute distress, alert, awake, ill appearing, tired appearing and average body habitus Orientation/consciousness: patient oriented x3 Resp: Effort & Inspection: normal respiratory effort Auscultation: clear to auscultation bilaterally Cardio: Rate: regular rate Rhythm: regular rhythm GI: Inspection: non-distended and scaphoid GI Palp: Yes Soft to palpation, Yes Tenderness to palpation present (GI) (Still very tender over gallbladder), No Guarding due to palpation present (GI), No Palpable mass present (Gallbladder not palpable) and No Rebound tenderness present Auscultation: normal bowel sounds Neuro: General: patient oriented x3 and no focal motor deficits Extrem: General: no calf tenderness and no edema Psych: Speech and movement: Clear speech present Affect: Blunted affect present Attitude: cooperative Thought process: Normal thought process present Insight: Good insight present (Psych) Judgement: Good judgement present (Psych) Results Labs 11/16/24 04:51 11/16/24 04:51 Labs: Short CBC 11/16/24 Range/Units 04:51 WBC 18.3 H (4.5-10.0) K/mm3 Hgb 12.5 (12.0-15.0) g/dL Hct 38.8 (37.0-47.0) % Plt Count 154 (150-375) k/mm3 BMP 11/16/24 04:51 Sodium 131 L Potassium 3.6 Chloride 107 Carbon Dioxide 21 L BUN 10 Creatinine 0.46 L Glucose 84 Calcium 8.2 L Liver Function 11/16/24 Range/Units 04:51 Total Bilirubin 1.3 (0.2-1.3) mg/dL AST 32 (14-36) U/L ALT 16 (6-35) U/L Alkaline Phosphatase 56 (38-126) U/L Albumin 2.9 L (3.5-5.1) g/dL
--- NOTE | 2024-11-16 12:28 | PM.CNGS ---
Assessment and Plan Assessment and plan (1) Cholelithiasis with acute on chronic cholecystitis: Code(s): K80.12 - Calculus of gallbladder with acute and chronic cholecystitis without obstruction Status: Acute Assessment and Plan: Continue IV antibiotics, analgesics, IV fluids. I suspect the lipase is elevated more due to cholecystitis than pancreatic duct stone. Hopefully her pain and tenderness will resolve. I explained that she will very likely need laparoscopic cholecystectomy. I explained that procedure as well as the usual recovery associated with it. We would hold off on this until her pancreatitis or at least lipase has improved if possible. (2) Acute pancreatitis: Qualifiers: Pancreatitis type: biliary Acute pancreatitis complication: no infection or necrosis Qualified Code(s): K85.10 - Biliary acute pancreatitis without necrosis or infection Code(s): K85.90 - Acute pancreatitis without necrosis or infection, unspecified Status: Acute Assessment and Plan: Unusual for the pancreas looked normal on CT scan but there was some evidence of inflammation on ultrasound and her lipase is 3300. This could be due to cholecystitis with adjacent pancreatic inflammation. She seems to have inflammation to of her stomach and duodenum by CT per report. Continue present treatment as noted above. Possibly try some liquids if okay with Gastroenterology. (3) Graves disease: Code(s): E05.00 - Thyrotoxicosis with diffuse goiter without thyrotoxic crisis or storm Status: Chronic Assessment and Plan: Treated with radioactive iodine ablation as below (4) H/O radioactive iodine thyroid ablation: Code(s): Z92.3 - Personal history of irradiation Status: Chronic (5) Hypothyroidism, unspecified: Qualifiers: Hypothyroidism type: acquired Qualified Code(s): E03.9 - Hypothyroidism, unspecified Code(s): E03.9 - Hypothyroidism, unspecified Status: Chronic History of Present Illness Consult details Consult date: 11/15/24 (Consult performed 11/15/2024 about 2:00 p.m.) Reason for consult: gallstones Requesting physician: Nadia Shahid MD Narrative: Patient is a 74-year-old woman who, after eating some lunch on 11/13/2024, developed protracted vomiting and upper abdominal pain across her upper abdomen. This persisted and she came to the emergency room the next morning. She was noted to have tenderness in the right upper quadrant. Palpation here also made her right upper quadrant pain considerably worse. Although dehydrated, she had a white blood cell count of 17,500. She also had a serum lipase of 3300. LFTs were slightly elevated. CT scan of the abdomen and pelvis showed the pancreas to be normal but inflammatory changes of this stomach and duodenum. Gallstones were noted. She had an ultrasound which showed evidence of cholecystitis and a positive Mojica sign. The ultrasound suggested some pancreatitis where as the CT scan did not. Patient also has a history of a duodenal ulcer and will get intermittent episodes of vomiting and abdominal pain but they usually go away fairly quickly. In fact she thought that this episode was actually her ulcer ?acting up.She reports that when she had her ultrasound, placement of the probe in the right upper quadrant really triggered a lot of additional pain. Currently she is still in pain but not quite that bad. She does not have much of an appetite. Her vomiting has stopped. She is seen now in consultation. 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 Graves disease Obesity Hypothyroidism, unspecified Rotator cuff dysfunction Ovary removal, prophylactic Surgical History Surgical History H/O radioactive iodine thyroid ablation Hx of tonsillectomy History of carpal tunnel release Family History Family History Other Diabetes mellitus Family history of alcoholism Social History Social History Smoking status: Never smoker Alcohol intake: current Alcohol use details: maybe 1 glass of wine per month Substance use: never Do You Feel Safe in your Home?: Yes Lack of Transportation: No Lack of Food: Never True Current Housing: I Have Housing Concerned About Future Housing: No Difficulty Paying Gas/Electric Bills: No Difficulty Paying for Meds: No Currently Unemployed: No Education: Associate Degree Difficulty w/ Childcare or Family Care: No Living arrangements: with family Spiritual care concerns: No Meds Home Medications and Allergies Home Medications ?Medication ?Instructions ?Recorded ?Confirmed ?Type baclofen 20 mg tablet 20 mg PO TID 09/01/20 11/14/24 History ascorbic acid (vitamin C) 500 mg 500 mg PO DAILY 09/07/21 11/14/24 History capsule calcium 500 mg (as 1 tablet PO DAILY 09/07/21 11/14/24 History carbonate)-vitamin D3 10 mcg (400 unit) tablet fluticasone propionate 50 1 spray intranasal DAILY PRN 09/07/21 11/14/24 History mcg/actuation nasal Allergy Symptoms spray,suspension (Allergy Relief (fluticasone)) magnesium 30 mg tablet 30 mg PO DAILY 09/07/21 11/14/24 History olopatadine 0.1 % eye drops 1 drp EACH EYE DAILY 09/07/21 11/14/24 History lifitegrast 5 % eye drops in a 1 drp EACH EYE BID 12/20/21 11/14/24 History dropperette (Xiidra) melatonin 10 mg capsule 10 mg PO QHS 09/12/22 11/14/24 History atorvastatin 10 mg tablet See Rx Instructions .Route 10/31/23 11/14/24 Rx .COMPLEX #90 tabs losartan 100 mg tablet 100 mg PO DAILY #90 tabs 10/31/23 11/14/24 Rx levothyroxine 100 mcg tablet 100 mcg PO DAILY #90 tabs 05/28/24 11/14/24 Rx oxycodone-acetaminophen 5 mg-325 0.5 tablet PO DAILY PRN pain 06/07/24 11/14/24 History mg tablet (Percocet) liothyronine 5 mcg tablet See Rx Instructions .Route 08/20/24 11/14/24 Rx .COMPLEX #90 tabs valacyclovir 500 mg tablet 500 mg PO DAILY PRN other #90 tabs 10/10/24 11/14/24 Rx escitalopram oxalate 5 mg tablet 2.5 mg PO DAILY 11/11/24 11/14/24 History (Lexapro) multivitamin (Daily Multi-Vitamin 1 tablet PO DAILY 11/11/24 11/14/24 History tablet) omeprazole 20 mg capsule,delayed 20 mg PO DAILY 11/11/24 11/14/24 History release lidocaine 5 % topical patch 1 patch topical Q24H 11/14/24 11/14/24 History Allergies Allergy/AdvReac Type Severity Reaction Status Date / Time diclofenac AdvReac Unknown unknown Verified 11/11/24 10:52 gluten AdvReac Unknown Unknown Verified 11/11/24 10:52 lactose AdvReac Unknown Unknown Verified 11/11/24 10:52 Vital Signs Vital Signs - 24 hr 11/15/24 13:31 11/15/24 19:51 11/15/24 20:00 Temperature 36.6 C 36.4 C Pulse Rate 70 81 81 Respiratory Rate 14 16 16 Blood Pressure 138/56 L 154/83 H Pulse Oximetry 94 95 95 Oxygen Delivery Room Air 11/16/24 03:57 11/16/24 09:30 Temperature 36.7 C Pulse Rate 77 71 Respiratory Rate 16 Blood Pressure 149/68 H 125/59 L Pulse Oximetry 96 95 Oxygen Delivery Exam Const: General: cooperative, no acute distress, alert, awake, ill appearing and tired appearing Nutritional Appearance: average body habitus Orientation/consciousness: patient oriented x3 and No confusion HENMT: Head: normocephalic and atraumatic Mouth: Yes Normal oral and palatal mucosa present Eyes: Conjunctivae: conjunctivae normal Pupils: Equal, round and reactive pupils present EOM: EOMs intact bilaterally Neck: Neck: normal visual inspection, no lymphadenopathy and nontender Resp: Effort & Inspection: normal respiratory effort Auscultation: clear to auscultation bilaterally Cardio: Rate: regular rate Rhythm: regular rhythm Heart sounds: no gallops, no murmurs and no rubs GI: Inspection: non-distended, scaphoid, no scars and no visible herniation GI Palp: Yes Soft to palpation, Yes Tenderness to palpation present (GI) (Right upper quadrant), Yes Guarding due to palpation present (GI), No Hepatomegaly present and No Splenomegaly present Auscultation: normal bowel sounds Skin: Lesions: no lesions Rashes: no rashes Neuro: General: no focal motor deficits and CN's II-XI intact bilaterally Cranial nerves: Yes Equal, round and reactive pupils present, Yes Bilaterally intact EOM present, Yes facial symmetry and Yes Midline tongue present Speech: normal speech Motor exam (neuro): 5/5 motor strength present throughout and Motor abnormalities not present Extrem: General: no clubbing, cyanosis or edema and edema Psych: Affect: normal affect Thought process: Normal thought process present Insight: Good insight present (Psych) Results Labs 11/16/24 04:51 11/16/24 04:51 Labs: Abnormal lab results 11/16/24 Range/Units 04:51 WBC 18.3 H (4.5-10.0) K/mm3 RBC 4.17 L (4.2-5.4) M/mm3 RDW 15.5 H (11.5-14.5) % MPV 10.6 H (7.4-10.4) fl Sodium 131 L (137-145) mmol/L Carbon Dioxide 21 L (22-30) mmol/L Anion Gap 3 L (4-12) mmol/L Creatinine 0.46 L (0.7-1.0) mg/dL Calcium 8.2 L (8.4-10.2) mg/dL Total Protein 5.5 L (6.3-8.2) g/dL Albumin 2.9 L (3.5-5.1) g/dL Diabetes panel 11/16/24 Range/Units 04:51 Sodium 131 L (137-145) mmol/L Potassium 3.6 (3.4-5.0) mmol/L Chloride 107 (98-107) mmol/L Carbon Dioxide 21 L (22-30) mmol/L BUN 10 (7-17) mg/dL Creatinine 0.46 L (0.7-1.0) mg/dL Glucose 84 (65-110) mg/dL Calcium 8.2 L (8.4-10.2) mg/dL AST 32 (14-36) U/L ALT 16 (6-35) U/L Alkaline Phosphatase 56 (38-126) U/L Total Protein 5.5 L (6.3-8.2) g/dL Albumin 2.9 L (3.5-5.1) g/dL Calcium panel 11/16/24 Range/Units 04:51 Calcium 8.2 L (8.4-10.2) mg/dL Albumin 2.9 L (3.5-5.1) g/dL Pituitary panel 11/16/24 Range/Units 04:51 Sodium 131 L (137-145) mmol/L Potassium 3.6 (3.4-5.0) mmol/L Chloride 107 (98-107) mmol/L Carbon Dioxide 21 L (22-30) mmol/L BUN 10 (7-17) mg/dL Creatinine 0.46 L (0.7-1.0) mg/dL Glucose 84 (65-110) mg/dL Calcium 8.2 L (8.4-10.2) mg/dL Adrenal panel 11/16/24 Range/Units 04:51 Sodium 131 L (137-145) mmol/L Potassium 3.6 (3.4-5.0) mmol/L Chloride 107 (98-107) mmol/L Carbon Dioxide 21 L (22-30) mmol/L BUN 10 (7-17) mg/dL Creatinine 0.46 L (0.7-1.0) mg/dL Glucose 84 (65-110) mg/dL Calcium 8.2 L (8.4-10.2) mg/dL Total Bilirubin 1.3 (0.2-1.3) mg/dL AST 32 (14-36) U/L ALT 16 (6-35) U/L Alkaline Phosphatase 56 (38-126) U/L Total Protein 5.5 L (6.3-8.2) g/dL Albumin 2.9 L (3.5-5.1) g/dL All other labs normal. Imaging Abdomen CT scan report/results: report reviewed and image reviewed CT scan - pelvis: report reviewed and image reviewed Abdominal ultrasound report/results: report reviewed
[2024-11-16 14:31] VITALS: BP 124/53; PULSE 72; RESP 16; TEMP 36.7; O2SAT 96
[2024-11-16] MEDS: KCL 20 MEQ/D5/0.9% SOD CHL 1,000 ML 100 ML IV CONT (15:00)
[2024-11-16] MEDS: LIDOCAINE 5% PATCH 1 PATCH TOPICAL (20:10)
[2024-11-16 21:48] VITALS: BP 145/66; PULSE 66; RESP 16; TEMP 36.5; O2SAT 97
[2024-11-17] VITALS (15 sets, daily range): BP systolic 94–144; BP diastolic 49–69; PULSE 60–77; RESP 12–21; TEMP 36.3–37.2; O2SAT 93–99
[2024-11-17] MEDS: ONDANSETRON INJ 4 MG/2 ML VIAL IV PUSH ×5 (04:25→23:39)
[2024-11-17] MEDS: MORPHINE SULFATE (*CRX) 2 MG/ML INJ IV PUSH ×3 (04:25→13:50)
[2024-11-17] MEDS: KCL 20 MEQ/D5/0.9% SOD CHL 1,000 ML 100 ML IV CONT ×2 (04:29→21:20)
[2024-11-17 04:32] LABS: Hematocrit 35.8 % (37.0-47.0); Hemoglobin 11.9 g/dL (12.0-15.0); Mean Corpuscular HGB Conc 33.2 g/dl (32-36); Mean Corpuscular Hemoglobin 30.3 pg (26-34); Mean Corpuscular Volume 91.1 fl (80-100); Platelet Count Result 169 k/mm3 (150-375); Red Blood Count 3.93 M/mm3 (4.2-5.4); White Blood Count 13.1 K/mm3 (4.5-10.0)
[2024-11-17 05:01] LABS: Alanine Aminotransferase 16 U/L (6-35); Albumin Level 2.6 g/dL (3.5-5.1); Alkaline Phosphatase 70 U/L (38-126); Anion Gap 2 mmol/L (4-12); Aspartate Amino Transferase 26 U/L (14-36); Bilirubin,Total 0.6 mg/dL (0.2-1.3); Blood Urea Nitrogen 9 mg/dL (7-17); Calcium 8.1 mg/dL (8.4-10.2); Carbon Dioxide 28 mmol/L (22-30); Chloride 107 mmol/L (98-107); Estimated CRCL calculation 68 ml/min; Estimated Glomerular Filt Rate > 60; Glucose 134 mg/dL (65-110); Lipase 45 U/L (23-300); Potassium 3.8 mmol/L (3.4-5.0); Sodium 137 mmol/L (137-145); Total Protein 5.2 g/dL (6.3-8.2)
[2024-11-17] MEDS: PIPERACILLIN/TAZOBACTAM SOD 3.375 GM in SODIUM CHLORIDE 0.9% IV 50 ML 100 ML IVPB ×2 (06:52→11:42)
[2024-11-17] MEDS: LEVOTHYROXINE SODIUM 100 MCG TABLET PO (06:52)
--- NOTE | 2024-11-17 07:21 | PM.IMPN ---
Progress Note: A&P Assessment and Plan (1) Pre-diabetes: Code(s): R73.03 - Prediabetes Status: Acute (2) Alcohol use: Code(s): F10.90 - Alcohol use, unspecified, uncomplicated Status: Acute (3) Anxiety with depression: Code(s): F41.8 - Other specified anxiety disorders Status: Acute (4) Rotator cuff tear arthropathy of both shoulders: Code(s): M75.101 - Unspecified rotator cuff tear or rupture of right shoulder, not specified as traumatic; M12.811 - Other specific arthropathies, not elsewhere classified, right shoulder; M12.812 - Other specific arthropathies, not elsewhere classified, left shoulder; M75.102 - Unspecified rotator cuff tear or rupture of left shoulder, not specified as traumatic Status: Acute (5) Hypertension: Qualifiers: Hypertension type: unspecified Qualified Code(s): I10 - Essential (primary) hypertension Code(s): I10 - Essential (primary) hypertension Status: Acute (6) Obesity: Code(s): E66.9 - Obesity, unspecified Status: Acute (7) Hypothyroidism, unspecified: Qualifiers: Hypothyroidism type: acquired Qualified Code(s): E03.9 - Hypothyroidism, unspecified Code(s): E03.9 - Hypothyroidism, unspecified Status: Chronic (8) Pancreatitis: Qualifiers: Acute pancreatitis complication: no infection or necrosis Chronicity: acute Pancreatitis type: unspecified pancreatitis type Qualified Code(s): K85.90 - Acute pancreatitis without necrosis or infection, unspecified Code(s): K85.90 - Acute pancreatitis without necrosis or infection, unspecified Status: Acute Plan Pancreatitis/acute cholecystitis 11/17: Laparoscopic cholecystectomy with intraoperative cholangiogram Satisfy the criteria : CT imaging and lipase Possible secondary to gall stone TG level normal Elevated liver enzyme Elevated lipase. Continue IV fluid, pain medication US concerning for acute cholecystitis. will get HIDA scan if GI recommends. GI and surgery team on board Continue monitor Clear liquid diet Pain control ordered Currently on Zosyn Hypothyroidism Levothyroxine HTN losartan kidney mass Found on CT. MRI as outpatient Subjective Date/time seen: 11/17/24 07:21 Interval history: HPI: Patient with history of HLD, HTN, hypothyroidism, gastritis presented with nausea vomiting and abdominal pain on 11/14.Patient notes yesterday around noon she started to have nausea vomiting after eating food. She also started to have epigastric pressure 3-8/10 pain. Pain is constant. Getting better with rest. Getting worse with palpation. Does not radiate.Patient takes atenolol for chronic pain. She drinks alcohol occasionally. Last drink was about 1 week ago. Review of previous chart shows she received cortisone shot in her shoulder on 11/11/2024. In ER vital signs was unremarkable except for blood pressure 178/99. Lab test WBC 17.5, hemoglobin 17.2. Mildly elevated liver enzyme. Lipase 3343. CT showed:Diffuse wall thickening and surrounding fat stranding around the stomach, duodenum and proximal jejunum. Findings are concerning for gastroenteritis. 2. 5 mm calculus in right kidney. Mild hydroureteronephrosis without obstructive calculus. 3. 1.1 cm mass in left kidney, incompletely evaluated on current examination. Correlate with prior imaging if available to document stability otherwise renal mass protocol MRI or CT is recommended for further evaluation. US concerning for acute cholecystitis. will get HIDA scan. GI and surgery team onboard clear liquid diet and possible EGD on Monday if she stay in the hospital . 11/16: The patient is admitted in the setting of pancreatitis, acute cholecystitis and cholelithiasis. Surgery evaluated the patient advised to continue IV antibiotics, IV analgesic and IV fluid and possibly laparoscopic cholecystectomy once a pancreatitis resolves. Of note patient has a history of duodenal ulcer. Patient was evaluated by GI agrees with the pancreatitis and laparoscopic cholecystectomy once the acute episode has resolved. 11/17: Patient underwent today Laparoscopic cholecystectomy with intraoperative cholangiogram. Patient is feeling ok. Will start on clear liquid diet as per surgery Review of Systems Review of Systems: All systems reviewed & are unremarkable except as noted in HPI and below Exam Narrative: General appearance: Well-developed, well-nourished Skin: Normal color Head: Normocephalic, nontraumatic Eyes: Clear conjunctiva ENT: dry oral cavity Neck: Supple, nontender Chest and respiratory: Airway patent, no respiratory distress, no accessory muscle use Heart: Regular rate/rhythm Abdomen: Soft, epigastric tenderness, no organomegaly, quiet bowel sounds Vascular: Normal peripheral pulses, normal capillary refill. Musculoskeletal: Normal range of motion, nontender back Neurologic: Alert and oriented ?3, ENGINEER SYSTEM ADMINISTRATOR is normal as tested, no gross motor deficit Objective Data Vital Signs Vital Signs: Vital Signs - 24 hr 11/16/24 08:00 11/16/24 09:30 11/16/24 14:31 Temperature 98.0 F Pulse Rate 71 72 Respiratory Rate 16 Blood Pressure 125/59 L 124/53 L Pulse Oximetry 95 96 Oxygen Delivery Room Air 11/16/24 20:00 11/16/24 21:48 11/17/24 06:00 Temperature 97.7 F 98.4 F Pulse Rate 66 68 Respiratory Rate 16 14 Blood Pressure 145/66 H 137/69 Pulse Oximetry 97 96 Oxygen Delivery Room Air Intake/Output Intake/Output: Intake & Output 11/14/24 11/15/24 11/16/24 11/17/24 23:59 23:59 23:59 23:59 Intake Total 1300 3821 2256 1300 Balance 1300 3821 2256 1300 Meds/Results Medications: Active Medications Generic Name Dose Route Start Last Admin Trade Name Freq PRN Reason Stop Dose Admin Atorvastatin Calcium 10 mg 11/15/24 12:00 11/16/24 09:28 Atorvastatin 10 Mg Tablet PO 10 mg DAILY JUNIE Administration Baclofen 20 mg 11/15/24 13:00 11/16/24 17:18 Baclofen 10 Mg Tablet PO 20 mg TID JUNIE Administration Calcium Carbonate 500 mg 11/16/24 09:00 11/16/24 10:12 Calcium/Vitamin D 500 Mg/5 Mcg (200 I.U.) Tablet PO 500 mg DAILY JUNIE Administration Enoxaparin Sodium 40 mg 11/16/24 09:00 11/16/24 10:12 Enoxaparin 40 Mg/0.4 Ml Syringe SUB-Q 40 mg DAILY JUNIE Administration Escitalopram Oxalate 2.5 mg 11/16/24 09:00 11/16/24 09:29 Escitalopram Oxalate 2.5 Mg Tablet PO 2.5 mg DAILY JUNIE Administration Fluticasone Propionate 1 spray 11/15/24 11:37 Fluticasone Propionate 0.05% Na Spr 16 Gm Btl (*Bkc) NASAL DAILY PRN Allergy Symptoms Hydralazine HCl 10 mg 11/14/24 11:50 Hydralazine Hcl 20 Mg/Ml Vial IV PUSH Q8H PRN Blood Pressure - High SBP>180 Potassium Chloride/Dextrose/Sod Cl 1,000 mls @ 100 mls/hr 11/16/24 08:00 11/17/24 04:29 Kcl 20 Meq/D5/0.9% Sod Chl IV CONT 100 mls/hr .Q10H JUNIE Administration Piperacillin Sod/Tazobactam 50 mls @ 100 mls/hr 11/16/24 08:00 11/17/24 06:52 Sod 3.375 gm/ Sodium Chloride IVPB 100 mls/hr Q6HR JUNIE Administration Levothyroxine Sodium 100 mcg 11/16/24 06:30 11/17/24 06:52 Levothyroxine Sodium 100 Mcg Tablet PO 100 mcg DAILY@0630 JUNIE Administration Lidocaine 1 patch 11/15/24 21:00 11/16/24 20:10 Lidocaine 5% Patch TOPICAL 1 patch QHS JUNIE Administration Liothyronine Sodium 5 mcg 11/16/24 09:00 11/16/24 09:29 Liothyronine Sodium 5 Mcg Tablet PO 5 mcg DAILY JUNIE Administration Losartan Potassium 100 mg 11/16/24 09:00 11/16/24 09:29 Losartan Potassium 100 Mg Tablet PO 100 mg DAILY JUNIE Administration Magnesium Oxide 600 mg 11/15/24 13:10 Magnesium Oxide 200 Mg Tablet PO DAILY PRN leg cramps Melatonin 10 mg 11/15/24 21:00 11/16/24 20:25 Melatonin 5 Mg Tablet PO Not Given QHS [facility] Morphine Sulfate 2 mg 11/14/24 11:36 11/17/24 04:25 Morphine Sulfate (*Crx) 2 Mg/Ml Inj IV PUSH 2 mg Q4H PRN Administration Pain Rated 7-10 Multivitamins Therapeutic 1 tablet 11/16/24 09:00 11/16/24 09:29 Multivitamins Therapeutic Tab (*Bkc) PO 1 tablet DAILY [facility] Administration Non-Formulary Medication 1 drop 11/15/24 17:00 11/16/24 17:21 Lifitegrast [Xiidra] EACH EYE 12/15/24 16:59 1 drop BID JUNIE Administration Olopatadine HCl 1 drop 11/16/24 09:00 11/16/24 09:30 Olopatadine 0.1% Ophth Soln 5 Ml Btl EACH EYE 1 drop DAILY JUNIE Administration Ondansetron HCl 4 mg 11/14/24 09:46 11/17/24 04:25 Ondansetron Inj 4 Mg/2 Ml Vial IV PUSH 4 mg Q4H PRN Administration Nausea Oxycodone/Acetaminophen 0.5 tablet 11/15/24 11:37 Oxycodone/Acetaminophen (*Crx) 5-325 Mg Tablet PO DAILY PRN Pain 4-6 Pantoprazole Sodium 40 mg 11/16/24 09:00 Pantoprazole 40 Mg Tablet PO On Hold: 11/16/24 09:00 QAM [facility] Comment: PT CURRENTLY ON IV PANTOPRAZOLE Valacyclovir HCl 500 mg 11/15/24 11:37 Valacyclovir Hcl 500 Mg Tablet PO DAILY PRN other Radiology Results: ITS Impressions Abdomen/Pelvis CT 11/14/24 08:53 IMPRESSION: 1. Diffuse wall thickening and surrounding fat stranding around the stomach, duodenum and proximal jejunum. Findings are concerning for gastroenteritis. 2. 5 mm calculus in right kidney. Mild hydroureteronephrosis without obstructive calculus. 3. 1.1 cm mass in left kidney, incompletely evaluated on current examination. Correlate with prior imaging if available to document stability otherwise renal mass protocol MRI or CT is recommended for further evaluation. Abdomen Ultrasound 11/14/24 15:35 IMPRESSION: 1: Visualized pancreas is heterogeneous with a small amount of surrounding peripancreatic fluid. Findings are concerning for acute pancreatitis. Correlate clinically. Recommend follow-up to resolution. 2. Cholelithiasis. 3. Multiple right renal cysts. 4. Positive Mojica's sign according to the technologist was suggest the possibility of acute cholecystitis. Gallbladder wall is mildly thickened. If of concern, consider a HIDA scan. Labs Labs: Laboratory Results - last 24 hr 11/16/24 11/17/24 04:51 04:26 WBC 13.1 H RBC 3.93 L Hgb 11.9 L Hct 35.8 L MCV 91.1 MCH 30.3 MCHC 33.2 RDW 15.1 H Plt Count 169 MPV 10.6 H Sodium 137 Potassium 3.8 Chloride 107 Carbon Dioxide 28 Anion Gap 2 L BUN 9 Creatinine 0.56 L Estim Creat Clear Calc 68 Estimated GFR > 60 Glucose 134 H Calcium 8.1 L Total Bilirubin 0.6 AST 26 ALT 16 Alkaline Phosphatase 70 Total Protein 5.2 L Albumin 2.6 L Lipase 74 45 Hospitalist [facility] Advance Care Plan I have confirmed that the patient's Advanced Care Plan is present, code status is documented, or surrogate decision maker is listed in patient medical record.: Yes Medication Reconciliation I have utilized all available resources to obtain, update and review the patients current medications (includes all prescriptions, OTC, herbals, cannabis, and nutritional supplements).: Yes
--- NOTE | 2024-11-17 08:23 | P.PNGS_ITS ---
Progress Note: A&P Assessment and Plan (1) Cholelithiasis with acute on chronic cholecystitis: Code(s): K80.12 - Calculus of gallbladder with acute and chronic cholecystitis without obstruction Status: Acute Assessment and Plan: Although patient ate fairly well yesterday, she still continues to have severe right upper quadrant pain associated with tenderness over her gallbladder. We will go ahead today with laparoscopic cholecystectomy. She presented with evidence of pancreatitis so we will also perform intraoperative cholangiogram. I have discussed the procedure before with the patient. She had no questions this morning. We will plan to go ahead a little later this morning. (2) Pancreatitis: Qualifiers: Chronicity: acute Pancreatitis type: unspecified pancreatitis type Acute pancreatitis complication: no infection or necrosis Qualified Code(s): K85.90 - Acute pancreatitis without necrosis or infection, unspecified Code(s): K85.90 - Acute pancreatitis without necrosis or infection, unspecified Status: Acute Assessment and Plan: Probably not from common bile duct stone but will do intraoperative cholangiogram to check. Subjective Subjective Date/Time Seen: 11/17/24 08:23 Patient reports: still having pain (Patient had to have morphine injections again last night), voiding w/o difficulty and afebrile Review of Systems Review of Systems: All systems reviewed & are unremarkable except as noted in HPI and below (HPI) Exam Const: General: cooperative, no acute distress, awake, ill appearing and tired appearing; No comfortable Nutritional Appearance: average body habitus Orientation/consciousness: patient oriented x3 GI: Inspection: non-distended and scaphoid GI Palp: Yes Soft to palpation, Yes Tenderness to palpation present (GI) (Right upper quadrant) and Yes Guarding due to palpation present (GI) Auscultation: normal bowel sounds Neuro: General: patient oriented x3 and no focal motor deficits Psych: Affect: normal affect Insight: Good insight present (Psych) Judgement: Good judgement present (Psych) Objective Data Vital Signs Vital Signs: Vital Signs - 24 hr 11/16/24 09:30 11/16/24 14:31 11/16/24 20:00 Temperature 36.7 C Pulse Rate 71 72 Respiratory Rate 16 Blood Pressure 125/59 L 124/53 L Pulse Oximetry 95 96 Oxygen Delivery Room Air 11/16/24 21:48 11/17/24 06:00 Temperature 36.5 C 36.9 C Pulse Rate 66 68 Respiratory Rate 16 14 Blood Pressure 145/66 H 137/69 Pulse Oximetry 97 96 Oxygen Delivery Intake/Output Intake/Output: Intake & Output 11/14/24 11/15/24 11/16/24 11/17/24 23:59 23:59 23:59 23:59 Intake Total 1300 3821 2256 1300 Balance 1300 3821 2256 1300 Meds/Results Medications: Active Medications Generic Name Dose Route Start Last Admin Trade Name Mariana PRN Reason Stop Dose Admin Atorvastatin Calcium 10 mg 11/15/24 12:00 11/16/24 09:28 Atorvastatin 10 Mg Tablet PO 10 mg DAILY UJNIE Administration Baclofen 20 mg 11/15/24 13:00 11/16/24 17:18 Baclofen 10 Mg Tablet PO 20 mg TID JUNIE Administration Calcium Carbonate 500 mg 11/16/24 09:00 11/16/24 10:12 Calcium/Vitamin D 500 Mg/5 Mcg (200 I.U.) Tablet PO 500 mg DAILY JUNIE Administration Enoxaparin Sodium 40 mg 11/16/24 09:00 11/16/24 10:12 Enoxaparin 40 Mg/0.4 Ml Syringe SUB-Q 40 mg DAILY JUNIE Administration Escitalopram Oxalate 2.5 mg 11/16/24 09:00 11/16/24 09:29 Escitalopram Oxalate 2.5 Mg Tablet PO 2.5 mg DAILY JUNIE Administration Fluticasone Propionate 1 spray 11/15/24 11:37 Fluticasone Propionate 0.05% Na Spr 16 Gm Btl (*Bkc) NASAL DAILY PRN Allergy Symptoms Hydralazine HCl 10 mg 11/14/24 11:50 Hydralazine Hcl 20 Mg/Ml Vial IV PUSH Q8H PRN Blood Pressure - High SBP>180 Potassium Chloride/Dextrose/Sod Cl 1,000 mls @ 100 mls/hr 11/16/24 08:00 11/17/24 04:29 Kcl 20 Meq/D5/0.9% Sod Chl IV CONT 100 mls/hr .Q10H JUNIE Administration Piperacillin Sod/Tazobactam 50 mls @ 100 mls/hr 11/16/24 08:00 11/17/24 06:52 Sod 3.375 gm/ Sodium Chloride IVPB 100 mls/hr Q6HR JUNIE Administration Levothyroxine Sodium 100 mcg 11/16/24 06:30 11/17/24 06:52 Levothyroxine Sodium 100 Mcg Tablet PO 100 mcg DAILY@0630 [facility] Administration Lidocaine 1 patch 11/15/24 21:00 11/16/24 20:10 Lidocaine 5% Patch TOPICAL 1 patch QHS [facility] Administration Liothyronine Sodium 5 mcg 11/16/24 09:00 11/16/24 09:29 Liothyronine Sodium 5 Mcg Tablet PO 5 mcg DAILY JUNIE Administration Losartan Potassium 100 mg 11/16/24 09:00 11/16/24 09:29 Losartan Potassium 100 Mg Tablet PO 100 mg DAILY JUNIE Administration Magnesium Oxide 600 mg 11/15/24 13:10 Magnesium Oxide 200 Mg Tablet PO DAILY PRN leg cramps Melatonin 10 mg 11/15/24 21:00 11/16/24 20:25 Melatonin 5 Mg Tablet PO Not Given QHS [facility] Morphine Sulfate 2 mg 11/14/24 11:36 11/17/24 04:25 Morphine Sulfate (*Crx) 2 Mg/Ml Inj IV PUSH 2 mg Q4H PRN Administration Pain Rated 7-10 Multivitamins Therapeutic 1 tablet 11/16/24 09:00 11/16/24 09:29 Multivitamins Therapeutic Tab (*Bkc) PO 1 tablet DAILY [facility] Administration Non-Formulary Medication 1 drop 11/15/24 17:00 11/16/24 17:21 Lifitegrast [Xiidra] EACH EYE 12/15/24 16:59 1 drop BID [facility] Administration Olopatadine HCl 1 drop 11/16/24 09:00 11/16/24 09:30 Olopatadine 0.1% Ophth Soln 5 Ml Btl EACH EYE 1 drop DAILY [facility] Administration Ondansetron HCl 4 mg 11/14/24 09:46 11/17/24 04:25 Ondansetron Inj 4 Mg/2 Ml Vial IV PUSH 4 mg Q4H PRN Administration Nausea Oxycodone/Acetaminophen 0.5 tablet 11/15/24 11:37 Oxycodone/Acetaminophen (*Crx) 5-325 Mg Tablet PO DAILY PRN Pain 4-6 Pantoprazole Sodium 40 mg 11/16/24 09:00 Pantoprazole 40 Mg Tablet PO On Hold: 11/16/24 09:00 QAM [facility] Comment: PT CURRENTLY ON IV PANTOPRAZOLE Valacyclovir HCl 500 mg 11/15/24 11:37 Valacyclovir Hcl 500 Mg Tablet PO DAILY PRN other Radiology Results: ITS Impressions Abdomen/Pelvis CT 11/14/24 08:53 IMPRESSION: 1. Diffuse wall thickening and surrounding fat stranding around the stomach, duodenum and proximal jejunum. Findings are concerning for gastroenteritis. 2. 5 mm calculus in right kidney. Mild hydroureteronephrosis without obstructive calculus. 3. 1.1 cm mass in left kidney, incompletely evaluated on current examination. Correlate with prior imaging if available to document stability otherwise renal mass protocol MRI or CT is recommended for further evaluation. Abdomen Ultrasound 11/14/24 15:35 IMPRESSION: 1: Visualized pancreas is heterogeneous with a small amount of surrounding peripancreatic fluid. Findings are concerning for acute pancreatitis. Correlate clinically. Recommend follow-up to resolution. 2. Cholelithiasis. 3. Multiple right renal cysts. 4. Positive Mojica's sign according to the technologist was suggest the possibility of acute cholecystitis. Gallbladder wall is mildly thickened. If of concern, consider a HIDA scan. Labs Labs: Laboratory Results - last 24 hr 11/17/24 04:26 WBC 13.1 H RBC 3.93 L Hgb 11.9 L Hct 35.8 L MCV 91.1 MCH 30.3 MCHC 33.2 RDW 15.1 H Plt Count 169 MPV 10.6 H Sodium 137 Potassium 3.8 Chloride 107 Carbon Dioxide 28 Anion Gap 2 L BUN 9 Creatinine 0.56 L Estim Creat Clear Calc 68 Estimated GFR > 60 Glucose 134 H Calcium 8.1 L Total Bilirubin 0.6 AST 26 ALT 16 Alkaline Phosphatase 70 Total Protein 5.2 L Albumin 2.6 L Lipase 45
[2024-11-17] MEDS: LIFITEGRAST 5% EACH EYE (09:08)
[2024-11-17] MEDS: LIOTHYRONINE SODIUM 5 MCG TABLET PO (09:08)
[2024-11-17] MEDS: [UNRECOGNIZED DRUG - OTHER] EACH EYE (09:08)
--- NOTE | 2024-11-17 09:54 | WPDANESEPPF ---
Anes - Initial Pre Proc Eval Procedure: Operation Date: 11/17/24 10:30 Proposed Procedures p Laparoscopic Cholecystectomy - Jimmy Simental MD Date/Time: 11/17/24 09:54 Surgeon: Sarah Mae MD Pre Op Diagnosis: acute pancreatitis Patient Data Age: 74 Gender: F Height: 1.57 m Weight: 74.2 kg Last Vital Signs Temp 36.9 C 11/17/24 06:00 Pulse 68 11/17/24 06:00 Resp 14 11/17/24 06:00 BP 137/69 11/17/24 06:00 Pulse Ox 96 11/17/24 06:00 O2 Del Method Room Air 11/16/24 20:00 Allergies Allergy/AdvReac Type Severity Reaction Status Date / Time diclofenac AdvReac Unknown unknown Verified 11/11/24 10:52 gluten AdvReac Unknown Unknown Verified 11/11/24 10:52 lactose AdvReac Unknown Unknown Verified 11/11/24 10:52 Home Medications ?Medication ?Instructions ?Recorded ?Confirmed ?Type baclofen 20 mg tablet 20 mg PO TID 09/01/20 11/14/24 History ascorbic acid (vitamin C) 500 mg 500 mg PO DAILY 09/07/21 11/14/24 History capsule calcium 500 mg (as 1 tablet PO DAILY 09/07/21 11/14/24 History carbonate)-vitamin D3 10 mcg (400 unit) tablet fluticasone propionate 50 1 spray intranasal DAILY PRN 09/07/21 11/14/24 History mcg/actuation nasal Allergy Symptoms spray,suspension (Allergy Relief (fluticasone)) magnesium 30 mg tablet 30 mg PO DAILY 09/07/21 11/14/24 History olopatadine 0.1 % eye drops 1 drp EACH EYE DAILY 09/07/21 11/14/24 History lifitegrast 5 % eye drops in a 1 drp EACH EYE BID 12/20/21 11/14/24 History dropperette (Xiidra) melatonin 10 mg capsule 10 mg PO QHS 09/12/22 11/14/24 History atorvastatin 10 mg tablet See Rx Instructions .Route 10/31/23 11/14/24 Rx .COMPLEX #90 tabs losartan 100 mg tablet 100 mg PO DAILY #90 tabs 10/31/23 11/14/24 Rx levothyroxine 100 mcg tablet 100 mcg PO DAILY #90 tabs 03/04/25 08/21/25 Rx oxycodone-acetaminophen 5 mg-325 0.5 tablet PO DAILY PRN pain 06/07/24 11/14/24 History mg tablet (Percocet) liothyronine 5 mcg tablet See Rx Instructions .Route 08/20/24 11/14/24 Rx .COMPLEX #90 tabs valacyclovir 500 mg tablet 500 mg PO DAILY PRN other #90 tabs 10/10/24 11/14/24 Rx escitalopram oxalate 5 mg tablet 2.5 mg PO DAILY 11/11/24 11/14/24 History (Lexapro) multivitamin (Daily Multi-Vitamin 1 tablet PO DAILY 11/11/24 11/14/24 History tablet) omeprazole 20 mg capsule,delayed 20 mg PO DAILY 11/11/24 11/14/24 History release lidocaine 5 % topical patch 1 patch topical Q24H 11/14/24 11/14/24 History Laboratory Tests 11/17/24 04:26 WBC 13.1 H K/mm3 (4.5-10.0) RBC 3.93 L M/mm3 (4.2-5.4) Hgb 11.9 L g/dL (12.0-15.0) Hct 35.8 L % (37.0-47.0) MCV 91.1 fl (80-100) MCH 30.3 pg (26-34) MCHC 33.2 g/dl (32-36) RDW 15.1 H % (11.5-14.5) Plt Count 169 k/mm3 (150-375) MPV 10.6 H fl (7.4-10.4) Sodium 137 mmol/L (137-145) Potassium 3.8 mmol/L (3.4-5.0) Chloride 107 mmol/L (98-107) Carbon Dioxide 28 mmol/L (22-30) Anion Gap 2 L mmol/L (4-12) BUN 9 mg/dL (7-17) Creatinine 0.56 L mg/dL (0.7-1.0) Estim Creat Clear Calc 68 ml/min Estimated GFR > 60 (59 - ) Glucose 134 H mg/dL (65-110) Calcium 8.1 L mg/dL (8.4-10.2) Total Bilirubin 0.6 mg/dL (0.2-1.3) AST 26 U/L (14-36) ALT 16 U/L (6-35) Alkaline Phosphatase 70 U/L (38-126) Total Protein 5.2 L g/dL (6.3-8.2) Albumin 2.6 L g/dL (3.5-5.1) Lipase 45 U/L (23-300) Patient hx anesthesia problems: none Family hx anesthesia problems: none Results Review: All pre-operative results and documents have been reviewed as part of the pre-operative evaluation. 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 Graves disease Obesity Hypothyroidism, unspecified Rotator cuff dysfunction Ovary removal, prophylactic Surgical History Surgical History H/O radioactive iodine thyroid ablation Hx of tonsillectomy History of carpal tunnel release Family History Family History Other Diabetes mellitus Family history of alcoholism Social History Social History Smoking status: Never smoker Alcohol intake: current Alcohol use details: maybe 1 glass of wine per month Substance use: never Do You Feel Safe in your Home?: Yes Lack of Transportation: No Lack of Food: Never True Current Housing: I Have Housing Concerned About Future Housing: No Difficulty Paying Gas/Electric Bills: No Difficulty Paying for Meds: No Currently Unemployed: No Education: Associate Degree Difficulty w/ Childcare or Family Care: No Living arrangements: with family Spiritual care concerns: No Anes - Eval Final PreProcedure Day of Procedure 11/17/24 09:54 Patient weight: obese Heart: regular rate and rhythm Lungs: clear to auscultation Airway: Mallampati scale class II Neurological: alert and oriented Last oral intake: >/= 8 hours ASA classification: III Emergent: no Anesthetic plan: proceed Anesthesia type and monitoring: general ETT and standard monitoring Results Review: All pre-operative results and documents have been reviewed as part of the pre-operative evaluation. Informed Consent: The patient's anesthetic plan and its attendant risks and benefits were discussed with the patient/family/POA. Questions were solicited and answers provided to the satisfaction of the patient/family/POA.
--- NOTE | 2024-11-17 10:17 | WPDHPUPDATE1 ---
History and Physical Update Update Date/Time: 11/17/24 10:17 History and Physical has been reviewed, including an updated exam of the patient. There are NO changes in the patient's condition. Risks, benefits, and alternatives have been discussed and questions answered. Patient agrees to proceed with procedure.
--- NOTE | 2024-11-17 10:37 | WPDGIPROGNO ---
Progress Note: A&P Assessment and Plan (1) Acute pancreatitis: Qualifiers: Acute pancreatitis complication: no infection or necrosis Pancreatitis type: biliary Qualified Code(s): K85.10 - Biliary acute pancreatitis without necrosis or infection Code(s): K85.90 - Acute pancreatitis without necrosis or infection, unspecified Status: Acute Assessment and Plan: The patient's acute biliary pancreatitis has clinically and biochemically resolved. She is in the operating room for a laparoscopic cholecystectomy and intraoperative cholangiogram. I will be vigilant for choledocholithiasis, and a post-op ERCP will be performed if it is found during intraoperative cholangiogram. Subjective Date/time seen: 11/17/24 10:37 Objective Data Vital Signs Vital Signs: Vital Signs - 24 hr 11/16/24 14:31 11/16/24 20:00 11/16/24 21:48 Temperature 98.0 F 97.7 F Pulse Rate 72 66 Respiratory Rate 16 16 Blood Pressure 124/53 L 145/66 H Pulse Oximetry 96 97 Oxygen Delivery Room Air 11/17/24 06:00 Temperature 98.4 F Pulse Rate 68 Respiratory Rate 14 Blood Pressure 137/69 Pulse Oximetry 96 Oxygen Delivery Intake/Output Intake/Output: Intake & Output 11/14/24 11/15/24 11/16/24 11/17/24 23:59 23:59 23:59 23:59 Intake Total 1300 3821 2256 1300 Balance 1300 3821 2256 1300 Meds/Results Medications: Active Medications Generic Name Dose Route Start Last Admin Trade Name Freq PRN Reason Stop Dose Admin Atorvastatin Calcium 10 mg 11/15/24 12:00 11/16/24 09:28 Atorvastatin 10 Mg Tablet PO 10 mg DAILY JUNIE Administration Baclofen 20 mg 11/15/24 13:00 11/16/24 17:18 Baclofen 10 Mg Tablet PO 20 mg TID JUNIE Administration Calcium Carbonate 500 mg 11/16/24 09:00 11/16/24 10:12 Calcium/Vitamin D 500 Mg/5 Mcg (200 I.U.) Tablet PO 500 mg DAILY JUNIE Administration Enoxaparin Sodium 40 mg 11/16/24 09:00 11/16/24 10:12 Enoxaparin 40 Mg/0.4 Ml Syringe SUB-Q 40 mg DAILY JUNIE Administration Escitalopram Oxalate 2.5 mg 11/16/24 09:00 11/16/24 09:29 Escitalopram Oxalate 2.5 Mg Tablet PO 2.5 mg DAILY JUNIE Administration Fluticasone Propionate 1 spray 11/15/24 11:37 Fluticasone Propionate 0.05% Na Spr 16 Gm Btl (*Bkc) NASAL DAILY PRN Allergy Symptoms Hydralazine HCl 10 mg 11/14/24 11:50 Hydralazine Hcl 20 Mg/Ml Vial IV PUSH Q8H PRN Blood Pressure - High SBP>180 Potassium Chloride/Dextrose/Sod Cl 1,000 mls @ 100 mls/hr 11/16/24 08:00 11/17/24 04:29 Kcl 20 Meq/D5/0.9% Sod Chl IV CONT 100 mls/hr .Q10H JUNIE Administration Piperacillin Sod/Tazobactam 50 mls @ 100 mls/hr 11/16/24 08:00 11/17/24 06:52 Sod 3.375 gm/ Sodium Chloride IVPB 100 mls/hr Q6HR JUNIE Administration Levothyroxine Sodium 100 mcg 11/16/24 06:30 11/17/24 06:52 Levothyroxine Sodium 100 Mcg Tablet PO 100 mcg DAILY@0630 JUNIE Administration Lidocaine 1 patch 11/15/24 21:00 11/16/24 20:10 Lidocaine 5% Patch TOPICAL 1 patch QHS JUNIE Administration Liothyronine Sodium 5 mcg 11/16/24 09:00 11/17/24 09:08 Liothyronine Sodium 5 Mcg Tablet PO 5 mcg DAILY JUNIE Administration Losartan Potassium 100 mg 11/16/24 09:00 11/16/24 09:29 Losartan Potassium 100 Mg Tablet PO 100 mg DAILY JUNIE Administration Magnesium Oxide 600 mg 11/15/24 13:10 Magnesium Oxide 200 Mg Tablet PO DAILY PRN leg cramps Melatonin 10 mg 11/15/24 21:00 11/16/24 20:25 Melatonin 5 Mg Tablet PO Not Given QHS JUNIE Morphine Sulfate 2 mg 11/14/24 11:36 11/17/24 09:07 Morphine Sulfate (*Crx) 2 Mg/Ml Inj IV PUSH 2 mg Q4H PRN Administration Pain Rated 7-10 Multivitamins Therapeutic 1 tablet 11/16/24 09:00 11/16/24 09:29 Multivitamins Therapeutic Tab (*Bkc) PO 1 tablet DAILY JUNIE Administration Non-Formulary Medication 1 drop 11/15/24 17:00 11/17/24 09:08 Lifitegrast [Xiidra] EACH EYE 12/15/24 16:59 1 drop BID JUNIE Administration Olopatadine HCl 1 drop 11/16/24 09:00 11/16/24 09:30 Olopatadine 0.1% Ophth Soln 5 Ml Btl EACH EYE 1 drop DAILY JUNIE Administration Ondansetron HCl 4 mg 11/14/24 09:46 11/17/24 09:07 Ondansetron Inj 4 Mg/2 Ml Vial IV PUSH 4 mg Q4H PRN Administration Nausea Oxycodone/Acetaminophen 0.5 tablet 11/15/24 11:37 Oxycodone/Acetaminophen (*Crx) 5-325 Mg Tablet PO DAILY PRN Pain 4-6 Pantoprazole Sodium 40 mg 11/16/24 09:00 Pantoprazole 40 Mg Tablet PO On Hold: 11/16/24 09:00 QAM [facility] Comment: PT CURRENTLY ON IV PANTOPRAZOLE Valacyclovir HCl 500 mg 11/15/24 11:37 Valacyclovir Hcl 500 Mg Tablet PO DAILY PRN other Radiology Results: ITS Impressions Abdomen/Pelvis CT 11/14/24 08:53 IMPRESSION: 1. Diffuse wall thickening and surrounding fat stranding around the stomach, duodenum and proximal jejunum. Findings are concerning for gastroenteritis. 2. 5 mm calculus in right kidney. Mild hydroureteronephrosis without obstructive calculus. 3. 1.1 cm mass in left kidney, incompletely evaluated on current examination. Correlate with prior imaging if available to document stability otherwise renal mass protocol MRI or CT is recommended for further evaluation. Abdomen Ultrasound 11/14/24 15:35 IMPRESSION: 1: Visualized pancreas is heterogeneous with a small amount of surrounding peripancreatic fluid. Findings are concerning for acute pancreatitis. Correlate clinically. Recommend follow-up to resolution. 2. Cholelithiasis. 3. Multiple right renal cysts. 4. Positive Mojica's sign according to the technologist was suggest the possibility of acute cholecystitis. Gallbladder wall is mildly thickened. If of concern, consider a HIDA scan. Labs Labs: Laboratory Results - last 24 hr 11/17/24 04:26 WBC 13.1 H RBC 3.93 L Hgb 11.9 L Hct 35.8 L MCV 91.1 MCH 30.3 MCHC 33.2 RDW 15.1 H Plt Count 169 MPV 10.6 H Sodium 137 Potassium 3.8 Chloride 107 Carbon Dioxide 28 Anion Gap 2 L BUN 9 Creatinine 0.56 L Estim Creat Clear Calc 68 Estimated GFR > 60 Glucose 134 H Calcium 8.1 L Total Bilirubin 0.6 AST 26 ALT 16 Alkaline Phosphatase 70 Total Protein 5.2 L Albumin 2.6 L Lipase 45
[2024-11-17] MEDS: BUPIVACAINE/EPINEPHRINE 0.5% 50 ML VIAL 30 ML INFILTRATE (11:00)
--- NOTE | 2024-11-17 11:44 | S_PTH ---
PATIENT: Lawanda Worthy LOC: [id number] U#:[id number] AGE/SX: 74/F ROOM: 252 RE11/14/[address]: Reggie Rojas MD : [id number] BED: 01 DIS: 11/18/2024 SPEC #: [id number] RECD: 11/18/24 07:58 STATUS: CAROLEE REChito #: [id number] ALVARO: 11/17/24 11:[address]: Jimmy Simental DEPT: [facility] Surgical RECD BY: Lani Medina ENTERED: 11/18/24 07:58 SP TYPE: Surgical OTHR DR: MD Nadia Haile MD Lindsey M. 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
[2024-11-17] MEDS: LACTATED RINGERS 1,000 ML 30 ML IV CONT (12:03)
--- NOTE | 2024-11-17 12:05 | P.OP_ITS ---
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 Ultrasound showed gallstones and a positive sonographic Mojica sign. She had an amylase of 3300 on admission. Ultrasound also showed some fluid around the head of the pancreas with some heterogeneous pancreatic tissue. She was started on antibiotics for cholecystitis. She received pain medication and bowel rest for pancreatitis and cholecystitis. Her serum lipase returned to normal. She has continued to have severe right upper quadrant pain with tenderness which requires her to take narcotic pain medication around the clock. She is taken to surgery now for laparoscopic cholecystectomy with intraoperative cholangiogram. Findings There was acute inflammation noted. There was bloody ascites around the gallbladder and the liver edge. I did not see any signs of gallbladder perforation. This may have been from her pancreatitis. The intraoperative cholangiogram was normal. Patient had an abnormally large lateral segment to the left lobe of her liver that wrapped around the falciform and came nearly to lie up against the gallbladder. Liver did appear normal. Gallbladder was edematous with wall thickening. Stones were noted but the gallbladder was not opened. Description of Procedure Patient was taken to surgery and induced into general anesthesia. The abdomen is prepped and draped. Trocars were placed in the usual fashion using 0.5% Marcaine with epinephrine and applied Medical optical trocars. Once all trocars were placed and we were able to review the liver and gallbladder, a 5th trocar was placed in the left mid abdomen to facilitate retraction of the lateral segment of the left lobe of the liver for better visualization of the gallbladder and ductal structures. We freed the gallbladder from some superficial adhesions. A laparoscopic aspirator was then used and the gallbladder was decompressed. A Vicryl endoloop was used to ligate the cholecystotomy. We then retracted the gallbladder and took down additional adhesions to the underside of the right lobe of the liver and the gallbladder. Eventually we were able to retract the gallbladder adequately so that the infundibulum could be retracted. Careful dissection was then carried out freeing adhesions and inflammatory tissue from the lower gallbladder as well as from the cystic duct and cystic artery. Both the cystic duct and cystic artery were longer than usual. After adequate dissection including dissection of the gallbladder off the liver over its lower half, I securely clipped and divided the cystic artery. I placed a clip on the proximal cystic duct or distal gallbladder. Cystic duct scissors were then used and a small opening was made in the proximal cystic duct. The cholangiogram catheter was then threaded into the cystic duct. Cine fluoroscopy was brought into the field and positioned appropriately. We then used cine fluoroscopy to perform intraoperative cholangiography. The cholangiogram was normal by my review. Dr. Schultz, radiologist, read this as well and felt that it was normal. The cholangiogram catheter was removed. The cystic duct was securely clipped and then divided at the opening made previously. We then dissected the gallbladder free of its remaining attachments to the liver using cautery. There was little or no bleeding. Once the gallbladder was completely free, it was placed in an Endo- Catch bag and was retrieved through the 10 11 epigastric trocar site. We then replaced the epigastric trocar and resumed insufflation. The liver was retra cted cephalad and irrigation and suctioning were carried out over the gallbladder fossa and the subhepatic space. This was done thoroughly and there was no evidence of blood or other tissue left in the area. There was no sign of bleeding or bile leakage. We then used a Jose cone and closed the epigastric trocar site with 0 Vicryl suture. We evacuated CO2 and removed the trocar sleeves. Skin wounds were closed with subcuticular 4-0 Monocryl skin suture. The wounds were dressed with Exofin surgical adhesive. Patient was awakened and taken to recovery in good condition. Sponge needle counts were correct x2. Estimated Blood Loss -10 Drains No Packing No Pathology Yes (Gallbladder) Complications None Condition Stable Disposition PACU [facility] Billing Surgery - Charge Forward: Surgery Billing (Laparoscopic cholecystectomy with intraoperative cholangiogram)
[2024-11-17] MEDS: fentaNYL CITRATE INJ (*CRX) 100 MCG/2 ML VIAL 25 MCG IV PUSH ×8 (12:22→13:00)
[2024-11-17] MEDS: oxyCODONE/ACETAMINOPHEN (*CRX) 5-325 MG TABLET 1 TABLET PO (19:08)
[2024-11-17] MEDS: LIDOCAINE 5% PATCH 1 PATCH TOPICAL (21:20)
[2024-11-17] MEDS: MORPHINE SULFATE (*CRX) 4 MG/ML INJ IV PUSH (23:34)
[2024-11-17] MEDS: SENNA/DOCUSATE SODIUM TABLET 2 TAB PO (23:35)
[2024-11-18] MEDS: oxyCODONE/ACETAMINOPHEN (*CRX) 10-325 MG TABLET 1 TAB PO (02:41)
[2024-11-18 02:51] VITALS: BP 134/70; PULSE 66; RESP 16; TEMP 36.4; O2SAT 96
[2024-11-18 05:01] LABS: Hematocrit 35.4 % (37.0-47.0); Hemoglobin 11.5 g/dL (12.0-15.0); Mean Corpuscular HGB Conc 32.5 g/dl (32-36); Mean Corpuscular Hemoglobin 29.8 pg (26-34); Mean Corpuscular Volume 91.7 fl (80-100); Platelet Count Result 206 k/mm3 (150-375); Red Blood Count 3.86 M/mm3 (4.2-5.4); White Blood Count 12.2 K/mm3 (4.5-10.0)
[2024-11-18 05:19] LABS: Alanine Aminotransferase 39 U/L (6-35); Albumin Level 2.7 g/dL (3.5-5.1); Alkaline Phosphatase 68 U/L (38-126); Anion Gap 3 mmol/L (4-12); Aspartate Amino Transferase 50 U/L (14-36); Bilirubin,Total 0.4 mg/dL (0.2-1.3); Blood Urea Nitrogen 5 mg/dL (7-17); Calcium 8.2 mg/dL (8.4-10.2); Carbon Dioxide 25 mmol/L (22-30); Chloride 110 mmol/L (98-107); Estimated CRCL calculation 83 ml/min; Estimated Glomerular Filt Rate > 60; Glucose 120 mg/dL (65-110); Potassium 3.5 mmol/L (3.4-5.0); Sodium 138 mmol/L (137-145); Total Protein 5.5 g/dL (6.3-8.2)
[2024-11-18] MEDS: LEVOTHYROXINE SODIUM 100 MCG TABLET PO (06:08)
--- NOTE | 2024-11-18 06:54 | P.PNGS_ITS ---
Progress Note: A&P Assessment and Plan (1) Cholelithiasis with acute on chronic cholecystitis: Code(s): K80.12 - Calculus of gallbladder with acute and chronic cholecystitis without obstruction Status: Acute Assessment and Plan: Doing well after laparoscopic cholecystectomy with cholangiogram yesterday. Okay to discharge from surgical standpoint. She chronically takes 1/2 of a Percocet daily. She has a pain management doctor. I will send in prescription for Percocet but she may need him/her to call the pharmacy and Okay the prescription. Instructions given. I will see her in follow-up in 2 weeks. (2) Acute pancreatitis: Qualifiers: Acute pancreatitis complication: no infection or necrosis Pancreatitis type: biliary Qualified Code(s): K85.10 - Biliary acute pancreatitis without necrosis or infection Code(s): K85.90 - Acute pancreatitis without necrosis or infection, unspecified Status: Resolved Assessment and Plan: Resolved and cholangiogram was negative for common bile duct stones. (3) History of duodenal ulcer: Code(s): Z87.19 - Personal history of other diseases of the digestive system Status: Chronic Assessment and Plan: Patient had been having episodes of pain and vomiting that were short lived for a long period of time. Her last EGD was about 7 years ago. She had been attributing these episodes of vomiting and pain to her ulcer. She continues to take omeprazole 20 mg daily. Advised patient to follow-up with GI on an elective basis for evaluation, probably repeat EGD, of her previous ulcer. Her initial CT scan also showed extensive inflammation in the stomach and duodenum. This could have been due to some pancreatitis were from cholecystitis but with a history of ulcer disease, follow-up is advised. Subjective Subjective Date/Time Seen: 11/18/24 06:54 Post Op day: 1 Patient reports: feels better, pain is less, voiding w/o difficulty and afebrile Exam Const: General: comfortable, alert and awake GI: Inspection: no abdominal wall ecchymosis, non-distended and incision (Healing well) GI Palp: Yes Soft to palpation and Yes Tenderness to palpation present (GI) Objective Data Vital Signs Vital Signs: Vital Signs - 24 hr 11/17/24 08:00 11/17/24 12:03 11/17/24 12:15 Temperature 37.2 C Pulse Rate 77 65 Respiratory Rate 21 H 18 Blood Pressure 102/54 L 102/54 L Pulse Oximetry 97 98 Oxygen Delivery Room Air Simple Face Mask Simple Face Mask Oxygen Flow Rate 6 6 Fraction of Inspired Oxygen 11/17/24 12:30 11/17/24 12:45 11/17/24 13:00 Temperature Pulse Rate 67 66 65 Respiratory Rate 12 12 14 Blood Pressure 106/51 L 94/50 L Pulse Oximetry 99 99 94 Oxygen Delivery Simple Face Mask Room Air Room Air Oxygen Flow Rate 6 Fraction of Inspired Oxygen 11/17/24 13:31 11/17/24 13:46 11/17/24 14:15 Temperature 36.6 C 36.6 C 36.8 C Pulse Rate 66 60 68 Respiratory Rate 16 16 16 Blood Pressure 107/50 L 108/49 L 105/51 L Pulse Oximetry 93 93 95 Oxygen Delivery Oxygen Flow Rate Fraction of Inspired Oxygen 11/17/24 14:51 11/17/24 18:07 11/17/24 18:39 Temperature 36.8 C 36.5 C Pulse Rate 65 64 70 Respiratory Rate 18 18 Blood Pressure 125/60 134/58 L 143/68 H Pulse Oximetry 96 96 97 Oxygen Delivery Oxygen Flow Rate Fraction of Inspired Oxygen 11/17/24 19:37 11/17/24 20:00 11/17/24 21:22 Temperature 36.9 C Pulse Rate 71 65 Respiratory Rate 16 20 Blood Pressure 121/54 L Pulse Oximetry 97 95 Oxygen Delivery Room Air Room Air Oxygen Flow Rate Fraction of Inspired Oxygen 21 11/17/24 22:51 11/18/24 02:51 Temperature 36.3 C L 36.4 C L Pulse Rate 67 66 Respiratory Rate 16 16 Blood Pressure 144/68 H 134/70 Pulse Oximetry 97 96 Oxygen Delivery Oxygen Flow Rate Fraction of Inspired Oxygen Intake/Output Intake/Output: Intake & Output 11/15/24 11/16/24 11/17/24 11/18/24 23:59 23:59 23:59 23:59 Intake Total 3821 2256 2760 200 Balance 3821 2256 2760 200 Meds/Results Medications: Active Medications Generic Name Dose Route Start Last Admin Trade Name Freq PRN Reason Stop Dose Admin Acetaminophen 500 mg 11/17/24 13:06 Acetaminophen 500 Mg Tablet PO Q6H PRN Pain Rated 1-3 Atorvastatin Calcium 10 mg 11/15/24 12:00 11/17/24 19:52 Atorvastatin 10 Mg Tablet PO Not Given DAILY [facility] Baclofen 20 mg 11/15/24 13:00 11/17/24 19:53 Baclofen 10 Mg Tablet PO Not Given TID [facility] Calcium Carbonate 500 mg 11/16/24 09:00 11/17/24 15:45 Calcium/Vitamin D 500 Mg/5 Mcg (200 I.U.) Tablet PO Not Given DAILY [facility] Enoxaparin Sodium 40 mg 11/16/24 09:00 11/17/24 15:46 Enoxaparin 40 Mg/0.4 Ml Syringe SUB-Q Not Given DAILY [facility] Escitalopram Oxalate 2.5 mg 11/16/24 09:00 11/17/24 19:52 Escitalopram Oxalate 2.5 Mg Tablet PO Not Given DAILY [facility] Fluticasone Propionate 1 spray 11/15/24 11:37 Fluticasone Propionate 0.05% Na Spr 16 Gm Btl (*Bkc) NASAL DAILY PRN Allergy Symptoms Hydralazine HCl 10 mg 11/14/24 11:50 Hydralazine Hcl 20 Mg/Ml Vial IV PUSH Q8H PRN Blood Pressure - High SBP>180 Potassium Chloride/Dextrose/Sod Cl 1,000 mls @ 100 mls/hr 11/16/24 08:00 11/17/24 21:20 Kcl 20 Meq/D5/0.9% Sod Chl IV CONT 100 mls/hr .Q10H JUNIE Administration Ibuprofen 800 mg in 200 mls @ 400 mls/hr 11/17/24 13:06 Caldolor 800 Mg/200 Ml IVPB Q6H PRN Breakthrough Pain Rated 1-3 or NPO Levothyroxine Sodium 100 mcg 11/16/24 06:30 11/18/24 06:08 Levothyroxine Sodium 100 Mcg Tablet PO 100 mcg DAILY@0630 JUNIE Administration Lidocaine 1 patch 11/15/24 21:00 11/17/24 21:20 Lidocaine 5% Patch TOPICAL 1 patch QHS JUNIE Administration Liothyronine Sodium 5 mcg 11/16/24 09:00 11/17/24 09:08 Liothyronine Sodium 5 Mcg Tablet PO 5 mcg DAILY JUNIE Administration Losartan Potassium 100 mg 11/16/24 09:00 11/17/24 19:52 Losartan Potassium 100 Mg Tablet PO Not Given DAILY [facility] Magnesium Oxide 600 mg 11/15/24 13:10 Magnesium Oxide 200 Mg Tablet PO DAILY PRN leg cramps Melatonin 10 mg 11/15/24 21:00 11/17/24 20:58 Melatonin 5 Mg Tablet PO Not Given QHS [facility] Morphine Sulfate 2 mg 11/17/24 13:06 11/17/24 13:50 Morphine Sulfate (*Crx) 2 Mg/Ml Inj IV PUSH 2 mg Q2H PRN Administration Breakthrough Pain Rated 4-6 or NPO Morphine Sulfate 4 mg 11/17/24 13:06 11/17/24 23:34 Morphine Sulfate (*Crx) 4 Mg/Ml Inj IV PUSH 4 mg Q2H PRN Administration Breakthrough Pain Rated 7-10 or NPO Multivitamins Therapeutic 1 tablet 11/16/24 09:00 11/17/24 19:52 Multivitamins Therapeutic Tab (*Bkc) PO Not Given DAILY [facility] Naloxone HCl 0.1 mg 11/17/24 13:06 Naloxone Hcl 0.4 Mg/Ml Vial IV PUSH Q2M PRN Opiate Reversal Non-Formulary Medication 1 drop 11/15/24 17:00 11/17/24 19:53 Lifitegrast [Xiidra] EACH EYE 12/15/24 16:59 Not Given BID [facility] Olopatadine HCl 1 drop 11/16/24 09:00 11/17/24 19:52 Olopatadine 0.1% Ophth Soln 5 Ml Btl EACH EYE Not Given DAILY [facility] Ondansetron HCl 4 mg 11/14/24 09:46 11/17/24 23:39 Ondansetron Inj 4 Mg/2 Ml Vial IV PUSH 4 mg Q4H PRN Administration Nausea Oxycodone/Acetaminophen 1 tablet 11/17/24 13:06 11/17/24 19:08 Oxycodone/Acetaminophen (*Crx) 5-325 Mg Tablet PO 1 tablet Q4H PRN Administration Pain Rated 4-6 Oxycodone/Acetaminophen 1 tab 11/17/24 13:06 11/18/24 02:41 Oxycodone/Acetaminophen (*Crx) 10-325 Mg Tablet PO 1 tab Q6H PRN Administration Pain Rated 7-10 Pantoprazole Sodium 40 mg 11/16/24 09:00 Pantoprazole 40 Mg Tablet PO QAM [facility] Polyethylene Glycol 17 gm 11/18/24 09:00 Polyethylene Glycol 3350 17 Gm Powd.Pack PO QAM [facility] Senna/Docusate Sodium 2 tab 11/17/24 21:00 11/17/24 23:35 Senna/Docusate Sodium Tablet PO 1 tab HS JUNIE Administration Valacyclovir HCl 500 mg 11/15/24 11:37 Valacyclovir Hcl 500 Mg Tablet PO DAILY PRN other Radiology Results: ITS Impressions Abdomen/Pelvis CT 11/14/24 08:53 IMPRESSION: 1. Diffuse wall thickening and surrounding fat stranding around the stomach, duodenum and proximal jejunum. Findings are concerning for gastroenteritis. 2. 5 mm calculus in right kidney. Mild hydroureteronephrosis without o bstructive calculus. 3. 1.1 cm mass in left kidney, incompletely evaluated on current examination. Correlate with prior imaging if available to document stability otherwise renal mass protocol MRI or CT is recommended for further evaluation. Abdomen Ultrasound 11/14/24 15:35 IMPRESSION: 1: Visualized pancreas is heterogeneous with a small amount of surrounding peripancreatic fluid. Findings are concerning for acute pancreatitis. Correlate clinically. Recommend follow-up to resolution. 2. Cholelithiasis. 3. Multiple right renal cysts. 4. Positive Mojica's sign according to the technologist was suggest the possibility of acute cholecystitis. Gallbladder wall is mildly thickened. If of concern, consider a HIDA scan. Cholangiogram,Operative 11/17/24 11:54 IMPRESSION: 1. Patent cystic duct remnant and common bile duct, without common bile duct stone. Labs Labs: Laboratory Results - last 24 hr 11/17/24 11/18/24 09:48 04:33 WBC 12.2 H RBC 3.86 L Hgb 11.5 L Hct 35.4 L MCV 91.7 MCH 29.8 MCHC 32.5 RDW 15.5 H Plt Count 206 MPV 10.9 H Sodium 138 Potassium 3.5 Chloride 110 H Carbon Dioxide 25 Anion Gap 3 L BUN 5 L Creatinine 0.45 L Estim Creat Clear Calc 83 Estimated GFR > 60 Glucose 120 H Calcium 8.2 L Total Bilirubin 0.4 AST 50 H ALT 39 H Alkaline Phosphatase 68 Total Protein 5.5 L Albumin 2.7 L Blood Type O Negative Antibody Screen Negative
[2024-11-18 08:23] VITALS: BP 147/62; PULSE 70; RESP 16; TEMP 36.6; O2SAT 96
[2024-11-18] MEDS: oxyCODONE/ACETAMINOPHEN (*CRX) 5-325 MG TABLET 1 TABLET PO (08:31)
[2024-11-18] MEDS: ENOXAPARIN 40 MG/0.4 ML SYRINGE SUB-Q (08:31)
[2024-11-18] MEDS: CALCIUM/VITAMIN D 500 MG/5 MCG (200 I.U.) TABLET PO (08:31)
[2024-11-18] MEDS: LIOTHYRONINE SODIUM 5 MCG TABLET PO (08:32)
[2024-11-18] MEDS: PANTOPRAZOLE 40 MG TABLET PO (08:32)
[2024-11-18] MEDS: ESCITALOPRAM OXALATE 2.5 MG TABLET PO (08:32)
[2024-11-18] MEDS: BACLOFEN 10 MG TABLET 20 MG PO ×2 (08:32→13:01)
[2024-11-18] MEDS: MULTIVITAMINS THERAPEUTIC TAB (*BKC) 1 TABLET PO (08:32)
[2024-11-18] MEDS: LOSARTAN POTASSIUM 100 MG TABLET PO (08:32)
[2024-11-18] MEDS: ATORVASTATIN 10 MG TABLET PO (08:32)
[2024-11-18] MEDS: OLOPATADINE 0.1% OPHTH SOLN 5 ML BTL 1 DROP EACH EYE (08:33)
[2024-11-18] MEDS: [UNRECOGNIZED DRUG - OTHER] EACH EYE (08:33)
[2024-11-18] MEDS: LIFITEGRAST 5% EACH EYE (08:33)
--- NOTE | 2024-11-18 10:07 | WPDANESPN ---
Anes - Prog Note Post-Op Date/Time: 11/18/24 10:07 Cardiovascular status: normal Respiratory status: normal Airway patency: baseline Mental status: baseline Post-Op hydration status: normal Vital Signs: Last Vital Signs Temp 36.6 C 11/18/24 08:23 Pulse 70 11/18/24 08:23 Resp 16 11/18/24 08:23 BP 147/62 H 11/18/24 08:23 Pulse Ox 96 11/18/24 08:23 O2 Del Method Room Air 11/18/24 08:00 O2 Flow Rate 6 11/17/24 12:30 FiO2 21 11/17/24 21:22 Pain Score (VAS): 2 I/O: Intake & Output 11/17/24 11/18/24 11/18/24 23:59 07:59 15:59 Intake Total 160 200 240 Balance 160 200 240 Laboratory Tests 11/18/24 04:33 11/18/24 04:33 11/17/24 11/18/24 09:48 04:33 WBC 12.2 H RBC 3.86 L Hgb 11.5 L Hct 35.4 L MCV 91.7 MCH 29.8 MCHC 32.5 RDW 15.5 H Plt Count 206 MPV 10.9 H Sodium 138 Potassium 3.5 Chloride 110 H Carbon Dioxide 25 Anion Gap 3 L BUN 5 L Creatinine 0.45 L Estim Creat Clear Calc 83 Estimated GFR > 60 Glucose 120 H Calcium 8.2 L Total Bilirubin 0.4 AST 50 H ALT 39 H Alkaline Phosphatase 68 Total Protein 5.5 L Albumin 2.7 L Blood Type O Negative Antibody Screen Negative Post-procedural complaints: none Patient Feedback: Patient satisfied with anesthetic care.
--- NOTE | 2024-11-18 12:23 | PM.DS ---
DS: Admitting Diagnosis Discharge Date 11/18/2024 Admitting Diagnosis Abdominal pain DS: Discharge Diagnosis Discharge Diagnosis (1) Pre-diabetes: Code(s): R73.03 - Prediabetes Status: Acute (2) Alcohol use: Code(s): F10.90 - Alcohol use, unspecified, uncomplicated Status: Acute (3) Anxiety with depression: Code(s): F41.8 - Other specified anxiety disorders Status: Acute (4) Rotator cuff tear arthropathy of both shoulders: Code(s): M75.101 - Unspecified rotator cuff tear or rupture of right shoulder, not specified as traumatic; M12.811 - Other specific arthropathies, not elsewhere classified, right shoulder; M12.812 - Other specific arthropathies, not elsewhere classified, left shoulder; M75.102 - Unspecified rotator cuff tear or rupture of left shoulder, not specified as traumatic Status: Acute (5) Hypertension: Qualifiers: Hypertension type: unspecified Qualified Code(s): I10 - Essential (primary) hypertension Code(s): I10 - Essential (primary) hypertension Status: Acute (6) Obesity: Code(s): E66.9 - Obesity, unspecified Status: Acute (7) Hypothyroidism, unspecified: Qualifiers: Hypothyroidism type: acquired Qualified Code(s): E03.9 - Hypothyroidism, unspecified Code(s): E03.9 - Hypothyroidism, unspecified Status: Chronic (8) Pancreatitis: Qualifiers: Chronicity: acute Pancreatitis type: unspecified pancreatitis type Acute pancreatitis complication: no infection or necrosis Qualified Code(s): K85.90 - Acute pancreatitis without necrosis or infection, unspecified Code(s): K85.90 - Acute pancreatitis without necrosis or infection, unspecified Status: Acute DS: Summary Hospital Course Hospital Course: # Pancreatitis/acute cholecystitis 11/17: Laparoscopic cholecystectomy with intraoperative cholangiogram Satisfy the criteria : CT imaging and lipase Possible secondary to gall stone TG level normal Elevated liver enzyme and elevated lipases upon admission Treated with IV fluids and pain medication US concerning for acute cholecystitis. GI and General surgery consulted. LFTs improved She underwent laparoscopic cholecystectomy on 11/17/2024. No CBD stones noted on intraoperative cholangiogram. Tolerating diet postoperatively and okay for discharge from surgical standpoint Lipase is normalized Hypothyroidism Levothyroxine HTN losartan kidney mass Found on CT. MRI as outpatient Time Spent with Patient Time attestation: Total time spent providing and/or coordinating discharge services: 45 minutes Exam Narrative: General appearance: Well-developed, well-nourished Skin: Normal color Head: Normocephalic, nontraumatic Eyes: Clear conjunctiva ENT: dry oral cavity Neck: Supple, nontender Chest and respiratory: Airway patent, no respiratory distress, no accessory muscle use Heart: Regular rate/rhythm Abdomen: Soft, surgical incision sites clean dry and intact, no organomegaly, normal bowel sounds Vascular: Normal peripheral pulses, normal capillary refill. 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5 L Albumin 2.7 L Preliminary micro results at discharge 11/14/24 12:01 Blood Culture - Preliminary Blood 11/14/24 12:06 Blood Culture - Preliminary Blood Discharge Plan Discharge Attending physician on discharge: Reggie Rojas Consulting providers: Nadia Shahid; Jimmy Simental Discharging Clinician: Reggie Rojas Anticipated Discharge Date/Time: 11/18/24 12:29 Patient Disposition: Home Activity: may shower, no straining and as tolerated Diet: low fat Wound Care Instructions: incision open to air Discharge Instructions: 1. May shower the day after surgery over incisions. 2. Call office for: -Wound increasingly painful or bleeding -Vomiting -Fever of greater than 101 degrees 3. Expect some blood on dressing and old blood on skin. 4. If no bowel movement for three days, take 1 oz. (30 ml) Milk of Magnesia, if no results, take Fleets enema. 5. No heavy lifting > 15 pounds for 2 weeks. 6. No driving for 3 days. 7. Up walking 10-30 minutes three times per day. 8. Resume previous home medications. 9. Follow-up 10-14 days in office for wound check or as previously scheduled. 10. Oral pain medications prescription have been sent to patient's pharmacy. Patient may need her pain management physician to call the pharmacy to get these filled. Patient Instructions: Antibiotic Form Patient Language: Lao Stand Alone Forms: General Discharge Information Follow-up/Referrals: Jimmy Simental MD [Physician, General Surgery] - 2 Weeks Referral Note: Call office to make follow-up appointment with Alejandrina Fuentes, PURCHASING CLERK-C [Primary Care Provider, Internal Medicine] - 1 Week Discharge Medications: New oxycodone-acetaminophen [Percocet] 5-325 mg tablet 0.5 - 1 tablet PO Q4H PRN (Reason: pain) Qty: 10 0RF sennosides-docusate sodium [Senokot-S] 8.6-50 mg Tablet 2 tab PO HS Qty: 8 0RF polyethylene glycol 3350 [Miralax] 17 gram Powder In Packet 17 g PO QAM Qty: 8 0RF Continued oxycodone-acetaminophen [Percocet] 5-325 mg tablet 0.5 tablet PO DAILY PRN (Reason: pain) escitalopram oxalate [Lexapro] 5 mg tablet 2.5 mg PO DAILY Rx Instructions: Do not take with [place] Wart. multivitamin [Daily Multi-Vitamin] Tablet 1 tablet PO DAILY baclofen 20 mg tablet 20 mg PO TID fluticasone propionate [Allergy Relief (fluticasone)] 50 mcg/actuation spray,suspension 1 spray NASAL DAILY PRN (Reason: Allergy Symptoms) olopatadine 0.1 % drops 1 drp EACH EYE DAILY Patient Comments: unknown dose Rx Instructions: separate doses by at least 6-8 hours magnesium 30 mg tablet 30 mg PO DAILY Patient Comments: dose unknown ascorbic acid (vitamin C) 500 mg capsule 500 mg PO DAILY Patient Comments: dose unknown calcium carbonate-vitamin D3 500 mg-10 mcg (400 unit) tablet 1 tablet PO DAILY Patient Comments: dose unknown melatonin 10 mg capsule 10 mg PO QHS omeprazole 20 mg capsule,delayed release(DR/EC) 20 mg PO DAILY Rx Instructions: 7 days a month Xiidra 5 % dropperette 1 drp EACH EYE BID lidocaine 5 % adhesive patch,medicated 1 patch topical Q24H Patient Comments: Place on back atorvastatin 10 mg tablet See Rx Instructions .ROUTE .COMPLEX Qty: 90 4RF Dose Instruction: TAKE ONE TABLET BY MOUTH ONCE DAILY Rx Instructions: TAKE ONE TABLET BY MOUTH ONCE DAILY losartan 100 mg tablet 100 mg PO DAILY Qty: 90 3RF levothyroxine 100 mcg tablet 100 mcg PO DAILY Qty: 90 1RF liothyronine 5 mcg tablet See Rx Instructions .ROUTE .COMPLEX Qty: 90 1RF Dose Instruction: Take 1 Tablet (5 mcg) by mouth daily. Rx Instructions: Take 1 Tablet (5 mcg) by mouth daily. valacyclovir 500 mg tablet 500 mg PO DAILY PRN (Reason: other) Qty: 90 0RF Date of admission: 11/14/24 09:46 Primary Care Provider: Alejandrina Childress Admitting Provider: Sarah Mae Attending physician on admission: Sarah Mae Condition: Improved
[2024-11-18 12:53] VITALS: BP 155/75; PULSE 73; RESP 16; TEMP 36.7; O2SAT 97
[2024-11-18 18:08] LABS: IgG, Subclass 1 410 mg/dL (248-810); IgG, Subclass 2 328 mg/dL (130-555); IgG, Subclass 3 15 mg/dL (15-102); IgG, Subclass 4 35 mg/dL (2-96); Immunoglobulin G, Qn 791 mg/dL (586-1602)
--- NOTE | 2024-11-19 06:36 | WPDCDIQUERY2 ---
CDI Query Clarification Request Please clarify if sepsis has been ruled in or ruled out. sepsis was documented by hospitalist till 11/15 11/15 ? Sepsis Leukocytosis, elevated lactic acid lactic acid improved will start Rocephin and flagyl. Plan Pancreatitis/acute cholecystitis 11/17: Laparoscopic cholecystectomy with intraoperative cholangiogram Satisfy the criteria : CT imaging and lipase Possible secondary to gall stone TG level normal Elevated liver enzyme Elevated lipase. Continue IV fluid, pain medication US concerning for acute cholecystitis. will get HIDA scan if GI recommends. GI and surgery team on board Continue monitor Clear liquid diet Pain control ordered Currently on Zosyn Hypothyroidism Levothyroxine HTN losartan kidney mass Found on CT. MRI as outpatient lactic 11/14: 3.2, 1.9 <Cinthya Harrell RN - Last Filed: 11/19/24 06:40> Provider Comments sepsis ruled in <Reggie Rojas MD - Last Filed: 11/19/24 08:05>
[2024-11-19 15:09] LABS: ANA by IFA Rfx Titer/Pattern Negative (.)
== END 2024-11-18 14:12 | disposition home or self-care (01) | DRG 853 ==
LOC: ANHED 08:31 → ANH2MED 10:29
PROVIDERS: General Practice; Internal Medicine; Nurse Practitioner Family; Surgery; Admitting Provider Family Medicine; Emergency Provider Emergency Medicine; PCP Clinical Nurse Specialist; Visit Provider Internal Medicine
PROC: 0FT44ZZ Resection of Gallbladder, Percutaneous Endoscopic Approach (ICD-10-PCS; CPT 47562; principal; 2024-11-17 10:30)
DX: A41.9 Sepsis, unspecified organism (principal); K85.90 Acute pancreatitis without necrosis or infection, unspecified; K80.12 Calculus of gallbladder with acute and chronic cholecystitis without obstruction; E05.00 Thyrotoxicosis with diffuse goiter without thyrotoxic crisis or storm; E03.9 Hypothyroidism, unspecified; I10 Essential (primary) hypertension; E78.5 Hyperlipidemia, unspecified; N28.89 Other specified disorders of kidney and ureter; E66.9 Obesity, unspecified; R73.03 Prediabetes; F41.8 Other specified anxiety disorders; M75.101 Unspecified rotator cuff tear or rupture of right shoulder, not specified as traumatic; M75.102 Unspecified rotator cuff tear or rupture of left shoulder, not specified as traumatic; F10.90 Alcohol use, unspecified, uncomplicated; Z68.29 Body mass index [BMI] 29.0-29.9, adult; Z79.891 Long term (current) use of opiate analgesic; Z87.19 Personal history of other diseases of the digestive system
CPT/HCPCS: 36415; 74177; 74300; 76705; 80053; 81001; 82784; 82787; 83605; 83690; 85025; 85027; 86038; 86850; 86900; 86901; 87040; 87086; 87637; 88304; 96361; 96374; 96375; 96376; 99285; A9270; J0360; J0696; J1171; J1650; J1836; J2003; J2270; J2405; J2470; J2543; J2704; J3010; J3480; J7030; J7120; Q9966; Q9967

== ENCOUNTER 2024-11-22 09:07 | Outpatient (CLI) | payer BC, SELFPAY ==
--- OUTSIDE RECORDS SUMMARY | 2024-11-22 09:14 | XMS_ITS | Clinical Summary ---
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 Active liothyronine (CYTOMEL) 5 mcg Tablet Take [...] times daily. Active fluticasone (FLONASE) 50 mcg/spray Aroda, Suspension Administer 2 Sprays in each nostril [...] off. 60 Patch 1 3 11:12 AM MANAGER PAYER 01/29/20 22 Active oxyCODONE-acetamin ophen (PERCOCET) 5-325 mg tablet Take 1 tablet by mouth once to twice daily as needed 40 Tablet 3 2:13 PM MANAGER PAYER 04/22/19 23 Active trifluridine (VIROPTIC) 1 % solution Administer 1 Drop in right eye every 2 hours while awake. 7.5 mL 3 4:21 PM MANAGER PAYER 04/29/19 23 Active valACYclovir (VALTREX) 1 gram tablet Take 1 tablet (1 gram) by mouth 3 times daily for 10 days. 30 Tablet 3 12:42 PM MANAGER PAYER 04/29/19 23 Active valACYclovir (VALTREX) 500 mg tablet TAKE ONE TABLET BY MOUTH ONCE DAILY 30 Tablet 5 05/15/19 23 Active baclofen (LIORESAL) 20 mg tablet Take 1 Tablet (20 mg) by mouth every 8 hours as needed. 270 Tablet 1 3 5:40 PM MANAGER PAYER 05/20/19 23 Active baclofen (LIORESAL) 20 mg [...] BEFORE MEALS 30 Capsule 3 3:25 PM MANAGER PAYER 02/23/20 23 Active esomeprazole (NexIUM) 40 mg Capsule, Delayed Release(E.C.) TAKE 1 CAPSULE BY MOUTH DAILY BEFORE MEALS 30 Capsule 6 02/23/20 23 Active ondansetron (ZOFRAN ODT) 4 mg Tablet, Rapid Dissolve DISSOLVE 1 TABLET BY MOUTH THREE TIMES DAILY NEEDED 30 Tablet 2 3 3:25 PM MANAGER PAYER 02/23/20 23 Active baclofen (LIORESAL) 20 mg tablet Take 1 Tablet (20 mg) by mouth 3 times daily as needed. 270 Tablet 3 4:05 PM MANAGER PAYER 02/25/20 23 Active oxyCODONE-acetamin ophen (PERCOCET) 5-325 mg tablet Take 1 Tablet by mouth 2 times daily as needed. 40 Tablet 3 10:55 AM MANAGER PAYER 02/28/20 23 Active losartan (COZAAR) 100 mg [...] needed 60 Patch 1 5 1:12 PM MANAGER PAYER 02/20/20 24 Active oxyCODONE-acetamin ophen (PERCOCET) 5-325 mg tablet Take 1 Tablet by mouth 2 times daily as needed. Max Daily Amount: 2 Tablets 40 Tablet 5 2:44 PM MANAGER PAYER 05/08/19 25 Active levothyroxine 100 mcg tablet Take 1 Tablet (100 mcg) by mouth daily. 90 Tablet 1 5 11:25 AM CDT 05/29/19 25 Active lidocaine (LIDODERM) 5 % Adhesive Patch, Medicated APPLY 1-2 PATCHES TO AFFECTED AREA DAILY NEEDED. LEAVE ON FOR 12 HOURS, REMOVE FOR 12 HOURS. 60 Patch 1 5 12:26 PM CDT 06/11/19 25 Active naloxone (Narcan) 4 mg/spray Aroda, Non-Aerosol Use one spray as directed, only [...] 5 11:21 AM CDT 10/22/19 25 Active oxyCODONE-acetamin ophen (PERCOCET) 5-325 mg tablet Take 0.5-1 Tablet by mouth every 4 hours as needed for pain. Max Daily Amount: 6 Tablets 10 Tablet 11/19/19 25 Active sennosides-docusat e sodium (SENNA-S) 8.6-50 mg tablet Take 2 Tablets by mouth daily at bedtime. 8 Tablet 11/19/19 25 Active polyethylene glycol (MIRALAX) 17 gram Powder in Packet MIX 1 PACKET ( 17 GRAMS ) IN LIQUID OF CHOICE AND DRINK EVERY MORNING. 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
[2024-11-22 18:22] LABS: Hematocrit 43.7 % (37.0-47.0); Hemoglobin 13.6 g/dL (12.0-15.0); Immature Granulocyte Percent A 3.8 % (0-0.5); Lymphocytes Absolute Auto 2.11 K/mm3 (0.9-3.2); Mean Corpuscular HGB Conc 31.1 g/dl (32-36); Mean Corpuscular Hemoglobin 29.4 pg (26-34); Mean Corpuscular Volume 94.6 fl (80-100); Nucleated Red Blood Cells Absolute Auto 0.000 K/mm3 (0.0-0.012); Nucleated Red Blood Cells Perc 0.0 % (0.0-0.2); Platelet Count Result 454 k/mm3 (150-375); Red Blood Count 4.62 M/mm3 (4.2-5.4); White Blood Count 12.0 K/mm3 (4.5-10.0)
[2024-11-22 18:59] LABS: Hemoglobin A1C 5.7 % (<5.7)
[2024-11-22 19:07] LABS: Alanine Aminotransferase 37 U/L (6-35); Albumin Level 3.6 g/dL (3.5-5.1); Alkaline Phosphatase 102 U/L (38-126); Anion Gap 7 mmol/L (4-12); Aspartate Amino Transferase 46 U/L (14-36); Bilirubin,Total 0.4 mg/dL (0.2-1.3); Blood Urea Nitrogen 14 mg/dL (7-17); Calcium 9.9 mg/dL (8.4-10.2); Carbon Dioxide 30 mmol/L (22-30); Chloride 102 mmol/L (98-107); Estimated Glomerular Filt Rate > 60; Glucose 85 mg/dL (65-110); Potassium 4.7 mmol/L (3.4-5.0); Sodium 139 mmol/L (137-145); Total Protein 7.3 g/dL (6.3-8.2)
== END 2024-11-22 09:08 | disposition home or self-care (01) ==
LOC: ANHGOSHLAB 09:08
PROVIDERS: PCP Clinical Nurse Specialist; Visit Provider Clinical Nurse Specialist
DX: I10 Essential (primary) hypertension (principal); R73.01 Impaired fasting glucose; K80.80 Other cholelithiasis without obstruction
CPT/HCPCS: 36415; 80053; 83036; 85025

== ENCOUNTER 2025-01-24 09:40 | Outpatient (CLI) | payer BC, SELFPAY ==
--- NOTE | ~2025-01-24 | MR_ITS ---
EXAMINATION: MR abdomen wo/w con DATE: 01/24/2025 11:34 INDICATION: Other specified disorders of kidney and ureter TECHNIQUE: Magnetic resonance imaging (MRI) of the abdomen was performed without and with 15 mL Multihance intravenous contrast. Sequences included coronal T2- weighted SS-FSE, coronal and axial FS 2D-FIESTA, axial STIR FSE, axial T2- weighted SS-FSE, axial T2-weighted FS SS-FSE, axial diffusion-weighted SE, axial dual-echo T1-weighted FSPGR, and axial and coronal T1-weighted LAVA. Postcontrast axial T1-weighted LAVA images were obtained in a time course. Postcontrast coronal T1-weighted LAVA images were obtained. COMPARISON: CT dated 11/14/2024 FINDINGS: Heart size is normal. No pericardial or pleural effusion. Cholecystectomy clips the gallbladder fossa. Liver, spleen, pancreas and bilateral adrenal glands are normal. There multiple bilateral T2 hyperintense nonenhancing parapelvic cysts in both kidneys. There are additional bilateral nonenhancing parenchymal cysts, some of which are typical T2 hyperintense simple cysts and a couple in the left kidney measuring 1 cm each with very low T2 and high T1 signal consistent with proteinaceous/hemorrhagic cyst. Scattered colonic diverticulosis without adjacent from trace stranding to suggest diverticulitis. No bowel obstruction. Normal appendix. No pathologically enlarged abdominal or upper pelvic lymphad enopathy. Mild lumbar dextrocurvature with severe spondylosis. There are fibrofatty degenerative endplate changes at multiple levels in the lumbar spine. No pathologic marrow replacing process. IMPRESSION: 1. Multiple parenchymal and parapelvic cysts in both kidneys including couple complex proteinaceous/hemorrhagic cysts in the left kidney which correspond to the lesions of concern demonstrating greater than simple fluid attenuation on prior CT dated 11/14/24. Reviewed, dictated and finalized at location A. IMPRESSION: 1. Multiple parenchymal and parapelvic cysts in both kidneys including couple c omplex proteinaceous/hemorrhagic cysts in the left kidney which correspond to t he lesions of concern demonstrating greater than simple fluid attenuation on pr ior CT dated 11/14/24.
--- OUTSIDE RECORDS SUMMARY | 2025-01-24 10:20 | XMS_ITS | Data Portability ---
Author Organization [facility] [employer], Main Office Address [address] [place] [address] Assessment No assessment recorded. Plan of Treatment Reminders Order Date Submit Date Provider Last Modified By Organization Details Last Modified Time Details Appointments None recorded. Lab lipase, serum or plasma 2022 023 [email or web address], [address], [place], [address], 3 11:26:14 amylase, serum or plasma 2022 023 [email or web address] 11 [place], [address], [place], [address], 3 11:26:14 CBC w/ auto diff 2022 023 [email or web address] 11 [place], [address], [place], [address], 3 11:26:14 H. pylori, fingerstick 2022 023 [facility] [address], [place], [address], 3 11:54:28 TSH + free T4, serum 2022 023 [email or web address] 11 [facility], [address], [place], [address], 3 11:26:15 CMP, serum or plasma 2022 023 [email or web address] 11 [facility], [address], [place], [address], 3 11:26:14 lipid panel, serum 2022 023 [email or web address] 11 [facility], [address], [place], [address], 3 11:26:14 CK (creatine kinase), total, serum 2022 023 [email or web address] 11 [facility], [address], [place], [address], 3 11:26:15 Referral None recorded. Procedures None recorded. Surgeries None recorded. Imaging MAMMO, screening, bilateral [email or web address] (Imaging), [address] [place] [address] [address], [place], [address], 3 09:03:03 Medication Orders ondansetron 4 mg disintegrat ing tablet 2022 023 [facility], [address], [place], [place], [id number], 3 11:55:13 esomeprazol e magnesium 40 mg capsule,del ayed release 2022 023 [email or web address] 200 [facility], [address], [place], [place], [id number], 3 11:54:26 Patient TargetsNo targets recorded. Patient Instructions Encounter Date Encounter Id Patient Instructions Last Modified By Organization Details Last Modified Time 02/22/2023 [id number] avoid the foods that aggravate this. Go to ED if not improving [email or web address] Not available 02/26/2023 10:05:24 Reason for Referral None Reported. Results Created Date Observation Date Name Description Value Unit Range Abnormal Flag Note LastModifiedBy Organization Detail LastModifiedTime 07/07/19 22 07/07/2021 COMPR EHENS RAFY METAB OLIC PANEL glucose 81 mg/dL 65-99 normal Fasti ng refer ence inter laron Not Available [address] [place], [address], 07/07/2021 03:17:57 07/07/19 22 07/07/2021 COMPR EHENS RAFY METAB OLIC PANEL urea nitrogen (BUN) 17 mg/dL 7-25 normal Not Available [address], [address], 07/07/2021 03:17:57 07/07/19 22 07/07/2021 COMPR EHENS RAFY METAB OLIC PANEL creatinine 0.62 mg/dL 0.60-0 .93 normal For patie nts >49 years of age, the refer ence limit for Creat inine is appro ximat eugenio 13% highe r for peopl e ident ified as Afric an-Am forest n. Not Available [address] [address] [place], [address], 07/07/2021 03:17:57 07/07/19 22 07/07/2021 COMPR EHENS RAFY METAB OLIC PANEL eGFR non-afr. eritrean 90 mL/mi n/1.7 3m2 > or = 60 normal Not Available [facility] [address] [address] [place], [address], 07/07/2021 03:17:57 07/07/19 22 07/07/2021 COMPR EHENS RAFY METAB OLIC PANEL eGFR 104 mL/mi n/1.7 3m2 > or = 60 normal Not Available [facility] [address] [address] [place], [address], 07/07/2021 03:17:57 07/07/19 22 07/07/2021 COMPR EHENS RAFY METAB OLIC PANEL BUN/creatini ne ratio not applic able (calc ) 6-22 Not Available [address], [address], 07/07/2021 03:17:57 07/07/19 22 07/07/2021 COMPR EHENS RAFY METAB OLIC PANEL sodium 144 mmol/ L 135-14 6 normal Not Available [address], [address], 07/07/2021 03:17:57 07/07/19 22 07/07/2021 COMPR EHENS RAFY METAB OLIC PANEL potassium 4.3 mmol/ L 3.5-5. 3 normal Not Available [address], [address], 07/07/2021 03:17:57 07/07/19 22 07/07/2021 COMPR EHENS RAFY METAB OLIC PANEL chloride 106 mmol/ L 98-110 normal Not Available [address], [address], 07/07/2021 03:17:57 07/07/19 22 07/07/2021 COMPR EHENS RAFY METAB OLIC PANEL carbon dioxide 31 mmol/ L 20-32 normal Not Available [address], [address], 07/07/2021 03:17:57 07/07/19 22 07/07/2021 COMPR EHENS RAFY METAB OLIC PANEL calcium 9.4 mg/dL 8.6-10 .4 normal Not Available [address], [address], 07/07/2021 03:17:57 07/07/19 22 07/07/2021 COMPR EHENS RAFY METAB OLIC PANEL protein, total 6.7 g/dL 6.1-8. 1 normal Not Available [address], [address], 07/07/2021 03:17:57 07/07/19 22 07/07/2021 COMPR EHENS RAFY METAB OLIC PANEL albumin 3.9 g/dL 3.6-5. 1 normal Not Available [address], [address], 07/07/2021 03:17:57 07/07/19 22 07/07/2021 COMPR EHENS RAFY METAB OLIC PANEL globulin 2.8 g/dL_ (calc ) 1.9-3. 7 normal Not Available [address], [address], 07/07/2021 03:17:57 07/07/19 22 07/07/2021 COMPR EHENS RAFY METAB OLIC PANEL albumin/glob ulin ratio 1.4 (calc ) 1.0-2. 5 normal Not Available [address], [address], 07/07/2021 03:17:57 07/07/19 22 07/07/2021 COMPR EHENS RAFY METAB OLIC PANEL bilirubin, total 0.5 mg/dL 0.2-1. 2 normal Not Available [address], [address], 07/07/2021 03:17:57 07/07/19 22 07/07/2021 COMPR EHENS RAFY METAB OLIC PANEL alkaline phosphatase 86 U/L 37-153 normal Not Available [address], [address], 07/07/2021 03:17:57 07/07/19 22 07/07/2021 COMPR EHENS RAFY METAB OLIC PANEL AST 17 U/L 10-35 normal Not Available [address], [address], 07/07/2021 03:17:57 07/07/19 22 07/07/2021 COMPR EHENS RAFY METAB OLIC PANEL ALT 20 U/L 6-29 normal Not Available [facility] [address] [address] [place], [address], 07/07/2021 03:17:57 07/07/19 22 07/07/2021 LIPID PANEL , STAND BARRY cholesterol, total 181 mg/dL <200 normal Not Available [address] [address] [place], [address], 07/07/2021 03:17:57 07/07/19 22 07/07/2021 LIPID PANEL , STAND BARRY HDL cholesterol 66 mg/dL > or = 50 normal Not Available [address] [address] [place], [address], 07/07/2021 03:17:57 07/07/19 22 07/07/2021 LIPID PANEL , STAND BARRY triglyceride s 121 mg/dL <150 normal Not Available [address] [address] [place], [address], 07/07/2021 03:17:57 07/07/1907/07/2021 LIPID PANEL , STAND [...] a valid ated novel metho d provi ding iris r accur acy than the Fried renetta equat ion in the estim ation of LDL-C . Ana iraheta SS et al. ENMANUEL. 2013; 310(1 9): 2061- 2068 (http ://ed ucati on.Qu Harish olveraBrandarks. com/f aq/FA Q164) Not Available [facility] [address] [address] [place], [address], 07/07/2021 03:17:57 07/07/19 22 07/07/2021 LIPID PANEL , STAND BARRY chol/HDLC ratio 2.7 (calc ) <5.0 normal Not Available [facility] [address] [place], [address], 07/07/2021 03:17:57 07/07/19 22 07/07/2021 LIPID PANEL , STAND BARRY non HDL cholesterol 115 mg/dL _(alexandra c) <130 normal For patie nts with diabe edith plus 1 major ASCVD risk facto r, treat ing to a non-H DL-C goal of <100 mg/dL (LDL- C of <70 mg/dL ) is consi dered a thera peuti c optio n. Not Available [facility] [address] [address], [place], [address], 07/07/2021 03:17:57 02/23/20 23 02/22/2023 H. pylor i, finge rstic k H PYLORI negati ve Not Available [facility] [address], [place], [address], 02/22/2023 11:41:00 04/05/19 24 04/05/2023 MAMMO , scree celine, bilat eral No observ ation record ed. [email or web address] [facility] [address], [place], [address], 04/24/2023 17:44:47 06/16/19 24 06/16/2023 XR, cervi alexandra spine , 2 or 3 view No observ ation record ed. [address] [facility] [address], [place], [address], 06/19/2023 10:51:55 06/16/19 24 06/16/2023 XR, thora cic spine , 3 view No observ ation record ed. [address] [facility] [address], [place], [address], 06/19/2023 10:51:34 06/16/19 24 06/16/2023 XR, lumba r spine , 2 view No observ ation record ed. [address], [place], [address], 06/19/2023 10:19:29 Result Notes None recorded. Problems Name Problem SNOMED Code Status Onset Date Resolution Date Notes Provider Name and Address Organization Details Recorded Time Achilles tendiniti s 95991076 Active Not Available [facility] 3 08:09:15 Disorder of shoulder 153746548 Active Not Available [facility] 3 08:09:15 On examinati on - lip swelling Active Not Available [facility] 3 08:09:15 Osteoarth ritis of knee 816057041 Active Not Available [facility] 3 08:09:16 Urinary symptoms 718117402 Active Not Available [facility] 3 08:09:16 Shoulder joint pain 652646059 Active Not Available [facility] 3 08:09:16 Loss of hair 215376366 Active Not Available [facility] 3 08:09:16 Low back pain 632418987 Active seeing pain management , they prescribe her Percocet EdSHEN Jones [address] [facility], [facility] [address], [place], [address] , [place] [facility] 3 11:56:04 Orthostat ic hypotensi on 03640945 Active Not Available [facility] 3 08:09:16 Right upper quadrant pain 500819557 Active Not Available [facility] 3 08:09:16 Enthesopa thy of hip region 79068808 Active Not Available [facility] 3 08:09:16 Lesion of ulnar nerve 412063135 Active Not Available [facility] 3 08:09:16 Osteoarth ritis 923172254 Active Not Available [facility] 3 08:09:16 Visual impairmen t 825512528 Active Not Available [facility] 3 08:09:16 Dizziness 603479599 Active Not Available [facility] 3 08:09:16 Hypothyro idism 51691386 Active Not Available [facility] 3 08:09:16 Disorder of rotator cuff 396070554 Active Not Available [facility] 3 08:09:17 Ulcer of duodenum 12379737 Active Not Available [facility] 3 08:09:17 Hyperlipi demia 89761688 Active Not Available [facility] 3 08:09:17 Essential hypertens ion 29726016 Active Not Available [facility] 3 08:09:17 Degenerat ion of cervical intervert ebral disc 07181801 Active Not Available [facility] 3 08:09:17 Hemorrhoi ds 84353725 Active Not Available [facility] 3 08:09:17 Degenerat ion of intervert ebral disc 12306917 Active Not Available [facility] 3 08:09:17 Tinea corporis 90940222 Active Not Available [facility] 3 08:09:17 Acute conjuncti vitis 37596285 Active 2022 Janet Adame MD [address], [place], [address] , [employer] 3 12:48:08 Gastroeso phageal reflux disease 066244958 Active 2022 SHEN Minor [address], [place], [address] , [employer] [facility] 3 11:34:29 Nausea 292145696 Active 2022 SHEN Minor [address], [place], [address] , [facility] 3 11:53:46 Problem Notes None recorded. Procedures Surgical History Date Name Laterality Status Provider Name and Address Organization Details Recorded Time Tubal Ligation completed Not Available [facility] 05/25/2022 08:05:51 Rotator cuff surgery completed Not Available [facility] 05/25/2022 08:05:51 Tonsillectomy completed Not Available [facility] 05/25/2022 08:05:51 Imaging Results None recorded. Procedure Notes None recorded. Medical Equipment None Reported. Allergies Allergen ID Allergen Name Allergen Category Reaction Reaction Severity Criticality Documentation Date Start Date Code Code System Note Provider Name and Address Organization Details Recorded Time hydrocodo ne Not available other Not available Not available 05/25/2022 5489 RxNorm depre ssion Not Available [facility] 3 08:13:24 72690 diclofena c Not available diarrhea Not available [...] completed Not Available Not Available Not Available [place] Thyroid 120 mg tablet active Not Available [...] completed Not Available Not Available Not Available [place] Wort 300 mg tablet Take by oral [...] Not Available Not Available Not Available Afluria (P F) 45 mcg (15 mcg x 3)/0.5 mL intramuscul ar syringe active Not Available Not Available N ot Available Pennsaid 20 mg/gram/act uation (2 %) topical soln in metered-dos e pump APPLY 2 PUMPS TO THE AFFECTED AREA(S) TWICE A DAY FOR 30 DAYS 06/24 completed Not Available Not Available Not Available Afluria 3049-9521(P F) 45 mcg (15 mcg x 3)/0.5 mL intramuscul ar syringe active Not Available Not Available N ot Available Fluarix Quad (PF) 60 mcg (15 mcg x 4)/0.5 mL IM syringe active Not Available Not Available N ot Available Fluarix Quad (PF) 60 mcg (15 mcg x 4)/0.5 mL IM syringe 12/08 completed Not Available Not Available Not Available Xiidra 5 % eye drops in a dropperette active Not Available Not Available Not Available Afluria Quad (PF) 60 mcg/0.5 mL intramuscul ar syringe 10/02 completed Not Available Not Available Not Available Flucelvax Quad 60 mcg (15 mcg x 4)/0.5 mL IM suspension 10/02 completed Not Available Not Available Not Available Vitals Date Recorded Body mass index (BMI) Body height Oxygen saturation Oxygen saturation in Arterial blood by Pulse oximetry Heart rate Body temperature Body weight Systolic And Diastolic Provider Name and Address Organization Details Last Updated DateTime 2 34.2 kg/m2 162.56 cm 95 % 95 % 79 /min 98.1 [degF] 17776.8 8 g 138/80 mm[Hg] Not Available [facility] 3 08:07:50 Date Recorded Body height Body mass index (BMI) Body weight Body temperature Heart rate Oxygen saturation Oxygen saturation in Arterial blood by Pulse oximetry Systolic And Diastolic Provider Name and Address Organization Details Last Updated DateTime 3 162.56 cm 29.7 kg/m2 90293.4 8 g 97.9 [degF] 64 /min 97 % 97 % 142/82 mm[Hg] SUZANNA Molina PR [employer] [facility] [employer] 3 14:53:31 Date Recorded Body height Body mass index (BMI) Body weight Body temperature Heart rate Oxygen saturation Oxygen saturation in Arterial blood by Pulse oximetry Systolic And Diastolic Provider Name and Address Organization Details Last Updated DateTime 3 162.56 cm 27.8 kg/m2 78454.9 6 g 97.4 [degF] 85 /min 95 % 95 % 118/62 mm[Hg] Mary Delgado MA [facility] 3 11:19:41 Social History Question Answer Notes LastModified by Organizat ion Details LastModified Time Tobacco Smoking Status Never Smoker Not Available [facility] 05/25/2022 08:05:40 What Is Your Level Of Caffeine Consumption? Moderate [id number] Information not available 05/25/2022 What Type Of Diet Are You Following? GLUTENFREE [id number] Information not available 05/25/2022 Are You Following A Low Salt Diet? No [id number] Information not available 05/25/2022 Do You Have Any Dietary Restrictions? Yes Gluten Sensitive [id number] Information not available 05/25/2022 Sex: Unknown Functional Status Question Answer Note LastModified by Organizat ion Details LastModified Time Do you use any illicit or recreational drugs? No [id number] Information not available 05/25/2022 What is your exercise level? Occasional [id number] Information not available 05/25/2022 Mental Status None recorded. Family History Relationship Description Onset Age of this Age Resolved Age Notes LastModified by Organization Details LastModified Time Father No current problems or disability [id number] Not available 05/25/2022 08:05:52 Mother No current problems or disability [id number] Not available 05/25/2022 08:05:52 Medical History No medical history recorded. Gynecological HistoryNo gynecological history recorded. Obstetrics History GPAL:G 0 P 0 0 0 0 Past Encounters Encounter ID Performer Location Encounter Start Date Encounter Closed Date Diagnosis/Indication Diagnosis SNOMED-CT Code Diagnosis ICD10 Code Diagnosis IMO Codes Diagnosis Note [id number] Janet Adame MD [facility] [address] [place] [address] 06/24/2021 00:00:00 06/24/2021 19:56:49 [id number] Janet Adame MD [facility] [place] [address] 09/14/2022 14:41:19 09/14/2022 15:50:05 Adult health examination 068467642 Z00.00 Screening for malignant neoplasm of breast 915599959 Z12.39 [id number] Janet Adame MD [facility] [place] [address] 02/22/2023 11:09:54 02/22/2023 11:55:44 Gastroesophageal reflux disease 832754315 K21.9 Hyperlipidemia 60651279 E78.5 Hypothyroidism 86299338 E03.9 Nausea 734176820 R11.0 Health Concerns Section Related Observation LastModified by Organization Detai ls LastModified Time None Recorded Concern Status LastModified by Organization Details LastModified Time None Recorded Advance Directives Directive None Recorded Payers Insurance Date Sequence Insurance Name Policy Number Policy Richardson Covered Member ID Richardson Member ID Guarantor Name 02/27/2023 1 [place] 106 Telly Worthy [id number] Lawanda Worthy 09/14/2022 1 [place] [id number] Telly Worthy [id number] Lawanda Worthy Notes Date Note Type Note Provider Name and Address Organization Details Recorded Time 09/14/2022 text/html Here today for annual physical. Eyes are bothering her and has gone to ophthomologist. Had herpes of the eye. Has spine issues being kept at bay. No BW needed. Not UTD with mammogram. Janet Adame MD [address], [place], [address], [employer] [facility] [employer] [employer] 09/15/2022 06:38:21 02/22/2023 text/html ROS as noted in the HPI nausea , vomiting (projectile). is keeping some things down. no fever , no bad food , no bad water SHEN Minor [address], [place], [address], [employer] [facility] [employer] 02/26/2023 10:05:37 OBGyn Episode No OBEpisode recorded.
--- OUTSIDE RECORDS SUMMARY | 2025-01-24 10:20 | XMS_ITS | Clinical Summary ---
Author Organization [facility] Address [address] [place] [address] Phone Care Team Providers Care Supplier Quality Engineer Name Role Phone Janet Adame MD Primary Care Provider [phone] Allergies No known active allergies Medications oxyCODONE-acetami [...] tablet Take 125 mcg by mouth daily hog ringer. Active liothyronine (CYTOMEL) 5 mcg Tablet Take [...] times daily. Active fluticasone (FLONASE) 50 mcg/spray [place], Suspension Administer 2 Sprays in each nostril [...] off. 60 Patch 1 3 11:12 AM BUNDLES HANGER 01/29/20 22 Active oxyCODONE-acetami nophen (PERCOCET) 5-325 mg tablet Take 1 tablet by mouth once to twice daily as needed 40 Tablet 3 2:13 PM BUNDLES HANGER 04/22/19 23 Active trifluridine (VIROPTIC) 1 % solution Administer 1 Drop in right eye every 2 hours while awake. 7.5 mL 3 4:21 PM BUNDLES HANGER 04/29/19 23 Active valACYclovir (VALTREX) 1 gram tablet Take 1 tablet (1 gram) by mouth 3 times daily for 10 days. 30 Tablet 3 12:42 PM BUNDLES HANGER 04/29/19 23 Active valACYclovir (VALTREX) 500 mg tablet TAKE ONE TABLET BY MOUTH ONCE DAILY 30 Tablet 5 05/15/19 23 Active baclofen (LIORESAL) 20 mg tablet Take 1 Tablet (20 mg) by mouth every 8 hours as needed. 270 Tablet 1 3 5:40 PM BUNDLES HANGER 05/20/19 23 Active baclofen (LIORESAL) 20 mg [...] BEFORE MEALS 30 Capsule 3 3:25 PM BUNDLES HANGER 02/23/20 23 Active esomeprazole (NexIUM) 40 mg Capsule, Delayed Release(E.C.) TAKE 1 CAPSULE BY MOUTH DAILY BEFORE MEALS 30 Capsule 6 02/23/20 23 Active ondansetron (ZOFRAN ODT) 4 mg Tablet, Rapid Dissolve DISSOLVE 1 TABLET BY MOUTH THREE TIMES DAILY NEEDED 30 Tablet 2 3 3:25 PM BUNDLES HANGER 02/23/20 23 Active baclofen (LIORESAL) 20 mg tablet Take 1 Tablet (20 mg) by mouth 3 times daily as needed. 270 Tablet 3 4:05 PM BUNDLES HANGER 02/25/20 23 Active oxyCODONE-acetami nophen (PERCOCET) 5-325 mg tablet Take 1 Tablet by mouth 2 times daily as needed. 40 Tablet 3 10:55 AM BUNDLES HANGER 02/28/20 23 Active losartan (COZAAR) 100 mg [...] 4 4:38 PM CDT 10/04/19 24 Active Lidocaine 5 % Cream Apply [...] needed 60 Patch 1 5 1:12 PM BUNDLES HANGER 02/20/20 24 Active oxyCODONE-acetami nophen (PERCOCET) 5-325 mg tablet Take 1 Tablet by mouth 2 times daily as needed. Max Daily Amount: 2 Tablets 40 Tablet 5 2:44 PM BUNDLES HANGER 05/08/19 25 Active lidocaine (LIDODERM) 5 % Adhesive Patch, Medicated APPLY 1-2 PATCHES TO AFFECTED AREA DAILY NEEDED. LEAVE ON FOR 12 HOURS, REMOVE FOR 12 HOURS. 60 Patch 1 5 12:26 PM CDT 06/11/19 25 Active naloxone (Narcan) 4 mg/spray [place], Non-Aerosol Use one spray as directed, only as needed. 2 Each 1 08/09/19 25 Active liothyronine (CYTOMEL) 5 mcg Tablet Take 1 Tablet (5 mcg) by mouth daily. 90 Tablet 1 5 10:56 AM CDT 08/21/19 25 Active oxyCODONE-acetami nophen (PERCOCET) 5-325 mg tablet Take 1 Tablet by mouth 1-2 times daily as needed. Max Daily Amount: 2 Tablets 30 Tablet 09/06/19 25 Active lidocaine (LIDODERM) 5 % Adhesive Patch, Medicated Apply 1 - 2 patches once daily. (12 hours on, 12 hours off) 60 Patch 1 09/10/19 25 Active escitalopram oxalate (LEXAPRO) 5 mg tablet Take 1 Tablet (5 mg) by mouth daily. Do not take with Tracy's Wort. 90 Tablet 1 5 2:07 PM CDT 09/14/19 25 Active valACYclovir (VALTREX) 500 mg tablet Take 1 Tablet (500 mg) by mouth 1 time daily as needed. 90 Tablet 5 11:10 AM CDT 10/11/19 25 Active lidocaine (LIDODERM) 5 % Adhesive Patch, Medicated APPLY 1-2 PATCHES TO AFFECTED AREA DAILY NEEDED. LEAVE ON FOR 12 HOURS, REMOVE FOR 12 HOURS. 60 Patch 1 5 3:38 PM CDT 10/22/19 25 Active oxyCODONE-acetami nophen (PERCOCET) 5-325 mg tablet Take 0.5-1 Tablet by mouth every 4 hours as needed for pain. Max Daily Amount: 6 Tablets 10 Tablet 11/19/19 25 Active sennosides-docusa te sodium (SENNA-S) 8.6-50 mg tablet Take 2 Tablets by mouth daily at bedtime. 8 Tablet 11/19/19 25 Active polyethylene glycol (MIRALAX) 17 gram Powder in Packet MIX 1 PACKET ( 17 GRAMS ) IN LIQUID OF CHOICE AND DRINK EVERY MORNING. 8 Each 11/19/19 25 Active lifitegrast (Xiidra) 5 % Dropperette Instill one drop into both eyes twice a day 180 Each 3 5 2:20 PM CDT 11/28/19 25 Active levothyroxine 100 mcg tablet Take 1 Tablet (100 mcg) by mouth daily. 90 Tablet 1 5 10:56 AM CDT 11/28/19 25 Active oxyCODONE-acetami nophen (PERCOCET) 5-325 mg tablet Take 1 tablet orally once to twice daily as needed. m54.17 lumbar region radiculopathy, 30 Tablet 5 11:36 AM CDT 12/14/19 25 Active baclofen (LIORESAL) 20 mg tablet Take 1 Tablet (20 mg) by mouth 3 times daily as needed. 270 Tablet 5 11:36 AM CDT 12/17/19 25 Active oxyCODONE-acetami nophen (PERCOCET) 5-325 mg tablet Take 1 tablet once to twice daily. m54.17 lumbar region radiculopathy,as needed 30 Tablet 5 4:40 PM CDT 01/10/20 25 Active lidocaine (LIDODERM) 5 % Adhesive Patch, Medicated APPLY 1-2 PATCHES TO THE SKIN NEEDED FOR 12 HOURS ON, THEN TAKE 12 HOUR BREAK. 60 Patch 1 5 9:30 AM CDT 01/21/20 25 Active atorvastatin (LIPITOR) 10 mg tablet Take 1 Tablet (10 mg) by mouth daily. 90 Tablet 1 5 2:20 PM CDT 01/22/20 25 Active losartan (COZAAR) 100 mg tablet Take 1 Tablet (100 mg) by mouth daily. 90 Tablet 1 5 2:20 PM CDT 01/22/20 25 Active atorvastatin (LIPITOR) 10 mg tablet TAKE ONE TABLET BY MOUTH ONCE DAILY 90 Tablet 4 5 11:10 AM CDT 10/31/19 24 025 Discontin ued(Reord er) losartan (COZAAR) 100 mg tablet Take 1 Tablet (100 mg) by mouth daily. 90 Tablet 3 5 11:10 AM CDT 10/31/19 24 025 Discontin ued(Reord er) Hospital, Clinic, or Other Facility Administered Medication Ordered Dose Route Frequency Start Date End Date Status methylPREDNISolone acetate (DEPO-Medrol) 40 mg/mL injection 80 mgIndications:Troch anteric bursitis of left hip 80 mg Intra-arTICu ONE TIME ONLY 05/10/2016 Active Active Problems No known active problems Encounters Date Type Department Care Team Description 01/15/2025 External Device Data [facility] ABSTRACTION Provider, Abstract 01/14/2025 External Device Data [facility] ABSTRACTION Provider, Abstract 12/17/2024 External Device Data [facility] ABSTRACTION Provider, Abstract 12/10/2024 External Device Data [facility] ABSTRACTION Provider, Abstract [...] 12/27/2021 ZOSTER VACCINE Completed 07/04/2023, 04/21/2023 Insurance FEDERAL RX [facility] [employer] [facility] DO PLANS (INTERNAL) [facility] RX [employer] Commercial Care Teams Supplier Quality Engineer Relationship Specialty Start Date End Date Janet Adame MD PCP - General Family Practice 08/11/15
== END 2025-01-24 09:41 | disposition home or self-care (01) ==
PROVIDERS: PCP Clinical Nurse Specialist; Visit Provider Clinical Nurse Specialist
DX: N28.89 Other specified disorders of kidney and ureter (principal)
CPT/HCPCS: 74183; A9577

== ENCOUNTER 2025-03-19 10:17 | Outpatient (NON) | payer BC, SELFPAY ==
--- OUTSIDE RECORDS SUMMARY | 2025-03-19 10:19 | XMS_ITS | Encounter Summary ---
Author Organization [facility] Address [address] [place] [address] Care Team Providers Care Cashier Credit Name Role Phone Janet Adame MD Primary Care Provider [phone] Encounter Details Date Type Department Care Team (Late st Contact Info) Description 03/18/2025 External Device Data [facility] ABSTRACTION Provider, Abstract NO ADDRESS ON FILE Social History Tobacco Use Types Packs/Day Years Used Date Smoking Tobacco: Never Alcohol Use Standard Drinks/Week Comments Not Asked 0 (1 standard drink = 0.6 oz pur e alcohol) Comments Unknown Sex and Gender Information Value Date Recorded Sex Assigned at Not on file Legal Sex Female 4:44 PM CDT Gender Identity Not on file Sexual Orientation Not on file documented as of this encounter Plan of Treatment Not on file documented as of this encounter Visit Diagnoses Not on filedocumented in this encounter Care Teams Cashier Credit Relationship Specialty Start Date End Date Janet Adame MD PCP - General Family Practice 08/11/15 documented as of this encounter
--- OUTSIDE RECORDS SUMMARY | 2025-03-19 10:19 | XMS_ITS | Clinical Summary ---
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 Active liothyronine (CYTOMEL) 5 mcg Tablet Take [...] times daily. Active fluticasone (FLONASE) 50 mcg/spray [place], Suspension Administer 2 Sprays in each nostril [...] off. 60 Patch 1 3 11:12 AM BUSINESS QUALITY ASSURANCE ANALYST 01/29/20 22 Active oxyCODONE-acetami nophen (PERCOCET) 5-325 mg tablet Take 1 tablet by mouth once to twice daily as needed 40 Tablet 3 2:13 PM BUSINESS QUALITY ASSURANCE ANALYST 04/22/19 23 Active trifluridine (VIROPTIC) 1 % solution Administer 1 Drop in right eye every 2 hours while awake. 7.5 mL 3 4:21 PM BUSINESS QUALITY ASSURANCE ANALYST 04/29/19 23 Active valACYclovir (VALTREX) 1 gram tablet Take 1 tablet (1 gram) by mouth 3 times daily for 10 days. 30 Tablet 3 12:42 PM BUSINESS QUALITY ASSURANCE ANALYST 04/29/19 23 Active valACYclovir (VALTREX) 500 mg tablet TAKE ONE TABLET BY MOUTH ONCE DAILY 30 Tablet 5 05/15/19 23 Active baclofen (LIORESAL) 20 mg tablet Take 1 Tablet (20 mg) by mouth every 8 hours as needed. 270 Tablet 1 3 5:40 PM BUSINESS QUALITY ASSURANCE ANALYST 05/20/19 23 Active baclofen (LIORESAL) 20 mg [...] BEFORE MEALS 30 Capsule 3 3:25 PM BUSINESS QUALITY ASSURANCE ANALYST 02/23/20 23 Active esomeprazole (NexIUM) 40 mg Capsule, Delayed Release(E.C.) TAKE 1 CAPSULE BY MOUTH DAILY BEFORE MEALS 30 Capsule 6 02/23/20 23 Active ondansetron (ZOFRAN ODT) 4 mg Tablet, Rapid Dissolve DISSOLVE 1 TABLET BY MOUTH THREE TIMES DAILY NEEDED 30 Tablet 2 3 3:25 PM BUSINESS QUALITY ASSURANCE ANALYST 02/23/20 23 Active baclofen (LIORESAL) 20 mg tablet Take 1 Tablet (20 mg) by mouth 3 times daily as needed. 270 Tablet 3 4:05 PM BUSINESS QUALITY ASSURANCE ANALYST 02/25/20 23 Active oxyCODONE-acetami nophen (PERCOCET) 5-325 mg tablet Take 1 Tablet by mouth 2 times daily as needed. 40 Tablet 3 10:55 AM BUSINESS QUALITY ASSURANCE ANALYST 02/28/20 23 Active losartan (COZAAR) 100 mg [...] needed 60 Patch 1 5 1:12 PM BUSINESS QUALITY ASSURANCE ANALYST 02/20/20 24 Active oxyCODONE-acetami nophen (PERCOCET) 5-325 mg tablet Take 1 Tablet by mouth 2 times daily as needed. Max Daily Amount: 2 Tablets 40 Tablet 5 2:44 PM BUSINESS QUALITY ASSURANCE ANALYST 05/08/19 25 Active lidocaine (LIDODERM) 5 % Adhesive Patch, Medicated APPLY 1-2 PATCHES TO AFFECTED AREA DAILY NEEDED. LEAVE ON FOR 12 HOURS, REMOVE FOR 12 HOURS. 60 Patch 1 5 12:26 PM CDT 06/11/19 25 Active naloxone (Narcan) 4 mg/spray [place], Non-Aerosol Use one spray as directed, only as needed. 2 Each 1 08/09/19 25 Active oxyCODONE-acetami nophen (PERCOCET) 5-325 mg [...] twice a day 180 Each 3 5 2:39 PM BUSINESS QUALITY ASSURANCE ANALYST 11/28/19 25 Active levothyroxine 100 mcg tablet Take 1 Tablet (100 mcg) by mouth daily. 90 Tablet 1 5 1:31 PM BUSINESS QUALITY ASSURANCE ANALYST 11/28/19 25 Active oxyCODONE-acetami nophen (PERCOCET) 5-325 mg tablet Take 1 tablet orally once to twice daily as needed. m54.17 lumbar region radiculopathy, 30 Tablet 5 11:36 AM CDT 12/14/19 25 Active oxyCODONE-acetami nophen (PERCOCET) 5-325 mg [...] 5 2:20 PM CDT 01/22/20 25 Active oxyCODONE-acetami nophen (PERCOCET) 5-325 mg tablet Take 1 Tablet by mouth 1-2 TIMES DAILY NEEDED. 30 Tablet 5 11:11 AM BUSINESS QUALITY ASSURANCE ANALYST 02/06/20 25 Active liothyronine (CYTOMEL) 5 mcg Tablet Take 1 Tablet (5 mcg) by mouth daily. 90 Tablet 1 5 1:31 PM BUSINESS QUALITY ASSURANCE ANALYST 02/27/20 25 Active oxyCODONE-acetami nophen (PERCOCET) 5-325 mg tablet Take 1 Tablet by mouth 1-2 times daily as needed. Max Daily Amount: 2 Tablets 30 Tablet 5 1:07 PM BUSINESS QUALITY ASSURANCE ANALYST 03/05/20 25 Active baclofen (LIORESAL) 20 mg tablet Take 1 Tablet (20 mg) by mouth 3 times daily as needed. 270 Tablet 5 2:39 PM BUSINESS QUALITY ASSURANCE ANALYST 03/05/20 25 Active lidocaine (LIDODERM) 5 % Adhesive Patch, Medicated Apply 1-2 Patch to affected area once daily-leave on 12 hours, then remove and leave off 12 hours before applying a new patch. May cut into smaller size and wear clothing over area. 60 Patch 1 5 2:39 PM BUSINESS QUALITY ASSURANCE ANALYST 03/05/20 25 Active nitrofurantoin (MACROBID) 100 mg capsule Take 1 Capsule (100 mg) by mouth every 12 hours for 3 days. TAKE WITH A MEAL/FOOD. 6 Capsule 03/19/20 25 025 Active liothyronine (CYTOMEL) 5 mcg Tablet Take 1 Tablet (5 mcg) by mouth daily. 90 Tablet 1 5 10:56 AM CDT 08/21/19 25 025 Discontin ued(Reord er) baclofen (LIORESAL) 20 mg tablet Take 1 Tablet (20 mg) by mouth 3 times daily as needed. 270 Tablet 5 11:36 AM CDT 12/17/19 25 025 Discontin ued(Reord er) Hospital, Clinic, or Other Facility Administered Medication Ordered Dose Route Frequency Start Date End Date Status methylPREDNISolone acetate (DEPO-Medrol) 40 mg/mL injection 80 mgIndications:Troch anteric bursitis of left hip 80 mg Intra-arTICu ONE TIME ONLY 05/10/2016 Active Active Problems No known active problems Encounters Date Type Department Care Team Description 03/18/2025 External Device Data [facility] ABSTRACTION Provider, Abstract 01/15/2025 External Device Data [facility] ABSTRACTION Provider, [...] 12/27/2021 ZOSTER VACCINE Completed 07/04/2023, 04/21/2023 Insurance [facility] FEDERAL RX [facility] [employer] RX DO PLANS (INTERNAL) [facility] Plans RX [employer] Commercial Care Teams Video Software Engineer Relationship Specialty Start Date End Date Janet Adame MD PCP - General Family Practice 08/11/15
[2025-03-19 17:25] LABS: Add Urine Microscopic? YES; Appearance Urine Clear (Clear); Glucose Urine UA Negative (Negative); Leukocyte Esterase Ur Trace LEU/UL (Negative); Need Manual Microscopic Reviewed; Nitrate Urine Negative (Negative); Non Pathogenic Casts 0-2; Specific Grav Ur 1.015 (1.001-1.035)
== END 2025-03-19 10:18 | disposition home or self-care (01) ==
LOC: ANHGOSHLAB 10:18
PROVIDERS: PCP Clinical Nurse Specialist; Visit Provider Nurse Practitioner
DX: R30.0 Dysuria (principal)
CPT/HCPCS: 81001; 87086